=== PATIENT | female | born 1950 | race Caucasian/White ===

== ENCOUNTER 2024-11-08 13:51 | Outpatient (CLI) | payer MEDICARE, BC, SELFPAY | END 2024-11-08 13:52 | disposition home or self-care (01) | LOC: AMB 11-20 19:25 | PROVIDERS: PCP Family Medicine; Visit Provider Internal Medicine | DX: R07.9 Chest pain, unspecified (principal) | CPT/HCPCS: A0425; A0427 ==

== ENCOUNTER 2024-11-08 14:30 | Emergency (ER) | payer MEDICARE, BC, MEDICAID, SELFPAY ==
[2024-11-08] VITALS (66 sets, daily range): BP systolic 80–99; BP diastolic 54–71; PULSE 91–106; RESP 16; TEMP 36.7; O2SAT 96–100; BMI 46.5
--- OUTSIDE RECORDS SUMMARY | 2024-11-08 14:33 | XMS_ITS ---
Author Name Ellen, Clinic Address [address] [place] [address] Phone [phone] Organization [facility] e, NA DOCUMENT DISCLAIMER Multiple document versions may exist, please be sure you review the latest version. The information in the [facility] Continuity of Care Document represents a summary of certain health and medical information. It may not contain the complete medical history for the patient and should be independently verified. The represented time in the document is Eastern Time. 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 Active May 27, 2022 Encounter for adjustment and management of vascular access device Z45.2 Active January 17, 2022 Fever, unspecified R50.9 Active January 13, 2020 Pain, unspecified R52 Active January 13, 2020 Headache, unspecified R51.9 Active January 13, 2020 Hypertensive chronic kidney disease with stage 1 through stage 4 chronic kidney disease, or unspecified chronic kidney disease I12.9 Active 2019 Iron deficiency anemia, unspecified D50.9 Activ e November 22, 2019 End stage renal disease N18.6 Active 2019 Anemia in chronic kidney disease D63.1 Active November 22, 2019 Secondary hyperparathyroidism of renal origin N25.81 Active November 22, 2019 ALLERGIES AND ADVERSE REACTIONS Substance Reaction Severity Status Vicodin Flushing (Red Skin) Active brimonidine Unknown Active quinidine Skin Rash Active Darvocet-N Unknown Active Fluarix Quad Hives Moderate Active benzalkonium chloride Unknown Active cobalt Unknown Active IODINATED CONTRAST MEDIA Unknown Act luis latex Itching Active ASPIRIN Unknown Active oxycodone Unknown Active Levaquin Itching Active Talwin Nausea/Vomiting Active astemizole Unknown Active Toradol Nephrotoxicity Active Sulfa (Sulfonamide Antibiotics) Skin Rash Active MORPHINE Unknown Active Percodan Nausea/Vomiting Active LISINOPRIL Unknown Active succinylcholine Unknown Active propoxyphene Unknown Active cinacalcet Unknown Active pentazocine Unknown Active cranberry Unknown Active methacholine Unknown Active Naprosyn GI bleeding Active SOCIAL HISTORY Tobacco Use Status Tobacco Type Unknown if ever consumed tobacco - Caregiver Characteristics No Information Available Characteristics of Home environment No Information Available Gender and Sex Information Gender Identity Sexual Orientation Female No Information Avail able MEDICATIONS Prescribed Medications for Dialysis Treatments Medication Instructions Dosage Route Start Date End Date Stat Doxercalciferol (Hectorol) 3X Week 7 mcg Intravenous - push November 04, 2024 November 03, 2025 Active Heparin Sodium (Porcine) 1,000 Units/mL Catheter Lock Arterial Post Dialysis, Every Treatment 2000 units Arterial Red Port November 07, 2024 November 06, 2025 Active Heparin Sodium (Porcine) 1,000 Units/mL Catheter Lock Arterial Every Treatment 2000 units Arterial Red Port December 06, 2023 December 04, 2024 Active Heparin Sodium (Porcine) 1,000 Units/mL Catheter Lock Venous Every Treatment 2100 units Venous Blue Port December 06, 2023 December 04, 2024 Active Heparin Sodium (Porcine) 1,000 Units/mL Catheter Lock Venous Post Dialysis, Every Treatment 2100 units Venous Blue Port November 07, 2024 November 06, 2025 Active Heparin Sodium (Porcine) 1,000 Units/mL Systemic Bolus, Every Treatment, Total treatment minutes 180 4000 units Intravenous - push May 01, 2024 April 30, 2025 Active Heparin Sodium (Porcine) 1,000 Units/mL Systemic Bolus, Every Treatment, Total treatment minutes 180 4000 units Intravenous - push November 07, 2024 November 06, 2025 Active Mircera During Dialysis, Every 2 weeks 50 mcg Intravenous - push October 30, 2024 October 29, 2025 Active Doxercalciferol (Hectorol) 3X Week 5 mcg Intravenous - push October 02, 2024 October 01, 2025 Discontinued Iron Sucrose (Venofer) During Dialysis, 1X Week 50 mg Intravenous - push October 14, 2024 October 13, 2025 Discontinued Iron Sucrose (Venofer) During Dialysis, 3X Week 100 mg Intravenous - push October 02, 2024 October 11, 2024 Discontinued Home Medications Medication Instructions Dosage Route Start Date End Date Status acetaminophen 500 mg Take by mouth three times a day 2 capsule ORAL July 17, 2023 Active allopurinol 100 mg Take by mouth three times a week as directed 1 tablet ORAL August 18, 2017 Active amiodarone 200 mg Take by mouth once a day 1 tablet ORAL November 27, 2017 Active apixaban 2.5 mg by mouth twice a day 1 tablet ORAL August 02, 2023 Active Atrac-Tain (with AHA) 10-4% to affected area twice a day TOPICAL August 02, 2023 Active Belbuca 150 mcg BUCCAL September 20, 2024 Active carboxymethylcellulose sodium 1% into both eyes three times a day 2 drop OPHTHALMIC August 02, 2023 Active cephalexin 500 mg Take by mouth every morning 1 capsule ORAL May 09, 2023 Active cetirizine 5 mg Take by mouth once a day 1 tablet ORAL May 24, 2023 Active Cipro 500 mg Take by mouth every evening 1 tablet ORAL February 17, 2023 Active cyanocobalamin (vitamin B-12) 1,000 mcg Take by mouth every morning 1 capsule ORAL December 30, 2019 Active cyclobenzaprine 10 mg Take by mouth three times a day as needed 1 tablet ORAL May 24, 2023 Active doxycycline hyclate 100 mg Take by mouth twice a day 1 tablet ORAL October 04, 2023 Active Eucerin Original Apply to affected area twice a day as needed TOPICAL May 24, 2023 Active ferrous sulfate 325 mg (65 mg iron) Take by mouth once a day with meals 1 tablet ORAL May 24, 2023 Active Fosrenol 500 mg Take by mouth three times a day with meals 3 tablet ORAL September 29, 2023 Active Miralax 17 gram/dose Take dissolved in water once a day as directed 17 gram ORAL August 18, 2017 Active Nephro-Quincy 0.8 mg Take by mouth every evening with meals 1 tablet ORAL January 02, 2019 Active Nepro Carb Steady 0.08 gram-1.8 kcal/mL as needed ORAL May 24, 2023 Active nystatin 100,000 unit/gram Apply to affected area twice a day as needed TOPICAL November 22, 2019 Active omeprazole 20 mg Take by mouth once a day 1 capsule ORAL April 26, 2023 Active oxycodone 5 mg Take by mouth every four hours as needed for pain 1 tablet ORAL May 24, 2023 Active Senna-S 8.6-50 mg Take by mouth twice a day as needed 2 tablet ORAL December 30, 2019 Active Velphoro 500 mg Take by mouth three times a day with meals 1 tablet ORAL September 30, 2024 Active Zofran 8 mg Take by mouth every six hours as needed 1 tablet by mouth January 02, 2019 Active VITAL SIGNS Post-Treatment Vital Signs Vital Sign Value Date / Time Blood Pressure-sitting 129/74 mmHg October 232024 11:27 AM Heart Rate 101 beats per minute November 07, 2024 11:27 AM Respiratory Rate 16 breaths per minute October 232024 11:27 AM Temperature 97.8 deg. F November 07, 2024 11:27 AM Weight Vital Sign Value Date / Time Estimated Dry Weight 109.8 kg August 11:59 PM Pre-Dialysis 115.50 kg November 07, 2024 11:27 AM Post-Dialysis 113.30 kg November 07, 2024 11:27 AM Other Other Value Date / Time Height 157 cm February 26, 2024 12: 00 AM Body Mass Index 44.55 kg/m2 November 01, 2024 04:31 PM HEALTH CONCERNS LAB RESULTS Hematology Result Type Result Value Relevant Referen ce Range Interpretation Date Platelets 161 1000/mcL 130 - 400 1000/mcL - Augu 2023 UIBC (Calc) 116 mcg/dL 155 - 355 mcg/dL Low May 29, 2024 WBC (No Diff) 6.96 1000/mcL 4.80 - 10.80 1000/mcL - May 29, 2024 Ferritin 1054 ng/mL 10 - 291 ng/mL High May 29, 2024 TIBC 178 mcg/dL 185 - 515 mcg/dL Low May Transferrin Sat. (Calc) 35 % 20 - 55 % - May 29, 2024 WBC (No Diff) 7.40 1000/mcL 4.80 - 10.80 1000/mcL - June 26, 2024 Platelets 166 1000/mcL 130 - 400 1000/mcL - Jun emb2023 UIBC (Calc) 122 mcg/dL 155 - 355 mcg/dL Low Junemb 2023 Transferrin Sat. (Calc) 36 % 20 - 55 % - June 26, 2024 TIBC 192 mcg/dL 185 - 515 mcg/dL - 2023 Platelets 167 1000/mcL 130 - 400 1000/mcL - Octo 2023 UIBC (Calc) 152 mcg/dL 155 - 355 mcg/dL Low July 24, 2024 WBC (No Diff) 7.17 1000/mcL 4.80 - 10.80 1000/mcL - July 24, 2024 Transferrin Sat. (Calc) 31 % 20 - 55 % - July 24, 2024 TIBC 220 mcg/dL 185 - 515 mcg/dL - July 24, 2024 Hemoglobin x 3 30.3 % 36.0 - 48.0 % Low August 14, 2024 Hemoglobin x 3 31.2 % 36.0 - 48.0 % Low August 21, 2024 Ferritin 1039 ng/mL 10 - 291 ng/mL High August Platelets 174 1000/mcL 130 - 400 1000/mcL - Nove mber 2023 Hemoglobin x 3 31.2 % 36.0 - 48.0 % Low Novembe r 2023 RDW 14.7 % 11.5 - 14.5 % High August MCHC 32.3 g/dL 30.0 - 36.0 g/dL - August 28, 2024 MCH 33.0 pg 27.0 - 31.0 pg High August Iron 78 mcg/dL 30 - 160 mcg/dL - August 28, 2024 TIBC 222 mcg/dL 185 - 515 mcg/dL - August 28, 2024 UIBC (Calc) 144 mcg/dL 155 - 355 mcg/dL Low Novembe r 2023 Transferrin Sat. (Calc) 35 % 20 - 55 % - August 28 WBC (No Diff) 9.05 1000/mcL 4.80 - 10.80 1000/mcL - August 28, 2024 Hemoglobin x 3 29.7 % 36.0 - 48.0 % Low Novembe r 2023 Hemoglobin x 3 30.3 % 36.0 - 48.0 % Low Novembe r 2023 Hemoglobin x 3 31.8 % 36.0 - 48.0 % Low Novembe r 2023 Transferrin Sat. (Calc) 19 % 20 - 55 % Low September 25 TIBC 209 mcg/dL 185 - 515 mcg/dL - September 25, 2024 UIBC (Calc) 170 mcg/dL 155 - 355 mcg/dL - Decembe r 2023 Iron 39 mcg/dL 30 - 160 mcg/dL - September 25, 2024 MCHC 31.5 g/dL 30.0 - 36.0 g/dL - September 25, 2024 RDW 15.6 % 11.5 - 14.5 % High September MCH 32.6 pg 27.0 - 31.0 pg High September Platelets 128 1000/mcL 130 - 400 1000/mcL Low Dece mber 2023 Hemoglobin x 3 33.9 % 36.0 - 48.0 % Low Decembe r 2023 WBC (No Diff) 11.36 1000/mcL 4.80 - 10.80 1000/mcL High September 25, 2024 Hemoglobin x 3 36.0 % 36.0 - 48.0 % - Decembe r 2023 Hemoglobin x 3 33.9 % 36.0 - 48.0 % [facility] 11.3 g/dL 12.0 - 16.0 g/dL Low October 09, 2024 Hemoglobin x 3 34.8 % 36.0 - 48.0 % Low Decembe r 2023 HGB 11.6 g/dL 12.0 - 16.0 g/dL Low October 17, 2024 Hemoglobin x 3 31.2 % 36.0 - 48.0 % Low Decembe r 2023 HGB 10.4 g/dL 12.0 - 16.0 g/dL Low October 22, 2024 RBC 3.08 mill/mcL 4.20 - 5.40 mill/mcL Low October 30, 2024 WBC (No Diff) 10.47 1000/mcL 4.80 - 10.80 1000/mcL - October 30, 2024 MCHC 33.4 g/dL 30.0 - 36.0 g/dL - October 30, 2024 MCH 33.6 pg 27.0 - 31.0 pg High October HCT 30.9 % 37.0 - 47.0 % Low October 30, 2024 Platelets 117 1000/mcL 130 - 400 1000/mcL Low Senthil mary2024 Hemoglobin x 3 31.2 % 36.0 - 48.0 % Low October 30, 2024 HGB 10.4 g/dL 12.0 - 16.0 g/dL Low October 30, 2024 RDW 15.5 % 11.5 - 14.5 % High October 30, 2024 Transferrin Sat. (Calc) 57 % 20 - 55 % High October 30, 2024 TIBC 232 mcg/dL 185 - 515 mcg/dL - October 30, 2024 UIBC (Calc) 100 mcg/dL 155 - 355 mcg/dL Low October 30, 2024 Iron 132 mcg/dL 30 - 160 mcg/dL - October Iron 116 mcg/dL 30 - 160 mcg/dL - October 232024 UIBC (Calc) 127 mcg/dL 155 - 355 mcg/dL Low November 01, 2024 Neutrophils 84.9 % 40.0 - 75.0 % High October Monocytes 7.0 % 3.0 - 10.0 % - November 01, 2024 Lymphocytes 5.5 % 19.0 - 48.0 % Low October Basophils 1.2 % 0.0 - 1.5 % - November 01 025 Eosinophil 0.6 % 0.0 - 7.0 % - November 01 Platelets 128 1000/mcL 130 - 400 1000/mcL Low Senthil mary2024 CHARMAINE 1.0 % 0.0 - 4.0 % - November 01 025 Transferrin Sat. (Calc) 48 % 20 - 55 % - November 01, 2024 TIBC 243 mcg/dL 185 - 515 mcg/dL - November 01, 2024 HGB 9.6 g/dL 12.0 - 16.0 g/dL Low November 06, 2024 Hemoglobin x 3 28.8 % 36.0 - 48.0 % Low November 06, 2024 Metabolic/Renal Result Type Result Value Relevant Referen ce Range Interpretation Date URR, Calc 77 % 65 - 80 % - August 28 024 BUN, Post 14 mg/dL 6 - 19 mg/dL - August 28, 2024 Chloride 103 mEq/L 96 - 108 mEq/L - August Potassium 5.5 mEq/L 3.5 - 5.1 mEq/L High August 28, 2024 Bicarbonate 21 mEq/L 20 - 31 mEq/L - August Sodium 139 mEq/L 136 - 145 mEq/L - August 28, 2024 BUN/Creat Ratio 13.0 10.0 - 20.0 - August 28, 2024 Creatinine, Serum 4.70 mg/dL 0.60 - 1.30 mg/dL High August 28, 2024 BUN 61 mg/dL 6 - 19 mg/dL High August 28, 2024 Bicarbonate 25 mEq/L 20 - 31 mEq/L - September Chloride 103 mEq/L 96 - 108 mEq/L - September Potassium 4.7 mEq/L 3.5 - 5.1 mEq/L - September 25, 2024 Sodium 141 mEq/L 136 - 145 mEq/L - September 25, 2024 BUN/Creat Ratio 16.2 10.0 - 20.0 - September 25, 2024 URR, Calc 91 % 65 - 80 % High September 25 024 BUN, Post 7 mg/dL 6 - 19 mg/dL - September 25, 2024 Creatinine, Serum 4.94 mg/dL 0.60 - 1.30 mg/dL High September 25, 2024 BUN 80 mg/dL 6 - 19 mg/dL High September 25, 2024 BUN, Post 19 mg/dL 6 - 19 mg/dL - October 30, 2024 URR, Calc 80 % 65 - 80 % - October 30 Bicarbonate 22 mEq/L 20 - 31 mEq/L - October Chloride 104 mEq/L 96 - 108 mEq/L - October Potassium 7.0 mEq/L 3.5 - 5.1 mEq/L High October Sodium 141 mEq/L 136 - 145 mEq/L - October BUN/Creat Ratio 19.0 10.0 - 20.0 - October 30, 2024 Creatinine, Serum 4.89 mg/dL 0.60 - 1.30 mg/dL High October 30, 2024 BUN 93 mg/dL 6 - 19 mg/dL High October 30, 2024 Potassium 6.1 mEq/L 3.5 - 5.1 mEq/L High October 232024 Sodium 141 mEq/L 136 - 145 mEq/L - October 232024 Bicarbonate 24 mEq/L 20 - 31 mEq/L - October Chloride 103 mEq/L 96 - 108 mEq/L - October Creatinine, Serum 4.21 mg/dL 0.60 - 1.30 mg/dL High November 01, 2024 BUN 78 mg/dL 6 - 19 mg/dL High November 01, 2024 BUN/Creat Ratio 18.5 10.0 - 20.0 - November 01, 2024 URR, Calc 78 % 65 - 80 % - November 01 BUN, Post 17 mg/dL 6 - 19 mg/dL - November 01, 2024 Potassium 5.6 mEq/L 3.5 - 5.1 mEq/L High October 232024 HD Adequacy Result Type Result Value Relevant Referen ce Range Interpretation Date Krt/V 0.00 No Reference Ran ge Provided - May 29, 2024 Krt/V 0.00 No Reference Ran ge Provided - June 26, 2024 Krt/V 0.00 No Reference Ran ge Provided - July 24, 2024 wstdKt/V, residual 0.0 No Reference Range Provided - August 28, 2024 wstdKt/V without residual 2.5 No Reference Range Provided - August 28, 2024 spKt/V (Daugirdas II) 1.70 No Reference Range Provided - August 28, 2024 eKt/V ([place]) 1.48 No Reference Range Provided - August 28, 2024 wstdKt/V 2.5 No Reference Ran ge Provided - August 28, 2024 spKt/V Gotch 1.77 No Reference Ran ge Provided - August 28, 2024 Krt/V 0.00 No Reference Ran ge Provided - August 28, 2024 Krt/V 0.00 No Reference Ran ge Provided - September 25, 2024 spKt/V Gotch 3.08 No Reference Ran ge Provided - September 25, 2024 wstdKt/V without residual 3.0 No Reference Range Provided - September 25, 2024 eKt/V ([place]) 2.57 No Reference Range Provided - September 25, 2024 spKt/V (Daugirdas II) 2.96 No Reference Range Provided - September 25, 2024 wstdKt/V 3.0 No Reference Ran ge Provided - September 25, 2024 wstdKt/V, residual 0.0 No Reference Range Provided - September 25, 2024 wstdKt/V without residual 2.6 No Reference Range Provided - October 30, 2024 wstdKt/V, residual 0.0 No Reference Range Provided - October 30, 2024 spKt/V (Daugirdas II) 1.85 No Reference Range Provided - October 30, 2024 wstdKt/V 2.6 No Reference Ran ge Provided - October 30, 2024 eKt/V ([place]) 1.62 No Reference Range Provided - October 30, 2024 Krt/V 0.00 No Reference Ran ge Provided - October 30, 2024 spKt/V Gotch 1.92 No Reference Ran ge Provided - October 30, 2024 wstdKt/V, residual 0.0 No Reference Range Provided - November 01, 2024 Krt/V 0.00 No Reference Ran ge Provided - November 01, 2024 wstdKt/V 2.6 No Reference Ran ge Provided - November 01, 2024 wstdKt/V without residual 2.6 No Reference Range Provided - November 01, 2024 eKt/V ([place]) 1.57 No Reference Range Provided - November 01, 2024 spKt/V (Daugirdas II) 1.80 No Reference Range Provided - November 01, 2024 spKt/V Gotch 1.89 No Reference Ran ge Provided - November 01, 2024 Bone/Mineral Result Type Result Value Relevant Referen ce Range Interpretation Date Magnesium 2.3 mg/dL 1.6 - 2.6 mg/dL - December 01, 2023 Magnesium 2.0 mg/dL 1.6 - 2.6 mg/dL - February 20 Vitamin D 25 Hydroxy 29.3 ng/mL 30.0 - 100.0 ng/mL Low February 21, 2024 Magnesium 2.3 mg/dL 1.6 - 2.6 mg/dL - May PTH-Intact, Plasma 514 pg/mL 16 - 80 pg/mL High May us2023 PTH-Intact, Plasma 414 pg/mL 16 - 80 pg/mL High Sep tember 2023 PTH-Intact, Plasma 603 pg/mL 16 - 80 pg/mL High Jul zaira2023 PTH-Intact, Plasma 1095 pg/mL 16 - 80 pg/mL High Aug Vitamin D 25 Hydroxy 13.2 ng/mL 30.0 - 100.0 ng/mL Low August 28, 2024 Magnesium 2.1 mg/dL 1.6 - 2.6 mg/dL - August 28, 2024 Corrected Ca x P Product 62 0 - 54 High August 28 Calcium, Total 8.8 mg/dL 8.7 - 10.4 mg/dL - 2023 Ca x P Product 62 0 - 54 High August Phosphorus 7.0 mg/dL 2.6 - 4.5 mg/dL High August 28, 2024 Alkaline Phosphatase 192 U/L 35 - 104 U/L High No vember 2023 Ca x P Product 54 0 - 54 - September Phosphorus 6.2 mg/dL 2.6 - 4.5 mg/dL High September 25, 2024 Calcium, Total 8.7 mg/dL 8.7 - 10.4 mg/dL - 2023 Corrected Ca x P Product 55 0 - 54 High September 25 PTH-Intact, Plasma 1289 pg/mL 16 - 80 pg/mL High Sep PTH-Intact, Plasma 1352 pg/mL 16 - 80 pg/mL High Oct Corrected Ca x P Product 65 0 - 54 High October 30, 2024 Ca x P Product 66 0 - 54 High October Phosphorus 7.6 mg/dL 2.6 - 4.5 mg/dL High October Calcium, Total 8.7 mg/dL 8.7 - 10.4 mg/dL - 2024 Phosphorus 6.9 mg/dL 2.6 - 4.5 mg/dL High October 232024 Calcium, Total 8.8 mg/dL 8.7 - 10.4 mg/dL - 2024 Ca x P Product 61 0 - 54 High October Magnesium 2.2 mg/dL 1.6 - 2.6 mg/dL - October 232024 Liver/Nutrition Result Type Result Value Relevant Referen ce Range Interpretation Date eNPCR 1.07 No Reference Ran ge Provided - August 28, 2024 A/G Ratio 1.8 1.0 - 2.0 - August 28 024 Globulin (Calc) 2.2 g/dL 2.0 - 4.0 g/dL - 2023 Albumin (BCG) 4.0 g/dL 3.5 - 5.2 g/dL - 2023 Total Protein 6.2 g/dL 6.0 - 8.5 g/dL - 2023 A/G Ratio 2.0 1.0 - 2.0 - September 25 Globulin (Calc) 2.0 g/dL 2.0 - 4.0 g/dL - 2023 Albumin (BCG) 3.9 g/dL 3.5 - 5.2 g/dL - 2023 Total Protein 5.9 g/dL 6.0 - 8.5 g/dL Low 2023 eNPCR 1.72 No Reference Ran ge Provided - September 25, 2024 A/G Ratio 2.1 1.0 - 2.0 High October 30 Globulin (Calc) 2.0 g/dL 2.0 - 4.0 g/dL - 2024 eNPCR 1.62 No Reference Ran ge Provided - October 30, 2024 Albumin (BCG) 4.2 g/dL 3.5 - 5.2 g/dL - October 30, 2024 Total Protein 6.2 g/dL 6.0 - 8.5 g/dL - October 30, 2024 Total Protein 6.2 g/dL 6.0 - 8.5 g/dL - November 01, 2024 eNPCR 1.49 No Reference Ran ge Provided - November 01, 2024 Trace Elements Result Type Result Value Relevant Reference Range Interpre tation Date Aluminum 6 mcg/L 0 - 10 mcg/L - August 28, 2024 Infectious Diseases Result Type Result Value Relevant Referen ce Range Interpretation Date Hep B Surface Ab (anti-HBs) < 10 mIU/mL No Reference Range Provided - August 28, 2024 Hep B Surface Ag (HBsAg) Negative No Reference Range Provided - October 30, 2024 DIALYSIS PRESCRIPTION Conventional Hemodialysis Data Element Value Order Date/Time August 30, 2024 Frequency 3X Week Treatment Days MonWedFri Dialyzer [id number] Optiflux Treatment Time (Total Minutes) 240 min Blood Flow Rate (mL/min) 450 mL/min Dialysate Flow Rate Manual 800 Estimated Dry Weight 109.8 kg Dialysate Concentrate 2.0 K, 2.5 Ca, 1.0 Mg, 100 Dextrose (G2251) Sodium (mEq/L) 138 mEq/L Bicarb Machine Setting (mEq/L) 33 mEq/L Dialysis Access Hemodialysis-CV Cath eter-Tunneled, Chest, Right Jugular Access Placed on January 14, 2022 IMMUNIZATIONS Vaccine Date Dose Route Status [id number]-P-[id number], series 2 of February 26, 2020 40.0 mcg Int ramuscular Completed XSNYLJP-[id number]-PGDIZ, series 1 of January 22, 2020 40.0 mcg I ntramuscular Completed IXWWROL-W-HDLEN, series 4 of January 23, 2019 40.0 mcg I ntramuscular Completed WQGLDKG-D-[id number], series 3 of October 24, 2018 40.0 mcg Intramuscular Completed QXHQBDT-G-LORAV, series 2 of September 26, 2018 40.0 mcg Intramuscular Completed VCVQJVH-F-ZSPLC, series 1 of August 29, 2018 40.0 mcg Intramuscular Completed PREVNAR May 23, 2018 0.5 mL Intramuscular Comple aydee [id number] December 27, 2017 40.0 mcg Intramuscular Co mpleted PNEUMOVAX November 06, 2017 0.5 mL Intramuscular Com pleted [id number]-Y-KNRIO October 09, 2017 40.0 mcg Intramuscular Completed KDMPUED-Q-CVBVM September 06, 2017 40.0 mcg Intramuscular Completed GBQJITP-X-JBWIS August 09, 2017 40.0 mcg Intramuscular Completed TRANSPLANT WAITLIST STATUS No Information on Transplant Waitlist Status ADVANCE DIRECTIVES Directive Description Ordered By Effective Date Resuscitation status Full Code Wesley Hrerera Jan 05, 2024 DIALYSIS TREATMENTS Conventional Hemodialysis Date Pre-Treatment Vitals Post-Treatment Sherice ls Duration (hr) BFR (mL/min) Dialysate Dialyzer Dialysis Access Meds Admin Oct 2024 Weight 118.70 kg Weight 115.80 kg 04:00:00 460 2.0 K, 2.5 Ca, 1.0 Mg, 100 Dextrose (G2251) 180nre Optifl ux Blood Pressure-sitting 150/82 mmHg Blood Pressure-sit ting 115/69 mmHg Heart Rate 91 beats per minute Heart Rate 106 beat s per minute Respiratory Rate 20 breaths per minute Respiratory Rate 16 breaths per minute Temperature 97.7 deg. F Temperature 97.4 deg. F November 06, 2024 Weight 118.10 kg Weight 115.90 kg 03:55:00 460 2.0 K, 2.5 Ca, 1.0 Mg, 100 Dextrose (G2251) 180nre Optiflux Hemodialysis-CV Catheter-Tunneled, Chest, Right Jugular Access Placed on January 14, 2022 Doxercalciferol (Hectorol); 7mcg,Intravenous - push Heparin Sodium (Porcine) 1,000 Units/mL Catheter Lock Arterial; 2000units,Arterial Red Port Heparin Sodium (Porcine) 1,000 Units/mL Catheter Lock Venous; 2100units,Venous Blue Port Heparin Sodium (Porcine) 1,000 Units/mL Systemic; 4000units,Intravenous - push Blood Pressure-sitting 131/74 mmHg Blood Pressure-sit ting 109/61 mmHg Heart Rate 98 beats per minute Heart Rate 104 beat s per minute Respiratory Rate 20 breaths per minute Respiratory Rate 18 breaths per minute Temperature 97.9 deg. F Temperature 97.8 deg. F November 07, 2024 Weight 115.50 kg Weight 113.30 kg 03:32:00 300 3.0 K, 2.5 Ca, 1.0 Mg, 100 Dextrose (G3251) 160nre Optiflux Hemodialysis-CV Catheter-Tunneled, Chest, Right Jugular Access Placed on January 14, 2022 Heparin Sodium (Porcine) 1,000 Units/mL Catheter Lock Arterial; 2000units,Arterial Red [place] Heparin Sodium (Porcine) 1,000 Units/mL Catheter Lock Venous; 2100units,Venous Blue Port Heparin Sodium (Porcine) 1,000 Units/mL Systemic; 4000units,Intravenous - push Blood Pressure-sitting 120/66 mmHg Blood Pressure-sit ting 129/74 mmHg Heart Rate 102 beats per minute Heart Rate 101 conchita ts per minute Respiratory Rate 16 breaths per minute Respiratory Rate 16 breaths per minute Temperature 97.6 deg. F Temperature 97.8 deg. F
[2024-11-08 15:25] LABS: Lactate* 1.8 mmol/L (0.5-1.9)
[2024-11-08 15:32] LABS: Basophils Absolute Auto 0.03 K/uL (0.00-0.30); Basophils Percent Auto 0.5 % (0.0-3.0); Eosinophils Absolute Auto 0.13 K/uL (0.00-0.50); Eosinophils Percent Auto 2.2 % (0.0-7.0); Hematocrit 33.4 % (33.0-51.0); Hemoglobin* 10.4 gm/dL (12.0-16.0); Immature Granulocytes Abs Auto 0.11 K/uL (0.00-0.30); Immature Granulocytes Pct Auto 1.8 %; Lymphocytes Percent Auto 11.7 % (20-44); Mean Corpuscular HGB Conc 31 gm/dL (32-36); Mean Corpuscular Hemoglobin 33 pg (26-34); Mean Corpuscular Volume 105 fL (80-100); Monocytes Percent Auto 7.6 % (0.0-11.0); Neutrophils Percent Auto 76.2 % (42.0-72.0); Platelet Count* 179 K/uL (140-440); RDW Coefficient of Variation % 14.7 % (11.5-15.5); Red Blood Count 3.18 m/uL (4.00-5.20); White Blood Count* 5.96 K/uL (4.50-11.00)
[2024-11-08 15:34] LABS: Troponin, Point-of-Care* 0.03 ng/ml (0.01-0.04)
--- NOTE | 2024-11-08 15:34 | ED_ITS ---
HPI - General Adult General Chief complaint: Chest Pain Stated complaint: weakness Time Seen by Provider: 11/08/24 14:39 Source: patient History of Present Illness HPI narrative: 74-year-old female with a history of dialysis for last 8 years presents to the emergency department with chest pain while at dialysis. Started about an hour prior to arrival. She had been on dialysis for about 3 hours at that point. She had 2 L of fluid taken off which is pretty typical for her. She does typically dialyzed for about 4 hours total. When she let her nurse know that she was having chest pain, they did stop the dialysis immediately. She denies any feelings of recent illness. There is no fever, no dysuria, she is not having diarrhea. She admits that she has been significantly more fatigued than usual over the last couple of weeks. No known illness exposures. States that her blood counts have been a little bit abnormal specifically that she has had phosphorus and potassium levels that have been higher than usual. She attributes this to the fact that she was supposed to be on prednisone for 5 days back in August but it sounds like there was a glitch in the orders and she stayed on the prednisone until last week. This was stopped 8 days ago. The chest pain has improved now it is very mild and dull and achy. She reports that the pain was initially substernal, not accompanied by shortness of breath. [place] ?heavy?. She has no prior history of coronary artery disease. No prior stents, no bypass surgery. She has not had any recent stress test. Dialysis for 8 years, etiology of kidney failure she reports is related to sepsis in her kidney s never recovered. She lives at [facility] and dialyzes 3 times per week at [facility] in [place]. Dialyzes through a central line in her right chest, does have a fistula in her left upper arm but reports that has been nonfunctional for the past 2 years. She reports that the he does get the central line changed periodically and has not noted any redness or diffi culty with that. Reports that her ghost writer wanted her to go to [facility] but we did not have ambulance availability for that today. Past medical history is notable for multiple allergies, end-stage chronic kidney disease, AFib, GERD. ROS is notable for the fatigue and chest pain as described above. Chest pain has improved. Reports difficulty with ambulation, movement. No new skin sores, breathing changes or other illness times 12 systems. Related Data Home Medications ?Medication ?Instructions ?Recorded ?Confirmed acetaminophen .Route 11/08/24 allopurinol 100 mg tablet mg 11/08/24 amiodarone 200 mg tablet mg DAILY 11/08/24 apixaban 2.5 mg tablet (Eliquis) mg 11/08/24 cyclobenzaprine 10 mg tablet mg 3XD 11/08/24 doxycycline hyclate 100 mg tablet mg 11/08/24 ferrous fumarate 325 mg (106 mg 325 mg PO DAILY 11/08/24 11/08/24 iron) tablet (Ferretts) nystatin 100,000 unit/gram topical topical 11/08/24 ointment omeprazole 20 mg capsule,delayed 20 mg PO DAILY 11/08/24 11/08/24 release oxycodone 5 mg tablet mg 11/08/24 sucroferric oxyhydroxide 500 mg 500 mg PO TID 11/08/24 11/08/24 chewable tablet (Velphoro) Allergies Allergy/AdvReac Type Severity Reaction Status Date / Time aspirin Allergy Unknown Unverified 11/08/24 15:06 astemizole Allergy Unknown Unverified 11/08/24 15:06 benzalkonium Allergy Unknown Unverified 11/08/24 15:06 brimonidine Allergy Unknown Unverified 11/08/24 15:06 cinacalcet Allergy Unknown Unverified 11/08/24 15:06 cobalt Allergy Unknown Unverified 11/08/24 15:06 cranberry Allergy Unknown Unverified 11/08/24 15:06 influenza virus vaccine ts Allergy Unknown Unverified 11/08/24 15:06 [id number] (36 mos,up) (From Fluarix) Iodinated Contrast Media Allergy Unknown Unverified 11/08/24 15:06 ketorolac (From Toradol) Allergy Unknown Unverified 11/08/24 15:06 latex Allergy Unknown Unverified 11/08/24 15:06 levofloxacin (From Levaquin) Allergy Unknown Unverified 11/08/24 15:06 lisinopril Allergy Unknown Unverified 11/08/24 15:06 methacholine Allergy Unknown Unverified 11/08/24 15:06 morphine Allergy Unknown Unverified 11/08/24 15:06 naproxen (From Naprosyn) Allergy Unknown Unverified 11/08/24 15:06 oxycodone Allergy Unknown Unverified 11/08/24 15:06 pentazocine Allergy Unknown Unverified 11/08/24 15:06 propoxyphene Allergy Unknown Unverified 11/08/24 15:06 quinidine Allergy Unknown Unverified 11/08/24 15:06 succinylcholine Allergy Unknown Unverified 11/08/24 15:06 Sulfa (Sulfonamide AdvReac Unknown Unverified 11/08/24 15:06 Antibiotics) acetaminophen (From Vicodin) AdvReac Verified 11/08/24 15:06 hydrocodone (From Vicodin) AdvReac Verified 11/08/24 15:06 Exam Const: Vital Signs, click to edit/add: Vital Signs - 24 hr 11/08/24 14:40 11/08/24 14:42 11/08/24 14:43 Temperature 98.0 F Pulse Rate 104 H 104 H Pulse Rate [Right Pulse Oximeter] 103 H Respiratory Rate 16 Blood Pressure 94/71 Blood Pressure [Le ft Forearm] 94/71 Pulse Oximetry 97 100 98 Oxygen Delivery Me thod Nasal Cannula Oxygen Flow Rate 2 11/08/24 15:00 11/08/24 15:01 11/08/24 15:17 Temperature Pulse Rate 106 H 104 H 102 H Pulse Rate [Right Pulse Oximeter] Respiratory Rate Blood Pressure 83/63 L 88/65 L Blood Pressure [Le ft Forearm] Pulse Oximetry 98 99 98 Oxygen Delivery Me thod Oxygen Flow Rate 11/08/24 15:18 11/08/24 15:20 11/08/24 15:23 Temperature Pulse Rate 104 H 98 Pulse Rate [Right Pulse Oximeter] Respiratory Rate Blood Pressure Blood Pressure [Le ft Forearm] Pulse Oximetry 98 99 96 Oxygen Delivery Me thod Nasal Cannula Oxygen Flow Rate 2 11/08/24 15:25 11/08/24 15:30 11/08/24 15:31 Temperature Pulse Rate 95 96 95 Pulse Rate [Right Pulse Oximeter] Respiratory Rate Blood Pressure 88/62 L Blood Pressure [Le ft Forearm] Pulse Oximetry 100 100 100 Oxygen Delivery Me thod Oxygen Flow Rate 11/08/24 15:35 11/08/24 15:40 11/08/24 15:41 Temperature Pulse Rate 96 96 97 Pulse Rate [Right Pulse Oximeter] Respiratory Rate Blood Pressure 86/63 L Blood Pressure [Le ft Forearm] Pulse Oximetry 100 100 99 Oxygen Delivery Me thod Oxygen Flow Rate 11/08/24 15:45 11/08/24 15:46 11/08/24 15:50 Temperature Pulse Rate 96 98 97 Pulse Rate [Right Pulse Oximeter] Respiratory Rate Blood Pressure 86/61 L Blood Pressure [Le ft Forearm] Pulse Oximetry 100 99 99 Oxygen Delivery Me thod Oxygen Flow Rate 11/08/24 15:51 11/08/24 15:52 11/08/24 15:55 Temperature Pulse Rate 98 93 93 Pulse Rate [Right Pulse Oximeter] Respiratory Rate Blood Pressure 86/62 L Blood Pressure [Le ft Forearm] Pulse Oximetry 99 99 99 Oxygen Delivery Me thod Oxygen Flow Rate 11/08/24 15:56 11/08/24 16:00 11/08/24 16:01 Temperature Pulse Rate 95 97 95 Pulse Rate [Right Pulse Oximeter] Respiratory Rate Blood Pressure 80/66 L 89/58 L Blood Pressure [Le ft Forearm] Pulse Oximetry 99 99 99 Oxygen Delivery Me thod Oxygen Flow Rate 11/08/24 16:05 11/08/24 16:06 11/08/24 16:07 Temperature Pulse Rate 98 98 95 Pulse Rate [Right Pulse Oximeter] Respiratory Rate Blood Pressure 87/63 L Blood Pressure [Le ft Forearm] Pulse Oximetry 97 100 98 Oxygen Delivery Me thod Oxygen Flow Rate 11/08/24 16:10 11/08/24 16:11 11/08/24 16:15 Temperature Pulse Rate 97 94 93 Pulse Rate [Right Pulse Oximeter] Respiratory Rate Blood Pressure 92/54 L Blood Pressure [Le ft Forearm] Pulse Oximetry 100 99 98 Oxygen Delivery Me thod Oxygen Flow Rate 11/08/24 16:16 11/08/24 16:20 11/08/24 16:21 Temperature Pulse Rate 100 101 H 95 Pulse Rate [Right Pulse Oximeter] Respiratory Rate Blood Pressure 88/66 L 87/66 L Blood Pressure [Le ft Forearm] Pulse Oximetry 99 99 100 Oxygen Delivery Me thod Oxygen Flow Rate 11/08/24 16:25 11/08/24 16:26 11/08/24 16:30 Temperature Pulse Rate 99 93 99 Pulse Rate [Right Pulse Oximeter] Respiratory Rate Blood Pressure 88/65 L Blood Pressure [Le ft Forearm] Pulse Oximetry 99 100 99 Oxygen Delivery Me thod Oxygen Flow Rate 11/08/24 16:31 11/08/24 16:35 11/08/24 16:36 Temperature Pulse Rate 101 H 99 100 Pulse Rate [Right Pulse Oximeter] Respiratory Rate Blood Pressure 94/71 94/66 Blood Pressure [Le ft Forearm] Pulse Oximetry 99 100 100 Oxygen Delivery Me thod Oxygen Flow Rate 11/08/24 16:40 11/08/24 16:41 11/08/24 16:45 Temperature Pulse Rate 97 96 100 Pulse Rate [Right Pulse Oximeter] Respiratory Rate Blood Pressure 91/63 Blood Pressure [Le ft Forearm] Pulse Oximetry 97 99 100 Oxygen Delivery Me thod Oxygen Flow Rate Common normals: no apparent distress and alert Other: Morbidly obese but does seem to be a good historian. Can speak in full sentence without difficulty. Pale, does not appear diaphoretic. HENMT: Common normals: head/scalp atraumatic, moist oral mucous membranes and oropharynx normal Head and scalp: atraumatic Mouth: oral and palatal mucosa normal Throat: posterior oropharynx normal Eye: Common normals: conjunctivae normal General eye: normal appearance of both eyes Conjunctiva: conjunctiva(e) normal Neck & C-Spine: Common normals: full ROM and no lymphadenopathy Resp: Common normals: normal respiratory effort and no use of accessory muscles Other: Slightly decreased at the bases but I think this is mostly positional. Ken lift at baseline. Cardio: Common normals: regular rate, regular rhythm, S1 normal heart sound and S2 normal heart sound Rate: regular rate Rhythm: regular rhythm Heart sounds: S1 normal and S2 normal Other: Heart sounds are distant but no obvious murmurs or gallop. GI: Common normals: Normal to inspection, nondistended, normoactive bowel sounds present, soft to palpation and no masses Palpation: soft Other: Difficult to feel organs due to obesity. Extremity: Other: Skin grafting and scars consistent with her reported history of compound fractures and required grafting. Trace edema, appears dependent but symmetric. Neuro: Sensorium/orientation: alert Other: Global generalized weakness but reported to be a Ken lift at baseline. Psych: Common normals: speech normal Speech: normal speech Other: Flat affect but answers questions appropriately and does her best to participate in exam. Skin: Narrative: Bruising along the legs with some dependent lymphedema. No open sores or ulcers. Skin grafting consistent with her reported history. Course Course ED Course: 74-year-old female with acute episode of chest pain while at dialysis. Blood pressures are borderline low, not unexpected. I am hesitant to treat this with IV fluid, as she is likely to have difficulty managing that fluid due to her chronic kidney disease. It does not sound as though more fluid was taken off than usual. Will obtain EKG, serial troponins, typical labs. At this point, she is asymptomatic. Consider Cardiology consult as troponins are likely to be abnormal from her chronic kidney disease. Reevaluation(s) Time of Reevaluation #1: 17:20 Reevaluation #1: Reviewed findings with patient. Blood pressures are steadily in the 90s over 60s to 70s, not abnormal for a dialysis patient. Heart rate 90s to around 100, no other abnormalities. Blood work is actually very reassuring. Electrolytes are in a nice range. She has not had return of her chest pain since arrival to the ED. EKGs are unchanged. Troponins are negative x2. Remainder of labs are all reassuring. I am electing not to treat the borderline low blood pressures since we are not seeing any signs of organ damage and she does not have dialysis now for 2 more days. She was dialyzed 3 days in a row and I think she is at risk of becoming fluid overloaded pretty easily if I give her IV fluids unnecessarily. Rationale was discussed with patient. It is possible the patient had some temporarily reduced blood flow to the heart because of the a ggressive dialysis but there are no signs of persistent coronary ischemia. Patient will be discharged back to her correction facility, continue her home medications and her dialysis schedule has typical. If she continues to have these episodes with dialysis, would recommend a coronary angiogram. Vital Signs Vital signs: Initial Vital Signs Temperature 98.0 F 11/08/24 14:40 Temperature Source Temporal Artery Scan 11/08/24 14:40 Pulse Rate 103 H 11/08/24 14:40 Respiratory Rate 16 11/08/24 14:40 Blood Pressure 94/71 11/08/24 14:40 Blood Pressure Mean 78 11/08/24 14:40 Pulse Oximetry 97 11/08/24 14:40 Oxygen Delivery Method Nasal Cannula 11/08/24 14:40 Oxygen Flow Rate 2 11/08/24 14:40 Vital Signs Temperature 98.0 F 11/08/24 14:40 Pulse Rate 103 H 11/08/24 14:40 Respiratory Rate 16 11/08/24 14:40 Blood Pressure 94/71 11/08/24 14:40 Pulse Oximetry 97 11/08/24 14:40 Oxygen Delivery Method Nasal Cannula 11/08/24 14:40 Oxygen Flow Rate 2 11/08/24 14:40 Temperature 98.0 F 11/08/24 14:40 Pulse Rate 100 11/08/24 16:45 Respiratory Rate 16 11/08/24 14:40 Blood Pressure 91/63 11/08/24 16:41 Pulse Oximetry 100 11/08/24 16:45 Oxygen Delivery Method Nasal Cannula 11/08/24 15:23 Oxygen Flow Rate 2 11/08/24 15:23 Medical Decision Making Lab Data Lab results reviewed: Yes I reviewed the patient's lab results Lab results narrative: Labs reassuring. Troponins negative x2. Electrolytes all within excellent range. Labs: Lab Results 11/08/24 11/08/24 11/08/24 Range/Units 15:07 15:20 17:00 WBC 5.96 (4.50-11.00) K/uL RBC 3.18 L (4.00-5.20) m/uL Hgb 10.4 L (12.0-16.0) gm/dL Hct 33.4 (33.0-51.0) % MCV 105 H (80-100) fL MCH 33 (26-34) pg MCHC 31 L (32-36) gm/dL RDW Coeff of Nba 14.7 (11.5-15.5) % Plt Count 179 (140-440) K/uL Neut % (Auto) 76.2 H (42.0-72.0) % Lymph % (Auto) 11.7 L (20-44) % [place] % (Auto) 7.6 (0.0-11.0) % Eos % (Auto) 2.2 (0.0-7.0) % Baso % (Auto) 0.5 (0.0-3.0) % Neut # (Auto) 4.50 (1.7-7.0) K/uL Lymph # (Auto) 0.70 L (0.90-2.90) K/uL [place] # (Auto) 0.50 (0.00-0.90) K/UL Eos # (Auto) 0.13 (0.00-0.50) K/uL Baso # (Auto) 0.03 (0.00-0.30) K/uL Abs Immat Gran (auto) 0.11 (0.00-0.30) K/uL Imm/Tot Granulo (auto) 1.8 % Sodium 135 (135-149) mmol/L Potassium 3.3 L (3.6-5.1) mmol/L Chloride 100 (96-114) mmol/L Carbon Dioxide 26 (20-32) mmol/L Anion Gap 9 (7-15) mEq/L BUN 12 (7-30) mg/dL Creatinine 1.5 (0.5-1.5) mg/dL Estimated Creat Clear 26.42 Estimated GFR 37 ml/min Glucose 125 H (60-115) mg/dL Lactate 1.8 (0.5-1.9) mmol/L Calcium 9.0 (8.4-10.6) mg/dL Phosphorus 2.5 (2.5-4.5) mg/dL Total Bilirubin 0.5 (0.1-1.5) mg/dL AST 16 (12-35) U/L ALT 20 (4-35) U/L Alkaline Phosphatase 154 H (40-150) U/L Troponin I 0.01 (0.01-0.04) ng/mL C-Reactive Protein 3.8 H (0.5-1.0) mg/dL NT-Pro-B Natriuret Pep 41039 pg/mL Total Protein 6.5 (6.0-8.3) g/dL Albumin 4.0 (3.3-5.0) g/dL SARS-CoV-2 (PCR) Negative SARS-CoV-2 (Negative) Influenza Type A (PCR) Negative PCR FLU A (Negative) Influenza Type B (PCR) Negative PCR FLU B (Negative) RSV (PCR) Negative PCR RSV (Negative) POC Troponin I 0.03 0.03 (0.01-0.04) ng/ml ECG Data Attestation: I personally reviewed and interpreted this ECG as follows: Prior ECG tracings: available for review Interpretation: Comparison 11/13/2019. Lower voltage unfortunately this time than 5 years ago but appear fairly consistent in terms of intervals and axis switch her both essentially unchanged. Some QT prolongation is unchanged from 2020. No obvious acute ischemia or ST changes. Discharge Plan Discharge Clinical Impression: Chest pain Patient Disposition: Home w/ Parent or Adult Condition: Improved Instructions: Chest Pain (DC) Additional Instructions: As we discussed, I think the or chest pain was a result of aggressive dialysis and temporary reduced blood flow to the heart from low blood pressure. Thankfully, there are no signs of any heart damage. I am glad that you have a couple of days off of dialysis. They have done an excellent job of normalizing your electrolytes and fluid balance with these 3 aggressive dialysis days in a row. We are not seeing any signs of heart attack, abnormal heart rhythm or other abnormality. I think it is safe for you to continue your medications as prescribed and plan to resume dialysis on Monday. If you keep having these episodes, I would recommend a referral for a coronary angiogram. Activity Level: Activity as Tolerated Discharge Diet: Regular Prescriptions: No Action allopurinol 100 mg tablet Patient Comments: [NO ORIGINAL SIG] cyclobenzaprine 10 mg tablet 3XD nystatin 100,000 unit/gram ointment topical amiodarone 200 mg tablet DAILY doxycycline hyclate 100 mg tablet oxycodone 5 mg tablet Patient Comments: [NO ORIGINAL SIG] Eliquis 2.5 mg tablet omeprazole 20 mg capsule,delayed release(DR/EC) 20 mg PO DAILY Velphoro 500 mg tablet,chewable 500 mg PO TID Ferretts 325 mg (106 mg iron) tablet 325 mg PO DAILY acetaminophen .Route Follow Up/Referrals: Samir Rascon MD [Primary Care Provider] - Stand Alone Forms: [place] Info Instructions
[2024-11-08 15:43] LABS: Slide Review Reflex No
[2024-11-08 15:44] LABS: Chloride* 100 mmol/L (96-114); Sodium* 135 mmol/L (135-149)
[2024-11-08 15:45] LABS: Potassium* 3.3 mmol/L (3.6-5.1)
[2024-11-08 15:46] LABS: Creatinine* 1.5 mg/dL (0.5-1.5); Est. Creatinine Clearance* 26.42; Estimated Glomerular Filt Rate 37 ml/min
[2024-11-08 15:47] LABS: Alanine Aminotransferase* 20 U/L (4-35); Alkaline Phosphatase* 154 U/L (40-150); Anion Gap 9 mEq/L (7-15); Aspartate Amino Transferase* 16 U/L (12-35); Bilirubin Total* 0.5 mg/dL (0.1-1.5); Blood Urea Nitrogen* 12 mg/dL (7-30); Carbon Dioxide* 26 mmol/L (20-32); Glucose* 125 mg/dL (60-115); Phosphorus* 2.5 mg/dL (2.5-4.5); Total Protein* 6.5 g/dL (6.0-8.3)
[2024-11-08 15:50] LABS: C Reactive Protein* 3.8 mg/dL (0.5-1.0)
[2024-11-08 15:59] LABS: Troponin I* 0.01 ng/mL (0.01-0.04)
--- OUTSIDE RECORDS SUMMARY | 2024-11-08 15:59 | XMS_ITS | Clinical Summary ---
Author Organization [facility] Address [address] [place] [id number] Care Team Providers Care Industrial Engineering Technologist Name Role Phone Samir Rascon MD Primary Care Provider Ronit courtney Allergies Active Allergy Reactions Criticality Noted Date Comments Acetaminophen Nausea 03/19/2014 Aspirin Vomiting 03/19/2014 Astemizole 06/15/2021 Other reaction(s): Flushing Benzalkonium Agra Nausea 06/15/2021 Brimonidine 06/15/2021 Other reaction(s): Nephritis Cinacalcet Hcl Dermatitis,Hives 02/16/2021 Idamay Rash 06/15/2021 Cranberry Swelling, lips/tongue High 07/05/2017 Flu Vac [id number](36mo,Up)(Pf) Hives Medium 05/28/2021 Hexylnicotinate Nausea 06/15/2021 Hydrocodone-Acetaminophen Other High 01/22/2018 Other reaction(s): Flushing Pt became itchy around the mouth and then violently threw up after taking 1 [place] post surgery Ketorolac 03/08/2007 Other reaction(s): Renal Failure Other reaction(s): Nephrotoxicity, Renal Failure Latex Itching 03/16/2014 More so if longer exposure per patient Other reaction(s): Itching of skin (finding) Levofloxacin Itching 03/07/2012 Other reaction(s): Itching Lisinopril 03/07/2007 Other reaction(s): Renal Failure Methacholine Chloride 06/15/2021 Other reaction(s): GI Bleeding Morphine Nausea 12/03/2019 Naproxen Unknown 06/29/2007 Other reaction(s): GI Bleeding GI bleeding Oxycodone Vomiting 03/07/2007 Oxycodone [id number] Nausea 06/15/2021 Oxycodone-Aspirin Vomiting 01/11/2022 Pentazocine Nausea,Vomiting 03/19/2014 Propoxyphene Napsylate Nausea 03/19/2014 Propoxyphene-Acetaminophe n Nausea,Rash 01/11/2022 Quinidine Rash,Vomiting 03/19/2014 Other reaction(s): Fever hospitalized Other reaction(s): Rash, Fever, Vomiting, Skin Rash Succinylcholine Chloride Itching 06/15/2021 Sulfa (Sulfonamide Antibiotics) Rash 03/19/2014 Other reaction(s): Rash, Skin Rash Xray Dyes (Olvin) Other High 01/13/2022 Redded skin with sloughing Medications allopurinol (ZYLOPRIM) 100 mg oral tablet Take 100 mg by mouth every Monday, Monday and Monday. Post-dialysis 2 Active amiodarone (CORDARONE) 200 mg oral tablet Take 1 tablet by mouth once daily. 2 Active ELIQUIS 5 mg oral tablet Take 5 mg by mouth Twice a Day. 2 Active cetirizine (ZYRTEC) 10 mg oral tablet Take 10 mg by mouth at bedtime. 0 Active cyclobenzaprine (FLEXERIL) 10 mg oral tablet TAKE ONE TABLET BY MOUTH THREE TIMES A DAY NEEDED FOR MUSCLE SPASM 2 Active cyanocobalamin 1,000 mcg oral tablet Take 1,000 mcg by mouth once daily. Active fluticasone 100 mcg-vilanterol 25 mcg (BREO) 100-25 mcg/dose Inhl inhaler Inhale 1 puff once daily. 0 Active KADY-CHERI 0.8 mg oral Tab TAKE ONE TABLET BY MOUTH EVERY DAY WITH EVENING MEAL 2 Active HYDROmorphone (DILAUDID) 1 mg/mL oral solution Take 0.5 mg by mouth every 4 (four) hours as needed. 1 Active metoclopramide HCl (REGLAN) 10 mg oral tablet TAKE ONE TABLET BY MOUTH EVERY 8 HOURS NEEDED FOR NAUSEA AND VOMITING 2 Active Naphazoline-Phe niramine 0.025-0.3 % Opht drops Instill 1 drop into EACH eye. Active ondansetron (ZOFRAN) 8 mg oral ODT DISSOLVE ONE TABLET BY MOUTH EVERY 6 HOURS NEEDED FOR NAUSEA AND VOMITING 2 Active polyethylene glycol (MIRALAX) 17 gram oral packet Take 17 g by mouth once daily. 1 Active lanthanum (FOSRENOL) 500 mg oral chewable tablet Chew 1,000 mg three times a day with meals. Active lanthanum (FOSRENOL) 500 mg oral chewable tablet Chew 500 mg twice a day. With snacks Active Active Problems Problem Noted Date Diagnosed Date Renal failure 01/13/2022 ESRD (end stage renal disease) Hypertension, renovascular Immunizations Name Administration Dates Next Due Hep B Adult 02/26/2020, 0,01/23/2019,10/24/2018,0 02/2018,08/29/2018,12/27/2017,10/09/2017,09/06/20 17,08/09/2017 Pneumococcal PCV13 05/23/2018 Pneumococcal PPSV23 11/06/2017 Td adult absorbed PF (2 Lf) 10/13/2006 Tdap 10/13/2006 Social History Tobacco Use Types Packs/Day Years Used Date Smoking Tobacco: Former Smokeless Tobacco: Never Alcohol Use Standard Drinks/Week Comments Not Currently 0 (1 standard drink = 0.6 oz pur e alcohol) Comments Unknown Sex and Gender Information Value Date Recorded Sex Assigned at Not on file Legal Sex Female 1:41 PM 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 Gender Identity Not on file Sexual Orientation Not on file Last Filed Vital Signs Vital Sign Reading Time Taken Comments Blood Pressure 107/56 01/14/2022 6:30 PM CDT Pulse 86 01/14/2022 6:30 PM CDT Temperature 36.9 C (98.5 F) 01/14/2022 6:30 PM CDT Respiratory Rate 20 01/14/2022 6:30 PM CDT Oxygen Saturation 99% 01/14/2022 6:30 PM CDT Inhaled Oxygen Concentration - - Weight 133.3 kg (293 lb 14.3 oz) 01/14/2022 6:30 PM CDT Height 157.5 cm (5' 2) 01/13/2022 1:19 PM CDT Body Mass Index 53.75 01/13/2022 1:19 PM CDT Plan of Treatment Health Maintenance Due Date Last Done Comments Colonoscopy 1950 Hepatitis C Screening 1950 Lipid Screening 1950 Osteoporosis Screening 1950 Depression Assessment (PHQ-2) 1952 Yearly Review of HCD 2001 Zoster Vaccine (1 of 2) 2001 RSV Vaccines (1 - Risk 60-74 years 1-dose series) 2011 Adult Tetanus Booster 10/13/2016 10/13/2006, 006 Mammogram Screening 09/29/2017 09/29/2015, 5 COVID-19 Vaccine (2023- season) 2024 Influenza Vaccine (#1) 2024 Pneumococcal 50+ Completed 05/23/2018, 11/06/2017 Medical Devices Implanted Type Area Pulling Machine Operator Device Identifier Shelf Expiration Date Model / Serial / Lot Cath Duraflow 24cm 15.5fr - [id number] Implanted:Qty: 1 on 01/14/2022 by Prosper King APRN, TEXTILE MACHINERY INSTRUCTOR at [facility] [employer] 03/22/2024 [id number] / / [id number] Cath Hemodialysis Schn Xl 20cm - [id number] Implanted:Qty: 1 on 01/13/2022 by Domo Mckeon MD at [facility] Temp Dialysis Catheters [employer] 02/26/2026 [id number] / / [id number] Insurance BC[place] BL[place] MEDIC[place] PART A & B Advance Directives For more information, please contact: [phone] * Full Code (Latest Code Status on File) Date Activated Date Inactivated Comments 01/13/2022 1:52 PM 01/15/2022 3:03 AM Question Answer Comments How was code status determined? Previous Documen tation Care Teams Industrial Engineering Technologist Relationship Specialty Start Date End Date Samir Rascon MD PCP - General 01/04/22
--- OUTSIDE RECORDS SUMMARY | 2024-11-08 16:00 | XMS_ITS | Clinical Summary ---
Author Organization [facility] Address [place], [place] [address] Care Team Providers Care Bucket Wash Operator Name Role Phone [facility] [place] Unavailable Arden Joyner MD Primary Care P rovider Allergies Active Allergy Reactions Criticality Noted Date Comments Aspirin Vomiting 03/19/2014 Astemizole Flushing 06/15/2021 Benzalkonium Gackle Nausea And Vomiting 06/15/2021 Brimonidine Nephritis 06/15/2021 Cinacalcet *Unknown 07/07/2022 Cinacalcet Hcl Hives,Contact Dermatitis Unknown 02/16/2021 Lashmeet Rash 06/15/2021 Iodinated Contrast Media Hives 04/11/2022 Cranberry Edema,Angioedema High 07/05/2017 Propoxyphene-Acetaminop hen Rash,Nausea And Vomiting Flu Vac [id number](36mo,Up)(Pf) Hives Medium 05/28/2021 Hexylnicotinate Nausea And Vomiting 06/15/2021 Hydrocodone-Acetaminoph en Other - Describe In Comment Field,Flushing High 01/22/2018 Pt became itchy around the mouth and then violently threw up after taking 1 [place] post surgery Ketorolac Renal Failure 03/08/2007 Other reaction(s): Nephrotoxicity, Renal Failure Latex Itching 03/16/2014 More so if longer exposure per patient Other reaction(s): Itching of skin (finding) Levofloxacin Itching 03/07/2012 Other reaction(s): Itching Tolerated ciprofloxacin 04/2022 Lisinopril Renal Failure 03/07/2007 Other reaction(s): Renal Failure Methacholine Chloride GI Bleeding 06/15/2021 Morphine Nausea And Vomiting 12/03/2019 Naproxen GI Bleeding,*Unknown - Follow up needed 06/29/2007 GI bleeding Pentazocine Nausea And Vomiting Pentazocine Lactate Nausea And Vomiting,Vomiting 03/19/2014 Oxycodone-Aspirin Vomiting Propoxyphene Napsylate Nausea And Vomiting 03/19/2014 Quinidine Rash,Fever,Vomitin g 03/19/2014 hospitalized Other reaction(s): Rash, Fever, Vomiting, Skin Rash Succinylcholine Chloride Itching 06/15/2021 Sulfa (Sulfonamide Antibiotics) Rash 03/19/2014 Other reaction(s): Rash, Skin Rash Pentazocine Vomiting Unlisted Allergen (Include Detail In Comments) *Unknown - Pt Doesn't Remember 05/28/2021 Medications phenyleph-min oil-petrolatum (PREPARATION H) 0.25-14-74.9 % rectal ointmentIndications: hemorrhoids Insert rectally 2 times daily if needed for Hemorrhoid Pain/Itch. Active cyanocobalamin 1,000 mcg tablet Take 1,000 mcg by mouth once daily. Active ondansetron (ZOFRAN ODT) 8 mg disintegrating tabletIndications:pr evention of post-operative nausea and vomiting DISSOLVE ONE TABLET BY MOUTH EVERY 6 HOURS NEEDED FOR NAUSEA AND VOMITING 30 Tablet 5 Active amiodarone (CORDARONE) 200 mg tabletIndications:At rial fibrillation, unspecified type (HC) Take 1 Tablet (200 mg) by mouth once daily. 90 Tablet 1 Active cyclobenzaprine (FLEXERIL) 10 mg tabletIndications:St rain of right shoulder, initial encounter Take 1 Tablet (10 mg) by mouth 3 times daily if needed for Muscle Spasm. 180 Tablet 3 Active doxercalciferol (HECTOROL IV) Inject 3 mcg intravenous during dialysis. Active albuterol HFA (PRO-AIR; VENTOLIN; PROVENTIL) 90 mcg/actuation inhalerIndications:C hronic obstructive pulmonary disease, unspecified COPD type (HC) Inhale 2 Puffs by mouth every 4 hours if needed for Shortness Of Breath. 0 022 Active oxygen-air delivery systems (HOME OXYGEN)Indications:C hronic obstructive pulmonary disease, unspecified COPD type (HC) 2L during daytime, 5 L during night with bipap 1 Each Active apixaban (ELIQUIS) 2.5 mg tabletIndications:At rial fibrillation, unspecified type (HC) Take 1 Tablet (2.5 mg) by mouth 2 times daily. 60 Tablet Active ferrous sulfate, 65 mg elemental, tabletIndications:Ma crocytic anemia Take 1 Tablet (325 mg) by mouth once daily with a meal. 0 Active fluticasone propion-salmeteroL (Advair Diskus) 100-50 mcg/dose diskus inhaler Inhale 1 Puff by mouth twice daily 12 hours apart. Active pantoprazole (PROTONIX) 40 mg delayed-release tabletIndications:ga stroesophageal reflux disease Take 1 Tablet (40 mg) by mouth two times daily. 60 Tablet Active white petrolatum-mineral oil-lanolin (EUCERIN) topical creamIndications:dry skin Apply topically to affected area(s) two times daily. 113 g Active durable medical equipment (DME)Indications:Aft ercare following surgery of the musculoskeletal system Please fabricate a buckland walker with a cutout in the heel to offload surgical site on the plantar heel. 1 Each 022 Active BiPapIndications:FALGUNI (obstructive sleep apnea) replacement bPAP machine for home use at pressure: I: 15 E: 10 cmw , Heated humidifier x 1 q 5 yr, Humidifier chamber x 1 q 6 mo, Full face mask x1 q 3mos, with cushion x 1 q mo, Heated tubing x 1 q 3 mo, Headgear x 1 q 6 mo, Filters: Disposable x 2 q mo non-disposable filters x1 q 6mo, Length of Need: 99 months, Frequency of use: Daily 1 Each 023 Active cetirizine (ZYRTEC) 5 mg tablet Take 5 mg by mouth once daily. Active b complex-vitamin c-folic acid 1 mg (Triphrocaps) 1 mg capsule Take 1 Capsule by mouth once daily in the evening. Active urea-alpha hydroxy acids (ATRAC-TAIN) 10-4 % creamIndications:hyp erkeratosis Apply topically to affected area(s) once daily. 0 023 Active acetaminophen (TYLENOL EXTRA STRGTH) 500 mg tabletIndications:S/ P hardware removal Take 2 Tablets (1,000 mg) by mouth three times daily. Max acetaminophen dose: 4000mg in 24 hrs. 0 023 Active ciprofloxacin HCl (CIPRO) 500 mg tabletIndications:Ch ronic osteomyelitis (HC),Infection caused by Enterobacter cloacae 500 mg by mouth once daily starting February 16, 2023 90 Tablet 3 023 Active durable medical equipment (DME)Indications:Aft ercare following surgery of the musculoskeletal system Airselect, standard, medium 1 Each 023 Active lanthanum (FOSRENOL) 500 mg chewable tabletIndications:re nal osteodystrophy with hyperphosphatemia Chew 1,500 mg by mouth three times daily with meals. Ouptatient pharmacy: do not fill- patient gets this through dialysis Active lanthanum (FOSRENOL) 500 mg chewable tablet Chew 500 mg by mouth each time if needed (hyperphosphatemia , take with norvanovasource drink). Ouptatient pharmacy: do not fill- patient gets this through dialysis Active guaiFENesin 400 mg tablet Take 400 mg by mouth every 4 hours if needed for Cough (or congestion). Active lactulose (10 g/15 mL) solution Take 20 g by mouth every 8 hours if needed (constipation). Active allopurinoL (ZYLOPRIM) 100 mg tablet Take 100 mg by mouth every Monday, Monday and Monday. MWF at bedtime Active amoxicillin-clavulan ate (AUGMENTIN) 500-125 mg tablet Take 1 Tablet by mouth once daily. Active fluticasone (50 mcg per actuation) nasal solution (FLONASE) Inhale 2 Sprays into affected nostril(s) once daily. Active polyethylene glycol (Miralax) 17 g per packet packet Mix 1 Packet in liquid then take by mouth two times daily. Active pimecrolimus (ELIDEL) 1 % cream Apply topically to affected area(s) two times daily. Active albuterol 0.083% (2.5 mg/3 mL) neb solution Inhale 2.5 mg via a nebulizer every 4 hours if needed. Active diphenhydrAMINE (BENADRYL) 25 mg tablet Take 25 mg by mouth every 4 hours if needed. Active predniSONE (DELTASONE) 10 mg tabletIndications:Ea r pain, left Take 1 Tablet (10 mg) by mouth once daily with a meal. 5 Tablet 09/06/20 24 3:52 PM TRUST VAULT CUSTODIAN 024 Active Active Problems Problem Noted Date Diagnosed Date Need for vaccination 10/03/2024 SBO (small bowel obstruction) 06/12/2024 S/P SORAYA-BSO 06/12/2024 Lip dryness 01/18/2024 COVID-19 11/11/2023 COVID-19 with comorbid diabetes mellitus 024 Need for vaccination 11/11/2023 S/P hardware removal 07/06/2023 Blood loss anemia 07/06/2023 Chronic osteomyelitis of right tibia with draini ng sinus 07/05/2023 Anemia in ESRD (end-stage renal disease) 023 Pyogenic inflammation of bone 07/05/2023 S/P Preparation insertion of intramedullary drug delivery device with cement and antibiotics 04/07/2023 Chronic infection 01/03/2023 Overview (01/03/2023): R lower leg Infection caused by Enterobacter cloacae 023 Allergy to multiple antibiotics 01/03/2023 Cellulitis and abscess of right leg 01/02/2023 Chronic respiratory failure with hypoxia 023 FALGUNI treated with BiPAP 01/02/2023 Closed fracture of distal end of right tibia wit h nonunion 01/02/2023 Chronic anticoagulation 01/02/2023 Allergy to multiple antibiotics 05/06/2022 Overview (05/06/2022): Listed allergies to levofloxacin & TMP-S Infection caused by Enterobacter cloacae 022 Non-healing surgical wound 05/05/2022 Hyponatremia 04/13/2022 Hyperkalemia 04/13/2022 Macrocytic anemia 04/13/2022 Chronic obstructive pulmonary disease 03/16/2022 Arthritis of right shoulder region 03/03/2021 Overview (03/03/2021): 2020: right Shoulder GH osteoarthritis and large RC Tears on MRI. February 2021: right Shoulder GH Shoulder injection by Dr. Lazo under ultrasound guidance. Cellulitis of left lower extremity 04/28/2020 Wound of left leg, subsequent encounter 01/29/20 20 ESRD on hemodialysis 01/29/2020 Closed fracture of neck of left fibula 0 Palliative care by specialist 12/12/2019 Secondary hyperparathyroidism of renal origin Closed nondisplaced fracture of proximal phalanx of lesser toe of right foot 11/21/2019 Arteriovenous fistula thrombosis 07/26/2019 Oropharyngeal dysphagia 06/10/2019 Pill rolling 06/10/2019 Tyloma 06/10/2019 Adrenal nodule 05/03/2019 Overview (11/21/2019): 1) A large 8.0 x 7.3 cm left adrenal mass, predominantly fat filled This is stable in size compared to imaging from July 2017 2) A 3.2 x 3.0cm right adrenal nodule (in Oct 2019). Increased from 3.1 cmx2.6 cm in March 2019. Increased in size from 1.9 cm on the prior study from July 2017. I doubt these adrenal masses/nodules are clinically significant Note: Plasma mets = normal in 2019. No Oct 2019 as well. ACTH stim normal in Nov 2018 and Jun 2019. 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 Anemia 05/02/2019 Morbid obesity with BMI of 60.0-69.9, adult 03/24 FALGUNI 04/2004 AHI/RDI:12 Patient also is on oxygen 11/16/2017 Chronic constipation 10/27/2017 Stercoral ulcer of rectum 10/27/2017 Overview (10/27/2017): Due to chronic constipation Causing GI bleeding and anemia July 2017 ESRD (end stage renal disease) on dialysis 08/14 Chronic acquired lymphedema 06/30/2017 Morbid obesity with BMI of 50.0-59.9, adult 05/25 Restrictive lung disease 08/23/2016 Overview (08/23/2016): Severe per art professor(08/09/16) FALGUNI 04/2004 AHI-12 06/11/2015 Vitamin D deficiency 03/11/2015 ACP (advance care planning) 03/12/2014 Overview (12/12/2019): Patient has identified Health Care Agent(s): Yes Add Health Care Agents: Yes Health Care Agent(s): Primary Health Care Agent: Bill Relationship: Spouse Secondary Health Care Agent: Jonathon Relationship: Son Phone: Third Health Care Agent: Fanny Relationship: Granddaughter Phone: Guardian: Relationship: Phone: Patient has Advance Care Plan Documents (Health Care Directive, POLST): Yes, HCD on file Patient has identified Specific Treatment Preferences: Yes Specific Treatment Preferences: a.) Code Status: CPR/Attempt Resuscitation Moderate persistent asthma without complication 01/28/2014 Lung density on x-ray 01/28/2014 Gout 03/15/2013 Atrial flutter 08/01/2009 Overview (08/01/2009): YUNIEL and cardioversion 07/31/2009 Family hx of melanoma 06/07/2008 Hypertension (HTN) Asthma, Obstructive sleep apnea syndrome Paroxysmal Atrial Fibrillation and Flutter Overview (07/31/2009): -1st episode 1996 -recurrence 2006 - sotalol regimen -recurrence 07/27/2009 s/p total hysterectomy - spontaneous conversion to NSR same day, but return to atrial flutter with 2:1 conduction Type 2 diabetes mellitus wit h kidney complication, without long-term current use of insulin Seasonal allergic rhinitis due to pollen Pulmonary hypertension Overview (07/31/2009): -moderate on 02/27/07 echo Inflammatory Polyarthropathy, Overview (08/23/2016): (+) rheumatoid factor but probably not RA Many joints - hands, neck and back Bilateral Knee Osteoarthritis Overview (08/23/2016): Left is worse than Right Grade 1 Endometrial Cancer. SORAYA with BSO and bilat complete pelvic and periaortic LN resection 07/22/2009 Overview (08/15/2009): Nonmetastatic uterine cancer Shortness of breath Overview (07/31/2009): -associated with afib/flutter RVR 150's Small Bowel Obstruction 07/28/2009 Overview (07/31/2009): -post op SORAYA/BSO/PPALND ESRD (end stage renal disease) Hypotension Dependent edema Anemia of chronic renal failure Open fracture of distal end of fibula and tibia, right, type III, initial encounter At risk for infection Resolved Problems Problem Noted Date Diagnosed Date Resolved Date Type 2 diabetes mellitus wit hout complication, without long-term current use of insulin 03/16/2022 03/16/2022 Severe sepsis 08/03/2020 07/07/2022 Cellulitis 08/03/2020 07/07/2022 Hyperkalemia 04/28/2020 07/07/2022 Left leg cellulitis 01/29/2020 07/07/20 22 Chronic respiratory failure with hypoxia 01/29/2020 03/16/2022 Traumatic hematoma of lower leg with infection, left, subsequent encounter 12/13/2019 Pain of left lower extremity 12/12/2019 01/29/2020 Cellulitis 07/31/2019 01/29/2020 BRBPR (bright red blood per rectum) 07/26/2019 01/29/2020 NIXON (acute kidney injury) 06/10/2019 History of gout 05/02/2019 07/07/2022 Lightheadedness 05/02/2019 01/29/2020 Gram-positive cocci bacteremia 04/17/2019 01/29/2020 Acute hyperkalemia 12/14/2018 0 Acute blood loss anemia 08/14/2017 04/0 05/2020 Abdominal pain 08/14/2017 01/29/2020 Acute respiratory failure with hypoxia 06/30/2017 01/29/2020 Acute respiratory failure wi th hypoxia and hypercapnia 06/30/2017 01/29/2020 Septic shock 06/22/2017 01/29/2020 Bilateral lower extremity edema 08/23/2016 08/23/2016 Lymphedema 08/23/2016 10/26/2017 Cellulitis 03/04/2015 01/29/2020 MSSA (methicillin susceptibl e Staphylococcus aureus) pneumonia 03/20/2014 07/07/2022 Cough 03/13/2014 01/29/2020 Dyspnea 03/13/2014 01/29/2020 C. difficile diarrhea 08/01/20092013 Hypokalemia 07/29/2009 03/13/2014 Anemia, unspecified 03/08/2007 07/21/20 09 Cellulitis and abscess of leg, except foot 03/08/2007 07/21/2009 Overview (03/08/2007): BILAT Class 3 obesity due to exces s calories with serious comorbidity in adult 01/29/2020 Cellulitis and abscess of unspecified site 07/21/2009 Overview (02/22/2007): recurrent Generalized edema 01/29/2020 History of Gout 03/15/2013 Chronic Renal Insufficiency 01/29/2020 Diarrhea 07/29/2009 8 Overview (07/31/2009): -associated with SBO Adrenal mass, left 0 ESRD (end stage renal disease) 07/07/2022 Encounters Date Type Department Care Team Description 10/03/2024 11:00 AM TRUST VAULT CUSTODIAN Office Visit [facility] [address] [facility] [address] [place], [place] [id number] Alexander Kerr MD Follow Up 10/03/2024 Travel 09/06/2024 3:00 PM TRUST VAULT CUSTODIAN Office Visit [facility] [address] [place] [address] Wili Butler PA Ear Pain/problem (Bilateral ear pain and hearing muffled for last few days. ) 09/06/2024 Travel 08/15/2024 Orders Only [facility] Scanner 1 scan: (1-Ord) TAREEN DERMATOLOGY, MOHS SURGERY, 08/15/2024 from Last 3 Months Immunizations Name Administration Dates Next Due Hepatitis B (Adult) 02/26/2020, 0,01/23/2019,2018,09/26/2018,08/29/2018,12/27/2017,1 12/10/2016,09/06/2017,08/09/2017 Influenza, IIV3 (Age >=3 years) 10/13/2006,08/25 Pneumococcal Conj 20-valent (Prevnar 20) 06/18/2024 Pneumococcal Poly,23-Valent (Pneumovax) 11/06/2017 Pneumococcal conj 13-Valent (Prevnar 13) 05/23/2018 Td (Age >=7 Years) 10/13/2006 Td, Preservative Free (age > = 7 Years) 10/13/2006 Tdap 04/12/2022,10/13/2006 Family History Medical History Relation Name Comments Heart Disease Brother 4 Cancer Brother 5 melanoma Cancer Father melanoma Hypertension Father Other Father O2 dependent CO PD Cancer-breast Maternal Aunt Other Mother O2 dependant CO PD Cancer-breast Paternal Aunt Relation Name Status Comments Brother 1 Alive Brother 2 Alive Brother 3 Brother 4 Brother 5 Daughter Alive Father Alive Maternal Aunt Maternal Grandfather Maternal Grandmother Mother Alive Paternal Aunt Paternal Grandfather Paternal Grandmother Son Alive Social History Tobacco Use Types Packs/Day Years Used Date Smoking Tobacco: Former Cigarettes 2 9 1 969 - 10/23/1977 Smokeless Tobacco: Never Tobacco Cessation:Counseling Given: Not Answered Alcohol Use Standard Drinks/Week Comments No 0 (1 standard drink = 0.6 oz pur e alcohol) [facility] Utilities Answer Date Recorded Do you have trouble paying f or utilities (for example, heat, electricity, water, phone)? Yes 06/13/2024 PHQ-2 Answer Date Recorded PHQ-2 TOTAL SCORE 0 03/16/2022 Social Connections Answer Date Recorded Do you often feel lonely or isolated from those around you? 0 06/13/2024 Financial Resource Strain Answer Date R ecorded Difficulty of Paying Living Expenses 3 06/13/2024 Difficulty of Paying Living Expenses Not on file 06/13/2024 Food Insecurity Answer Date Recorded Do you worry your food will run out before you are able to buy more? 1 06/13/2024 Transportation Needs Answer Date Record ed Does lack of transportation keep you from medica l appointments? 1 06/13/2024 Does lack of transportation keep you from work, meetings or getting things that you need? 1 06/13/2024 Housing Stability Answer Date Recorded What is your housing situation today? 1 06/13/2024 Interpersonal Safety Answer Date Record ed Are you being hit, kicked, p ushed or yelled at (see row info)? 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 Not on file Not on file Not on file Obstetrics History Para Term AB IAB SAB Ectopic Multiple Livin g Live Births 5 2 2 3 3 1 Date Outcome GA Total Labor Labor/2nd/3rd Weight Sex Type Anes PTL Elizabeth A1 A5 Name Clin Term Term SAB SAB SAB Last Filed Vital Signs Vital Sign Reading Time Taken Comments Blood Pressure 130/68 10/03/2024 11:10 AM TRUST VAULT CUSTODIAN Pulse 100 10/03/2024 11:10 AM TRUST VAULT CUSTODIAN Temperature 36.1 C (97 F) 09/06/2024 3:11 PM TRUST VAULT CUSTODIAN Respiratory Rate 18 10/03/2024 11:10 AM TRUST VAULT CUSTODIAN Oxygen Saturation 97% 10/03/2024 11:10 AM TRUST VAULT CUSTODIAN Inhaled Oxygen Concentration - - Weight 105.2 kg (232 lb) 10/03/2024 11:10 AM TRUST VAULT CUSTODIAN Height 157.5 cm (5' 2) 06/11/2024 10:58 PM CDT Body Mass Index 42.43 06/11/2024 10:58 PM CDT Plan of Treatment Upcoming Encounters Date Type Department Care Team (Late st Contact Info) Description 01/08/2025 3:30 PM CDT Office Visit [facility] [address] [place] [phone] Kenji Gregorio MD [address] [facility] [address] [place] [address] 01/30/2025 11:00 AM CDT Office Visit [facility] [address] [facility] [address] [place] [address] Alexander Kerr MD [address] [id number] Health Maintenance Due Date Last Done Comments Zoster (shingles) series for age 50+ (1 of 2) 2001 RSV vaccine for adults or (1 - Risk 60-74 years 1-dose series) 2011 Fecal testing non-DNA (FIT,FOBT,iFOBT) for age 45-75 05/08/2016 05/08/2015 DEXA/DXA scan for age 65+ 2016 Medicare Wellness for age 65+ 2016 Mammogram for age 45-75 09/29/2016 09/29/20 15, 09/18/2015, 11/22/2012 BMI (ht and wt on same day) for age 18+ 03/16/2023 03/16/2022, 04/10/2020, 12/27/2019, Additional history exists Depression screening for age 12+ 03/16/2023 03/16/2022, 03/14/2019, 03/12/2019, Additional history exists Lipids for age 45-75 03/12/2024 03/12/2019, 06/29/2016, 09/18/2015, Additional history exists COVID-19 vaccine series ( season) 2024 Influenza for age 65+ 06/23/2024 10/13/2006, 003 Tetanus booster 04/12/2032 04/12/2022, 09/23, 10/13/2006, Additional history exists Hepatitis C screening for ag e 18-79 Completed 08/05/2020 Tdap Completed 04/12/2022, 10/13/2006 Pneumococcal series for age 50+ Completed 06/18/2024, 05/23/2018, 11/06/2017 Goals Goal Patient Goal Type Associated Problems Recent Progress Patient-Stated? Author BLOOD PRESSURE - MAINTAINS BP less than 140/90 Blood Pressure No Samir Rascon MD Medical Devices Implanted Type Area Pipe Fitter Supervisor Device Identifier Shelf Expiration Date Model / Serial / Lot Screw Sm Joint 4x44mm Axsos Lock - [id number] Implanted:Qty: 1 on 04/12/2022 by Bairon Alejandre MD at [facility] Right: Ankle [employer] [id number] / / Screw Sm Joint 4x50mm Axsos Lock - [id number] Implanted:Qty: 1 on 04/12/2022 by Bairon Alejandre MD at [facility] Right: Ankle [employer] [id number] / / Plate Tib Rt 201mm 12hole Axsos3 Distal Med Implanted:Qty: 1 on 04/12/2022 by Bairon Alejandre MD at [facility] Right: Ankle [id number] / / Description:Plate Tib Rt 201 mm 12Hole Axsos3 Distal Med Screw Sm Joint 3.5x26mm Axsos Valentin Titnm - [id number] Implanted:Qty: 1 on 04/12/2022 by Bairon Alejandre MD at [facility] Right: Ankle [employer] [id number] / / Screw Sm Joint 3.5x28mm Axsos Valentin Titnm - [id number] Implanted:Qty: 1 on 04/12/2022 by Bairon Alejandre MD at [facility] Right: Ankle [employer] [id number] / / Screw Sm Joint 3.5x90mm Axsos Valentin Titnm Implanted:Qty: 1 on 04/12/2022 by Bairon Alejandre MD at [facility] Right: Ankle [id number] / / Description:SCREW SM JOINT 3 .5X90MM AXSOS VALENTIN TITNM Screw Sm Joint 4x26mm Axsos Lock - [id number] Implanted:Qty: 1 on 04/12/2022 by Bairon Alejandre MD at [facility] Right: Ankle [employer] [id number] / / Screw Sm Joint 4x30mm Axsos Lock - [id number] Implanted:Qty: 1 on 04/12/2022 by Bairon Alejandre MD at [facility] Right: Ankle [employer] [id number] / / Screw Sm Joint 4x36mm Axsos Lock - [id number] Implanted:Qty: 1 on 04/12/2022 by Bairon Alejandre MD at [facility] Right: Ankle [employer] [id number] / / Screw Sm Joint 5x35mm T2 Full Thrd Lock - [id number] Implanted:Qty: 1 on 05/04/2022 by Ab Nieto MD at [facility] Right: Tibia [employer] 02/19/2027 1896-5035S / / [id number] Screw Sm Joint 5x55mm T2 Full Thrd Lock - [id number] Implanted:Qty: 1 on 05/04/2022 by Ab Nieto MD at [facility] Right: Tibia [employer] 03/22/2026 1896-5055S / / [id number] Screw Sm Joint 5x37.5mm T2 Full Thrd Lock - [id number] Implanted:Qty: 1 on 05/04/2022 by Ab Nieto MD at [facility] Right: Tibia [employer] 05/22/2026 1896-5037S / / [id number] Screw Sm Joint 5x35mm T2 Full Thrd Lock - [id number] Implanted:Qty: 1 on 05/04/2022 by Ab Nieto MD at [facility] Right: Tibia [employer] 02/19/2027 1896-5035S / / [id number] Nail Ankle 11 X 300 Implanted:Qty: 1 on 05/04/2022 by Ab Nieto MD at [facility] Right: Tibia 12/20/2026 1819-1130S / / [id number] Description:NAIL ANKLE 11 X 300 Screw Compression T2 Ankle - [id number] Implanted:Qty: 1 on 05/04/2022 by Ab Nieto MD at [facility] Right: Tibia [employer] 12/20/2026 [id number] / / [id number] Tissue Matrix 3cc Flowable Bovine - [id number] Implanted:Qty: 1 on 07/12/2022 by Ab Nieto MD at [facility] [employer] 08/22/2023 [id number] / / [id number] Drsg Biological 500mg Micromatrix - [id number] Implanted:Qty: 1 on 07/12/2022 by Ab Nieto MD at [facility] Kextila [employer]za Farzana 10/22/2023 [id number] / [id number] / Cmnt Bone 40g Simplex P Non Atb Mv - [id number] Implanted:Qty: 1 on 01/04/2023 by Bairon Alejandre MD at [facility] Right: Tibia [employer] 03/22/2025 [id number] / / [id number] Karis 2 Bone Harvesting Kit 520mm Sterile Implanted:Qty: 1 on 07/05/2023 by Ab Nieto MD at [facility] Right: Tibia 09/21/2023 03.404.000 S / / [id number] Description:CHECKED DF 2.5mm Reaming Josias With Ball Tip/ 950mm Sterile Implanted:Qty: 1 on 07/05/2023 by Ab Nieto MD at [facility] Right: Tibia 12/20/2029 [id number] / / [id number] Description:CHECKED DF 14.5mm Reamer Head For Karis 2 Implanted:Qty: 1 on 07/05/2023 by Ab Nieto MD at [facility] Right: Tibia 10/22/2032 [id number] S / / [id number] Description:CHECKED DF 15.5mm Reamer Head For Karis 2 Implanted:Qty: 1 on 07/05/2023 by Ab Nieto MD at [facility] Right: Tibia 09/21/2032 03.404.027 S / / [id number] Description:CHECKED DF Cmnt Bone 40g Simplex P Non Atb Mv - [id number] Implanted:Qty: 1 on 07/10/2023 by Ab Nieto MD at [facility] Right: Leg [employer] 09/21/2025 [id number] / / [id number] Description:NO STICKER Panta Nail 10 Mm X 240 Mm Implanted:Qty: 1 on 07/10/2023 by Ab Nieto MD at [facility] Right: Leg MCDONALD-1010-1 [id number] / / Description: 07/11/23 Panta 5 Mm Fully Threaded Size 28 Implanted:Qty: 1 on 07/10/2023 by Ab Nieto MD at [facility] Right: Leg MCDONALD-1010-1 428NS / / Description: 07/11/23 Panta 5 Mm Fully Threaded Size 30 Implanted:Qty: 1 on 07/10/2023 by Ab Nieto MD at [facility] Right: Leg MCDONALD-010-14 30NS / / Description: 07/11/23 Panta 5 Mm Fully Threaded Size 54 Implanted:Qty: 1 on 07/10/2023 by Ab Nieto MD at [facility] Right: Leg MCDONALD-1010-1 454NS / / Description: 07/11/23 Bone Matrix 18cc Cerament Synth - [id number] Implanted:Qty: 1 on 07/10/2023 by Ab Nieto MD at [facility] Right: Leg [employer] 01/13/2026 [id number] / / [id number] Description:CHECKED Panta 5 Mm Partially Threaded Size 65 Implanted:Qty: 2 on 07/10/2023 by Ab Nieto MD at [facility] Right: Leg MCDONALD-1010-2 [id number] / / Description: 07/11/23 Explanted Type Area Pipe Fitter Supervisor Device Identifier Shelf Expiration Date Model / Serial / Lot K-Wire 9 Plain 0.062 Explanted:Qty: 4 on 04/12/2022 by Bairon Alejandre MD at [facility] Right: Ankle [id number] / / Description:K-WIRE 9 PLAIN 0.062 K-Wire [place] 10pk - [id number] Explanted:Qty: 3 on 04/12/2022 by Bairon Alejandre MD at [facility] Right: Ankle [employer] [id number] / / Explant Explanted:Qty: 1 on 05/04/2022 by Ab Nieto MD at [facility] Right: Ankle Description:PLATE, 7 SCREWS Explant Explanted:Qty: 1 on 01/04/2023 at [facility] Right: Tibia Description:4 SCREWS, 1 JOSIAS Procedures Procedure Name Priority Date/Time Associated Diagnosis Comments SCAN-OPERATIVE/PROC EDURE REPORT 08/15/2024 12:00 AM CDT EXPOSURE (BBF) ANTI HCV STAT 08/05/2020 4:45 PM CDT LIPID PANEL W REFLEX MEASURED LDL Routine 03/12/2019 3:50 PM CDT Type 2 diabetes mellitus with stage 3 chronic kidney disease, without long-term current use of insulin (HC) XR FFDM MAMMO UNI ADDL VIEWS RIGHT (IA) Routine 09/29/2015 2:34 PM TRUST VAULT CUSTODIAN Abnormal mammogram OCCULT BLOOD IFOBT STOOL Routine 05/08/2015 12:01 PM CDT Screening from Last 3 Months or Most Recently Relevant to Health Maintenance Results * SCAN-OPERATIVE/PROCEDURE REPORT (08/15/2024 12:00 AM CDT) us Scanner OTHER Final Result * Patient Source ANTI HCV (08/05/2020 4:45 PM CDT) HEPATITIS C ANTIBODY Non-React luis Non-React luis 08/06/2020 12:46 PM CDT [facility] [employer] [facility] Comment:Antibodies to HCV no t detected; does not exclude the possibility of exposure to HCV. Blood BLOOD SPECIMEN / Unknown Line/Port / Unknown 08/05/2020 4:45 PM CDT 08/05/2020 4:53 PM CDT us Ne Berg MD SEND OUTS Final Result Performing Organization Address City/[facility]/ZIP Co de Phone Number [facility] [address] [place] [address], [place] * (ABNORMAL) LIPID PANEL W REFLEX MEASURED LDL (03/12/2019 3:50 PM CDT) CHOLESTEROL,TOTAL 217(H) 100 - 199 mg/dL 03/12/2019 11:09 PM CDT [facility] TRIGLYCERIDES 221(H) <150 mg/dL 03/12/2019 11:09 PM CDT [facility] HDL CHOLESTEROL 51 >40 mg/dL 9 11:09 PM CDT [facility] NON-HDL CHOLESTEROL 166(H) <145 mg/dl 03/12/2019 11:09 PM CDT [facility] CHOL/HDL RATIO 4.25 <4.50 03/12/2019 11:09 PM CDT [facility] LDL CHOLESTEROL 122 <=130 mg/dL 03/12/2019 11:09 PM CDT [facility] PROVIDER ORDERED STATUS RANDOM 03/12/2019 11:09 PM CDT [facility] Blood BLOOD SPECIMEN / Unknown Butterfly / Unknown 03/12/2019 3:50 PM CDT 03/12/2019 3:50 PM CDT us Samir Rascon MD CHEMISTRY Final Re sult [facility] [address] [place] [address], [place] * XR FFDM MAMMO UNI ADDL VIEWS RIGHT (09/29/2015 2:34 PM TRUST VAULT CUSTODIAN) Anatomical Region Laterality Modality BREASTS, Breast Right Right Mammograph y Impressions 09/29/2015 3:10 PM TRUST VAULT CUSTODIAN BI-RADS Category 4: Suspicious RECOMMENDATIONS: Stereotactic biopsy. NOTE: I discussed today's imaging findings with the patient. The biopsy will be scheduled through the clinic child care nurse prior to the patient leaving the clinic today. Zachary Travis D.O. Diagnostic Radiologist [email or web address] HA/denzel / Narrative 09/29/2015 3:10 PM TRUST VAULT CUSTODIAN ADDITIONAL VIEWS OF THE RIGHT BREAST, 09/29/2015 CLINICAL HISTORY: Further evaluation for a new cluster of microcalcifications in the RIGHT breast on screening mammogram dated 09/18/2015. TECHNIQUE: Magnification CC, magnification MLO and magnification true lateral views. FINDINGS: The breast composition is fatty. The examination demonstrates a cluster of indeterminate microcalcifications at the mid 3-4 o'clock position of the RIGHT breast. The cluster measures approximately 7 mm in diameter. us Samir Rascon MD MAMMO Final Re sult * (ABNORMAL) OCCULT BLOOD IFOBT STOOL (05/08/2015 12:01 PM CDT) STOOL BLOOD ,IFOBT Positive( A) Negative, Invalid 05/08/2015 12:11 PM CDT [facility] Stool specimen (specimen) STOOL SPECIMEN / Unknown Non-Blood / Unknown 05/08/2015 12:01 PM CDT 05/08/2015 12:02 PM CDT [facility] LABOR[facility] Final R esult [facility] [address] [place] [address], from Last 3 Months or Most Recently Relevant to Health Maintenance Insurance [facility] MEDICARE PART A HB ONLY MEDICARE PART B HB ONLY BLUE [facility] BLUE [place] BLUE HB ONLY BLUE [place] [id number] MEDICARE PPS Advance Directives Documents on File Type Date Recorded Patient Lap Winder Expl anation Healthcare Directive 02/13/2019 1:55 PM * Full Code (Latest Code Status on File) Date Activated Date Inactivated Comments 06/12/2024 4:40 PM 06/15/2024 1:52 PM Question Answer Comments Code Status Discussion: Reviewed Preferences * Full Code Date Activated Date Inactivated Comments 02/26/2024 12:52 PM 02/27/2024 2:12 AM Question Answer Comments Code Status Discussion: Unable to Assess Preferences, Provider to review later * Full Code Date Activated Date Inactivated Comments 02/26/2024 12:51 PM 02/26/2024 12:52 PM Question Answer Comments Code Status Discussion: Unable to Assess Preferences, Provider to review later * Full Code Date Activated Date Inactivated Comments 11/10/2023 11:57 PM 11/13/2023 8:20 PM Question Answer Comments Code Status Discussion: Reviewed Preferences * Full Code Date Activated Date Inactivated Comments 07/05/2023 6:36 AM 07/13/2023 12:08 PM Question Answer Comments Code Status Discussion: Other Not disc ussed Care Teams Bucket Wash Operator Relationship Specialty Start Date End Date Arden Joyner MD [address] [place] [address] PCP - General Family Practice 06/12/24 [facility] 05/17/19
[2024-11-08 16:01] LABS: NT Pro B Type NatriureticPept* 16300 pg/mL
--- OUTSIDE RECORDS SUMMARY | 2024-11-08 16:01 | XMS_ITS | Clinical Summary ---
Author Organization [facility] Address [address] [place] [address] Care Team Providers Care Assembly Line Worker Name Role Phone Unavailable Primary Care Provider Unavailabl e Source Comments Patient records contain information from all sites at [facility]. For routine questions regarding patient records, call [phone] during business hours, M-F 8:00 AM - 5:00 PM Central Time. Record requests for emergency care only can be directed to [phone] at any time.[facility] Allergies Active Allergy Reactions Criticality Noted Date Comments Astemizole Rash 06/15/2021 Other reaction(s): Flushing Benzalkonium [place] Nausea And Vomiting,Nausea Only 06/15/2021 Brimonidine Acute Interstitial Nephritis,Other (see comments) High 06/15/2021 Other reaction(s): Nephritis Cinacalcet Hives only, no other systemic symptoms,Hives (Reselect Reaction) 02/16/2021 Billings Rash 06/15/2021 Cranberry Angioedema,Edema (Reselect Reaction),Edema, suggestive of allergic reaction, i.e., lip, tongue, or throat swelling,Rash High 08/13/2010 Flu Vac [id number](36mo,Up)(Pf) Hives (Reselect Reaction) Medium 07/25/2024 Hexylnicotinate Nausea And Vomiting,Nausea Only 06/15/2021 Hydrocodone-Acetaminoph en Rash High 01/22/2018 Pt became itchy around the mouth and then violently threw up after taking 1 Dorothy post surgery Other reaction(s): Flushing Pt became itchy around the mouth and then violently threw up after taking 1 Dorothy post surgery Iodinated Contrast Media Hives with other symptoms including blisters,Itching High 01/13/2022 07-18-[address] contrast reactions in the past with hives and blister on upper half of body and severe itching. Redded skin with sloughing Ketorolac Renal Failure High 03/08/2007 Other reaction(s): Nephrotoxicity, Renal Failure Other reaction(s): Renal Failure Other reaction(s): Nephrotoxicity, Renal Failure Latex Itching 03/16/2014 More so if longer exposure per patient Other reaction(s): Itching of skin (finding) Levofloxacin Rash,Itching 08/13/2010 Other reaction(s): Itching Tolerated ciprofloxacin 04/2022 Other reaction(s): Itching Lisinopril Renal Failure High 03/07/2007 Other reaction(s): Renal Failure Methacholine GI bleeding 06/15/2021 Other reaction(s): GI Bleeding Morphine GI intolerance,Nausea And Vomiting,Nausea Only 11/08/2012 Pentazocine Nausea And Vomiting,Nausea Only,GI intolerance 08/13/2010 Percodan Juana Nausea And Vomiting,GI intolerance 08/13/2010 Propoxyphene Nausea And Vomiting,Nausea Only,GI intolerance 03/19/2014 Propoxyphene N-Acetaminophen GI intolerance 07/25/2024 Quinidine Other (see comments),Rash,GI intolerance 08/13/2010 hospitalized Other reaction(s): Rash, Fever, Vomiting, Skin Rash Other reaction(s): Fever hospitalized Other reaction(s): Rash, Fever, Vomiting, Skin Rash Succinylcholine Itching 06/15/2021 Sulfa (Sulfonamide Antibiotics) Rash,Other (see comments) 11/08/2012 Other reaction(s): Rash, Skin Rash Medications acetaminophen (TylenoL) 500 mg tablet Take 1,000 mg by mouth 3 (three) times a day. Active allopurinoL (Zyloprim) 100 mg tablet Take 100 mg by mouth 3 (three) times a week. At bedtime on Mondays, Wednesdays and Fridays Active amiodarone (Pacerone) 200 mg tablet Take 200 mg by mouth at bedtime. Active amoxicillin-pot clavulanate (Augmentin) 500-125 mg per tablet Take 1 tablet by mouth every evening. Active apixaban (Eliquis) 2.5 mg tablet Take 2.5 mg by mouth 2 (two) times a day. Active cetirizine (ZyrTEC) 5 mg tablet Take 5 mg by mouth daily. Active ciprofloxacin (Cipro) 500 mg tablet Take 500 mg by mouth daily before morning meal. Active cyanocobalamin (Vitamin B-12) 1,000 mcg tablet Take 1,000 mcg by mouth daily. Active diphenhydrAMINE (BenadryL) 25 mg tablet Take 25 mg by mouth every 4 (four) hours as needed for itching. Active ferrous sulfate 325 mg (65 mg iron) DR tablet Take 65 mg of iron by mouth every evening. Active fluticasone propionate (Flonase) 50 mcg/actuation nasal spray Administer 2 sprays into each nostril daily. Active guaiFENesin 400 mg tablet Take 400 mg by mouth every 4 (four) hours as needed for cough. Active lanthanum (FosrenoL) 500 mg chewable tablet Chew 1,500 mg 3 (three) times a day with meals. Active methocarbamoL (Robaxin) 500 mg tablet Take 1,000 mg by mouth 3 (three) times a day as needed for muscle spasms. Active polyethylene glycol (Miralax) 17 gram powder packet Take 17 g by mouth 2 (two) times a day. Dissolve each 17 g dose in 240 mLs (8 ounces) of beverage. Active ondansetron (Zofran) 8 mg tablet Take 8 mg by mouth every 6 (six) hours as needed for nausea or vomiting. Active pantoprazole (Protonix) 40 mg EC tablet Take 40 mg by mouth 2 (two) times a day before morning and evening meals. Active multivitamin renal failure (Dialyvite) 100-1 mg tablet Take 1 tablet by mouth daily with evening meal. Active oxyCODONE (Roxicodone) 5 mg immediate release tabletIndication s:Acute Pain Exception Take 2 tablets (10 mg total) by mouth every 4 (four) hours as needed for pain Indication: Acute Pain Exception. 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 Overview (07/18/2024): (+) rheumatoid factor but probably not RA Many joints - hands, neck and back Asthma 07/18/2024 Atrial Fibrillation Unspecified 07/18/2024 Overview (07/18/2024): -1st episode 1996 -recurrence 2006 - sotalol regimen -recurrence 07/27/2009 s/p total hysterectomy - spontaneous conversion to NSR same day, but return to atrial flutter with 2:1 conduction Diabetes Mellitus Type 2 Wit h Other Diabetic Kidney Complication 07/18/2024 Hypertension Essential Primary 07/18/2024 Hypertension Pulmonary 07/18/2024 Overview (07/18/2024): -moderate on 02/27/07 echo Malignant Neoplasm Of Endometrium 07/18/2024 Overview (07/18/2024): Nonmetastatic uterine cancer Dialysis Dependent 07/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 Morbid Obesity 07/02/2024 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/12 Anemia 07/05/2023 Chronic Respiratory Failure With Hypoxia 023 Chronic Obstructive Pulmonary Disease 03/16/2022 Hypertensive Chronic Kidney Disease With Stage 1 Through Stage 4 Chronic Kidney Disease, Or Unspecified Chronic Kidney Disease 11/22/2019 Hyperparathyroidism Renal Secondary 11/22/2019 Apnea Sleep Obstructive 06/11/2015 Gout 03/15/2013 Flutter Atrial 08/01/2009 Overview (07/18/2024): YUNIEL and cardioversion 07/31/2009 Encounters Date Type Department Care Team Description 08/27/2024 3:13 PM STAFF AUDITOR - 08/27/2024 7:39 PM STAFF AUDITOR Hospital Encounter Division of singer back tender in [place], [place] [address] [place] [address] Ori Murray M.D., D.M.D. Malignant Neoplasm Of Lip (Primary Dx) from Last 3 Months Social History Tobacco Use Types Packs/Day Years Used Date Smoking Tobacco: Former Smokeless Tobacco: Never Tobacco Cessation:Counseling Given: Not Answered Alcohol Use Standard Drinks/Week Comments Not Currently 0 (1 standard drink = 0.6 oz pur e alcohol) [facility] Utilities Answer Date Recorded In the past 12 months has th e [employer], gas, oil, or water company threatened to shut off services in your home? No 08/24/2024 Humiliation, Afraid, Rape, and Kick questionnair e Answer Date Recorded Within the last year, have y ou been afraid of your partner or ex-partner? No 07/26/2024 Within the last year, have y ou been humiliated or emotionally abused in other ways by your partner or ex-partner? No Within the last year, have y ou been kicked, hit, slapped, or otherwise physically hurt by your partner or ex-partner? No 07/26/2024 Within the last year, have y ou been raped or forced to have any kind of sexual activity by your partner or ex-partner? No 07/26/2024 Exercise Vital Sign Answer Date Recorde d On average, how many days pe r week do you engage in moderate to strenuous exercise (like a brisk walk)? 0 days 08/24/2024 On average, how many minutes do you engage in exercise at this level? 0 min 08/24/2024 Hunger Vital Sign Answer Date Recorded Within the past 12 months, y ou worried that your food would run out before you got the money to buy more. Never true 08/24/20 24 Within the past 12 months, t he food you bought just didn't last and you didn't have money to get more. Never true 08/24/2024 PRAPARE - Transportation Answer Date Re corded In the past 12 months, has l ack of transportation kept you from medical appointments or from getting medications? No 11/2023 In the past 12 months, has l ack of transportation kept you from meetings, work, or from getting things needed for daily living? No 08/24/2024 Nutrition Answer Date Recorded On average, how many serving s of fruits and vegetables do you eat per day (serving size is equal to 1 cup or approximately the size of a tennis ball)? 3-5 08/24/2024 Dental Answer Date Recorded Dental: Regular Dentist No 08/24/20 Employment Answer Date Recorded Employment status Retired 08/24/2024 Housing Stability Answer Date Recorded What is your living situation today? I have a [facility] place to live 08/24/2024 Comments No Sex and Gender Information Value Date Recorded Sex Assigned at Female 08/24/2024 1:36 PM CDT Legal Sex Female 11:47 AM STAFF AUDITOR Gender Identity Female 08/24/2024 1:36 PM CDT Sexual Orientation Straight 08/24/2024 1: 36 PM CDT Last Filed Vital Signs Vital Sign Reading Time Taken Comments Blood Pressure 128/70 07/26/2024 2:57 PM CDT Pulse 99 07/26/2024 2:57 PM CDT Temperature 36.7 C (98.1 F) 07/26/2024 2:57 PM CDT Respiratory Rate 16 07/26/2024 2:57 PM CDT Oxygen Saturation 95% 07/26/2024 2:57 PM CDT Inhaled Oxygen Concentration - - Weight 108 kg (238 lb 1.6 oz) 07/26/2024 1:00 PM CDT Height 157.5 cm (5' 2) 07/25/2024 2:09 PM CDT Body Mass Index 43.55 07/25/2024 2:09 PM CDT Plan of Treatment Upcoming Encounters Date Type Department Care Team (Late st Contact Info) Description 11/26/2024 9:20 AM STAFF AUDITOR Appointment Division of singer back tender in [place], [place] [address] [place] [address] Ori Murray M.D., D.M.D. [address] [place] [address] Health Maintenance Due Date Last Done Comments Bone Density Scan (Osteoporosis Screen) 1951 CT Colonography 1951 Cologuard 1950 Colonoscopy 1950 Colorectal Cancer Screening 1950 Diabetic Office Visit with Foot Exam 1951 Dilated Eye Exam 1951 FIT 1951 Hepatitis C Screening 1950 Mammogram 1951 Office Visit for Blood Pressure Check / Re-check 1951 Urine Albumin 1951 Zoster Vaccines (1 of 2) 2001 RSV vaccine - (32-36 weeks) or 60+ years (1 - Risk 60-74 years 1-dose series) 2011 Lipid (Cholesterol) Screening 03/12/2020 03/12/2019 Hemoglobin A1C 01/25/2024 07/26/2023, 02/21, 10/24/2020, Additional history exists COVID-19 Vaccine ( season) 2024 Influenza Vaccine (#1) 2024 10/13/2006, 2002 Depression Screening (Annual PHQ-2) 10/23/2024 Fall Risk Screen (Annual) 10/23/2024 Creatinine Level (Kidney Function Test) 07/26/2025 07/26/2024, 07/18/2024, 06/14/2024, Additional history exists DTaP,Tdap,and Td Vaccines (4 - Td or Tdap) 04/12/2032 04/12/2022, 10/13/2006, 10/13/2006 Hepatitis B Vaccines Completed 02/26/2020, 01/22/2020, 01/23/2019, Additional history exists Pneumococcal vaccine (50+ years) Completed 06/18/2024, 05/23/2018, 11/06/2017 IPV Vaccines Aged Out No longer eligi ble based on patient's age to complete this topic Procedures Procedure Name Priority Date/Time Associated Diagnosis Comments BASIC METABOLIC PANEL, S/P Routine 07/26/2024 3:29 AM CDT from Last 3 Months or Most Recently Relevant to Health Maintenance Results * (ABNORMAL) Basic Metabolic Panel (07/26/2024 3:29 AM CDT) Potassium, S 5.1 3.6 - 5.2 mmol/L 07/26/2024 6:53 AM CDT DTL Sodium, S 141 135 - 145 mmol/L 07/26/2024 6:53 AM CDT DTL Chloride, S 100 98 - 107 mmol/L 07/26/2024 6:53 AM CDT DTL Bicarbonate, S 23 22 - 29 mmol/L 07/26/2024 6:53 AM CDT DTL Anion Gap 18(H) 7 - 15 07/26/2024 6:53 AM CDT DTL BUN (Blood Urea Nitrogen), S 39(H) 6 - 21 mg/dL 07/26/2024 6:53 AM CDT DTL Creatinine 3.59(H) 0.59 - 1.04 mg/dL 07/26/2024 6:53 AM CDT DTL Estimated GFR (eGFR) <15(L) >=60 mL/min/BSA 07/26/2024 6:53 AM CDT DTL Comment: Estimated GFR calculated using the 2020 CKD_EPI creatinine equation. Calcium, Total, S 8.8 8.8 - 10.2 mg/dL 07/26/2024 6:53 AM CDT DTL Glucose, S 85 70 - 140 mg/dL 07/26/2024 6:53 AM CDT DTL Blood (Blood, Venous) 07/26/2024 3:29 AM CDT 07/26/2024 6:31 AM CDT Dominick Regan M.D., D.D.S. LAB BLOOD ADD-ON Keri garrett Result [facility] [address] [place] [address], RUST DTL [facility] [address] [place] [address] from Last 3 Months or Most Recently Relevant to Health Maintenance Insurance MEDICARE BLUE [place] BLUE SHIELD [facility] CARE Advance Directives For more information, please contact: [phone] Documents on File Type Date Recorded Patient Energy Risk Management Analyst Expl anation Advance Directives 07/22/2024 10:26 AM Advance Directives 07/18/2024 3:52 PM Clay Galeano HCPOA/ADVOCATE/AGENT/ CREDIT UNION TELLER/SURROG ATE Healthcare Agents on File Name Relationship Healthcare Agent Relationship Communication Clay Alberts Spouse Health Care Agent Jonathon Alberts Son First Alternat e Health Care Agent Fanny Galeano Unknown Second Alte rnate Health Care Agent
--- OUTSIDE RECORDS SUMMARY | 2024-11-08 16:01 | XMS_ITS ---
Author Organization [facility] Address [address] [place] [address] Care Team Providers Care Contact Lens Inspector Name Role Phone Unavailable Unavailable Unavailable Surgery Details Not on file Complications Check Surgery Details section. Procedure Estimated Blood Loss Check Surgery Details section. Procedure Findings Check Surgery Details section. Procedure Specimens Taken Check Surgery Details section.
--- OUTSIDE RECORDS SUMMARY | 2024-11-08 16:01 | XMS_ITS | Referral Summary ---
Author Organization [facility] Address [address] [place] [address] Care Team Providers Care Parachute Supervisor Name Role Phone Unavailable Primary Care Provider Unavailabl e Source Comments Patient records contain information from all sites at [facility]. For routine questions regarding patient records, call [phone] during business hours, M-F 8:00 AM - 5:00 PM Central Time. Record requests for emergency care only can be directed to [phone] at any time.[facility] Encounters Date Type Department Care Team Description 08/27/2024 3:13 PM TWISTING PRESS OPERATOR - 08/27/2024 7:39 PM TWISTING PRESS OPERATOR Hospital Encounter Division of research epidemiologist in [place], [place] [address] [place] [address] Ori Murray M.D., D.M.D. Malignant Neoplasm Of Lip (Primary Dx) from Last 3 Months Allergies Active Allergy Reactions Criticality Noted Date Comments Astemizole Rash 06/15/2021 Other reaction(s): [place] Benzalkonium [place] Nausea And Vomiting,Nausea Only 06/15/2021 Brimonidine Acute Interstitial Nephritis,Other (see comments) High 06/15/2021 Other reaction(s): Nephritis Cinacalcet Hives only, no other systemic symptoms,Hives (Reselect Reaction) 02/16/2021 [place] Rash 06/15/2021 Cranberry Angioedema,Edema (Reselect Reaction),Edema, suggestive of allergic reaction, i.e., lip, tongue, or throat swelling,Rash High 08/13/2010 Flu Vac [id number](36mo,Up)(Pf) Hives (Reselect Reaction) Medium 07/25/2024 Hexylnicotinate Nausea And Vomiting,Nausea Only 06/15/2021 Hydrocodone-Acetaminoph en Rash High 01/22/2018 Pt became itchy around the mouth and then violently threw up after taking 1 [place] post surgery Other reaction(s): Flushing Pt became itchy around the mouth and then violently threw up after taking 1 [place] post surgery Iodinated Contrast Media Hives with [...] 08/01/2009 Overview (07/18/2024): YUNIEL and cardioversion 07/31/2009 Social History Tobacco Use Types Packs/Day Years Used Date Smoking Tobacco: Former Smokeless Tobacco: Never Tobacco Cessation:Counseling Given: Not Answered Alcohol Use Standard Drinks/Week Comments Not Currently 0 (1 standard drink = 0.6 oz pur e alcohol) [facility] Utilities Answer Date Recorded In the past 12 months has th e [employer], gas, oil, or water company threatened to [...] Date Recorded Dental: Regular Dentist No 08/24/20 24 Employment Answer Date Recorded Employment status Retired 08/24/2024 Housing Stability Answer Date Recorded What is your living situation today? I have a [facility] place to live 08/24/2024 Comments No Sex and Gender Information Value Date Recorded Sex Assigned at Female 08/24/2024 1:36 PM CDT Legal Sex Female 11:47 AM TWISTING PRESS OPERATOR Gender Identity Female 08/24/2024 1:36 PM CDT [...] st Contact Info) Description 11/26/2024 9:20 AM TWISTING PRESS OPERATOR Appointment Division of research epidemiologist in [place], [place] [address] [place] [address] Ori Murray M.D., D.M.D. [address] [place] [address] Procedures Procedure Name Priority Date/Time Associated Diagnosis [...] Regan M.D., D.D.S. LAB BLOOD ADD-ON Keri gerry Result [facility] [address] [place] [address], [facility] DTL [facility] [address] [place] [address] from Last 3 Months or Most Recently Relevant to Health Maintenance Insurance MEDICARE [facility] [place] [address] Advance Directives For more information, please contact: [phone] Documents on File Type Date Recorded Patient Process Improvement Manager Expl anation Advance Directives 07/22/2024 10:26 AM Advance Directives 07/18/2024 3:52 PM Clay Galeano HCPOA/ADVOCATE/AGENT/ STUNTMAN/SURROG ATE Healthcare Agents on File Name Relationship Healthcare Agent Relationship Communication Clay Alberts Spouse Health Care Agent Jonathon Alberts Son First Alternat e Health Care Agent Fanny Galeano Unknown Second Alte rnate Health Care Agent
--- OUTSIDE RECORDS SUMMARY | 2024-11-08 16:01 | XMS_ITS ---
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 Phone Unavailable Primary Care Provider Unavailabl e Procedures Procedure Name Priority Date/Time Associated Diagnosis Comments BASIC METABOLIC PANEL, S/P Routine 07/26/2024 3:29 AM CDT from Last 3 Months or Most Recently Relevant to Health Maintenance Allergies Active Allergy Reactions Criticality Noted Date Comments Astemizole Rash 06/15/2021 Other reaction(s): [place]ushing Benzalkonium [place] Nausea And Vomiting,Nausea Only 06/15/2021 Brimonidine Acute Interstitial Nephritis,Other (see comments) High 06/15/2021 Other reaction(s): Nephritis Cinacalcet Hives only, no other systemic symptoms,Hives (Reselect Reaction) 02/16/2021 [place] Rash 06/15/2021 Cranberry Angioedema,Edema (Reselect Reaction),Edema, suggestive of allergic reaction, i.e., lip, tongue, or throat swelling,Rash High 08/13/2010 Flu Vac [id number](36mo,Up)(Pf) Hives (Reselect Reaction) Medium 07/25/2024 Hexylnicotinate Nausea And Vomiting,Nausea Only 06/15/2021 Hydrocodone-Acetaminoph en Rash High 01/22/2018 Pt became itchy around the mouth and then violently threw up after taking 1 [place] post surgery Other reaction(s): Flushing Pt became itchy around the mouth and then violently threw up after taking 1 [place] post surgery Iodinated Contrast Media Hives with [...] pain Indication: Acute Pain Exception. 30 tablet 4 Active Active Problems Problem Noted Date Diagnosed [...] = 0.6 oz pur e alcohol) [facility] Utilities Answer Date Recorded In the past 12 months has e [employer], gas, oil, or water [employer] threatened to shut off services in your [...] money to buy more. Never true 08/24/20 Within the past 12 months, t he [...] your living situation today? 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 LAB BLOOD ADD-ON Keri l Result [facility] [address] [place] [address], [facility] [address] [place] [address] from Last 3 Months or Most Recently Relevant to Health Maintenance
--- OUTSIDE RECORDS SUMMARY | 2024-11-08 16:02 | XMS_ITS ---
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 Problems This patient has no known problems.
[2024-11-08 16:08] LABS: PCR FLU A Negative PCR FLU A (Negative); PCR FLU B Negative PCR FLU B (Negative); PCR RSV Negative PCR RSV (Negative); SARS PCR* Negative SARS-CoV-2 (Negative)
[2024-11-08 17:13] LABS: Troponin, Point-of-Care* 0.03 ng/ml (0.01-0.04)
== END 2024-11-08 18:59 | disposition home or self-care (01) ==
PROVIDERS: Emergency Provider Family Medicine; PCP Family Medicine
DX: R07.9 Chest pain, unspecified (principal); Z99.2 Dependence on renal dialysis
CPT/HCPCS: 36415; 80053; 83605; 83880; 84100; 84484; 85025; 86140; 87631; 93005; 99284

== ENCOUNTER 2024-11-08 18:48 | Outpatient (CLI) | payer MEDICARE, BC, SELFPAY | END 2024-11-08 18:49 | disposition home or self-care (01) | LOC: AMB 11-23 21:43 | PROVIDERS: PCP Family Medicine; Visit Provider Student in an Organized Health Care Education/Training Program | DX: R07.9 Chest pain, unspecified (principal) | CPT/HCPCS: A0425; A0428 ==

== ENCOUNTER 2024-11-29 14:45 | Outpatient (CLI) | payer MEDICARE, BC, SELFPAY | END 2024-11-29 14:46 | disposition home or self-care (01) | LOC: AMB 12-06 10:43 | PROVIDERS: PCP Family Medicine; Visit Provider Internal Medicine | DX: R51.9 Headache, unspecified (principal); R42 Dizziness and giddiness | CPT/HCPCS: A0425; A0427 ==

== ENCOUNTER 2025-04-25 14:12 | Outpatient (CLI) | payer MEDICARE, BC, SELFPAY | END 2025-04-25 14:13 | disposition home or self-care (01) | LOC: AMB 04-28 13:20 | PROVIDERS: PCP Family Medicine; Visit Provider Emergency Medicine Emergency Medical Services | DX: D72.829 Elevated white blood cell count, unspecified (principal); S81.801A Unspecified open wound, right lower leg, initial encounter | CPT/HCPCS: A0425; A0433 ==

== ENCOUNTER 2025-04-25 14:46 | Emergency (ER) | payer MEDICARE, BC, SELFPAY ==
--- OUTSIDE RECORDS SUMMARY | 2025-04-10 13:47 | XMS_ITS | Encounter Summary ---
Author Organization [facility] Address [address] [place] [address] Care Team Providers Care Communication Studies Professor Name Role Phone Elsewhere, Pcp Primary Care Provider Unavailabl e Reason for Referral * Outpatient (Routine) - Closed Specialty Diagnoses / Procedures Referred By James michaels Referred To Contact Diagnoses [facility] Procedures OMS Panorex Dionicio Stewart D.D.S. [address] [place] [address] Phone: tel: fax: [facility] Referral ID Status Reason Start Date Expiration Date Visits Re quested Visits Authorized [id number] Closed 04/10/2025 07/11/2026 1 1 Reason for Visit * Appointment Request (Routine) - Closed Specialty Diagnoses / Procedures Referred By James michaels Referred To Contact anodize machine operator Diagnoses [facility] Impacted Tooth Third Molar Alexander Meredith D.D.S. [address] [address] Phone: tel: fax: Referral ID Status Reason Start Date Expiration Date Visits Re quested Visits Authorized [id number] Closed 01/29/2025 05/01/2026 1 1 Encounter Details Date Type Department Care Team (Latest Contact Info) Description 04/10/2025 1:47 PM CDT Hospital Encounter Division of anodize machine operator in [place], [place] [address] [place] [address] Ori Murray M.D., D.M.D. [address] [place] [phone] Dionicio Stewart D.D.S. [address] [place] [phone] [facility] (Primary Dx) Discharge Disposition: Home or Self Care Social History Tobacco Use Types Packs/Day Years Used Date Smoking Tobacco: Former Smokeless Tobacco: Never Alcohol Use Standard Drinks/Week Comments Not Currently 0 (1 standard drink = 0.6 oz pur e alcohol) [facility] Utilities Answer Date Recorded In the past 12 months has [employer], gas, oil, or water [employer] threatened to shut off services in your [...] by your partner or ex-partner? No 07/26/2024 Hunger Vital Sign Answer Date Recorded Within [...] things needed for daily living? No 08/24/2024 Housing Stability Answer Date Recorded What is your living situation today? 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 - 04/10/2025 2:00 PM CDT Images from the original note were not included. Contact Numbers for anodize machine operator During weekday hours (usual business hours) [phone] Evening or Weekends [phone] (ask for the Oral Surgeon mission assessment specialist) Pain Management Recommendations after Removal of [place] Teeth Start taking pain medication before pain starts - preferably before the local anesthesia has worn off (within first 2-3 hours after your procedure). Get something in your stomach prior to starting the medications to help avoid nausea - a Frosty from [employer] is a good option because you must use a spoon (No straws after extractions) Over the counter medications (Tylenol and Aleve) are the most effective medications to control oralsurgical pain in most instances. Aleve is more potent than Advil or Ibuprofen (3 Aleve = 16 Advil or Ibuprofen tabs) Give the Tylenol and Aleve tablets ON SCHEDULE rather than as needed This will keep these medications at a consistent level in the body, thus helping to control breakthrough pain. Start this schedule as soon as you get home and continue for 3-5 days Tylenol can be taken with an empty stomach. Aleve must be taken with food or milk A small number of patients may be given a prescription for Oxycodone. If this was prescribed, be aware it is a narcotic and is to be used only as needed. Breakfast Aleve (naproxen) 220 mg with food/milk If prescribed, use Oxycodone only as needed to control pain throughout the day and night. Take withfood/milk. Mid-morning Tylenol 1000 mg Lunch Aleve (naproxen) 220 mg with food/milk Mid-afternoon Tylenol 1000 mg Dinner Aleve (naproxen) 220 mg with food/milk Bedtime Tylenol 1000 mg Most patients will need some pain medications for 3 to 5 days after the procedure. At that point the medications can be decreased and then stopped as tolerated Call our practice at any time if you have questions about pain control or problems - we want to make your recovery as comfortable as possible Care After Tooth Removal Surgery Surgical site To control bleeding and to help a blood clot form, your provider places gauze on the surgical site.You are asked to use firm pressure to bite down on the gauze. Be sure you understand when and how to remove or change the gauze. Talk to a member of your health care team if you have questions. If blood clots dislodge or break away, you may have bleeding that delays healing. Avoid these actions, which can dislodge blood clots: Do not rinse your mouth, spit or brush your teeth on the day of your surgery. Do not use straws for five days after surgery. Do not smoke for at least five days after surgery. Smoking can delay healing and lead to a dry socket. Eating and drinking Eat only soft foods for the first few days. Do not chew near the surgical site. Drink clear liquids to help prevent dehydration. Drink enough liquids, about 1 to 2 liters a day, to keep your urine light yellow. Eat solid foods only when you can comfortably chew them. For two weeks after surgery, do not eat hard or crunchy foods such as popcorn or nuts. They can getstuck in the surgical area. This can lead to infection. Other instructions If your health care provider prescribes an antibiotic medication, take it exactly as you have been told until you finish the medication. If you use an orthodontic mouth guard, wear it on the day of your surgery only if it fits. The mouth guard may not fit correctly because of swollen gums at the surgical site. If that happens, wait until the mouth guard fits properly, and then wear it as you have been told. Typically, you can wear the mouth guard within a few days. You are given an ice pack to apply to your face for the first 24 to 48 hours. Apply it as you have been told. It may help lessen pain and inflammation. Ask your health care provider when you may return to school or work. Find out when you may play sports or exercise again. Managing pain You may have pain in the surgical area as well as in other teeth. The amount of pain is different for each person. Pain is a natural part of the healing process. Your health care team is committed tohelping you safely manage your pain so you can do the things that help you heal. Managing pain does not mean you will feel no pain at all. No medication or activity completely takes away pain. Pain usually gets better as you heal. However, it is more likely to do so when you try to be active. For instance, you can walk, do deep breathing exercises, change positions, or do recommended exercises. Good pain management is a team effort. You and your health care providers work together to manage your pain. Talk with your team. Set up a plan that works for you. Your pain management plan may include: Strategies that may lower your pain without taking medications. These include gentle exercises, applying ice or heat, and relaxation. Joxo-yao-ccxtmun medications. Prescription medications. Together, you and your health care team can set up a plan to safely manage your pain. The goal of pain management is to make you more comfortable. Doing that helps you get the rest you need to do theactivities that can help you heal. Dry socket Dry socket is a possible temporary complication of tooth removal. Typically, a blood clot forms in the socket where a tooth was removed. The clot protects the area as it starts to heal. If a clot breaks away or breaks down too soon, the underlying bone is exposed to saliva, bacteria and food. If this happens, it is usually happens three to seven days after surgery. Dry socket most often affects the sockets of lower back teeth. People who smoke or have diabetes and women who take control pills have the greatest risk for dry socket. Symptoms of dry socket include: Severe, ongoing pain near the surgical site that is not helped by the recommended pain medication. Pain that spreads to the ear, chin or other areas of the jaw and face. Bad breath. Bad taste in the mouth. Treatment includes gently rinsing the affected socket to remove any pieces of food. Pain is managedwith pain medication or a medicated dressing that is sometimes placed into the socket. If you have symptoms of dry socket or signs of infection, call your health care team at the number you were given. The number may be different if you call after hours. If you call after business hours, you speak to the resident on duty. Bleeding from the surgical site Some bleeding from the surgical site is normal. Usually it is only enough to make your saliva red. Do not spit out bloody saliva during the first 24 hours after surgery. Swallow it or gently absorb it with a tissue. If you use a tissue, do not touch the surgical site. You could dislodge a blood clot and cause more bleeding. If the bleeding seems to be more than minor oozing, put a piece of folded, moist, clean gauze over the site. The gauze must be moist so it does not stick to the area. Bite down firmly for 20 to 30 minutes without moving the gauze. Then gently pull away the gauze. If bleeding continues, repeat as needed. Instead of gauze, you may put a wet tea bag over the site. Use black tea, not green tea. Bite down firmly for 20 to 30 minutes without moving the tea bag. Then gently pull away the tea bag. If bleeding continues, repeat as needed. Other side effects You may have: Pain in your mouth, jaw or at the site. Swelling and bruising. Nausea, sometimes as a result of anesthesia or sedation, pain medications or antibiotics. To help prevent or lessen nausea, take medications with food or milk. Drink an additional two to three 8-ounce glasses of water a day. Temporary numbness of the teeth, gums, tongue, and chin. If you have numbness that lasts for more than 48 hours, contact your health care provider. A slight fever, usually less than 100.4 degrees Fahrenheit (38 degrees Celsius), for 1 or 2 days after surgery. An earache for a few days. A sore throat for a few days. Dry or cracked corners of the mouth. Use an icwl-nmg-hmvbdby lip balm. Care on Days 1 to 4 After Surgery Use this information to help with your recovery. Start the day after your tooth removal surgery. Surgical site Keep your mouth clean. This helps the surgical site heal and prevents infection and other complications. To do this: For five days: Rinse your mouth gently with warm salt water at least 3 to 5 times a day, especiallyafter meals and snacks. To make salt water, mix 1/2 teaspoon of salt in an 8-ounce glass of warm orroom-temperature water. [place] your teeth, tongue and the roof of your mouth. Be very gentle when you brush near the surgical area. If you usually use a mouth wash or fluoride mouth rinse, wait seven days after surgery before you use it. When to Contact Your Health Care Team Contact a member of your health care team if you experience the following: Any signs of infection: Temperature of 100.4 degrees Fahrenheit (38 degrees Celsius) or greater. Chills. Increased swelling, tenderness or redness at the site. Increased pain or pain not relieved by pain medications. A bad-smelling odor or new or increased drainage coming from the site. Increased pain or pain not relieved by pain medications. Concerns about the amount of bleeding, how long it lasts, or if bleeding is not controlled. Symptoms of dry socket. A rash. Difficulty breathing. Severe or continued vomiting. Looking forward Use the directions in this resource to help you recover from your tooth removal surgery. You are an important member of your health care team. Talk with your health care providers if you have questions about caring for yourself after your surgery. This material is for your education and information only. This content does not replace medical advice, diagnosis or treatment. New medical research may change this information. If you have questionsabout a medical condition, always talk with your health care provider. ?? 2019 [facility] [employer] [facility] [employer] ([facility]). All rights reserved. [id number] documented in this encounter Medications at Time of Discharge acetaminophen (TylenoL) 500 mg tablet Take 1,000 mg by mouth 3 (three) times a day. allopurinoL (Zyloprim) 100 mg tablet Take 100 mg by mouth 3 (three) times a week. At bedtime on Mondays, Wednesdays and Fridays amiodarone (Pacerone) 200 mg tablet Take 200 mg by mouth at bedtime. AMMONIUM LACTATE TOP Apply 1 Application topically 2 (two) times a day. Apply to Torso, arms and legs. amoxicillin-pot clavulanate (Augmentin) 500-125 mg per tablet Take 1 tablet by mouth every evening. apixaban (Eliquis) 2.5 mg tablet Take 2.5 mg by mouth 2 (two) times a day. B complex-vitamin C-FA (Triphrocaps) 1 mg capsule Take 1 capsule by mouth every evening. 11/11/2024 bisacodyL 5 mg tablet Take 5 mg by mouth at bedtime as needed. 11/11/2024 cetirizine (ZyrTEC) 5 mg tablet Take 5 mg by mouth daily. ciprofloxacin (Cipro) 500 mg tablet Take 500 mg by mouth daily before morning meal. cyanocobalamin (Vitamin B-12) 1,000 mcg tablet Take 1,000 mcg by mouth daily. diphenhydrAMINE (BenadryL) 25 mg tablet Take 25 mg by mouth every 4 (four) hours as needed for itching. DME Bi-level PAP DME Oxygen Inhale 2-5 L continuously. 2 LPM continuous Increase to 5 LPM when on BiPap Do not wean ferrous sulfate 325 mg (65 mg iron) DR tablet Take 65 mg of iron by mouth every evening. fluticasone propion-salmeteroL 500-50 mcg/dose diskus inhaler Inhale 1 puff every 12 (twelve) hours. fluticasone propionate (Flonase) 50 mcg/actuation nasal spray Administer 2 sprays into each nostril daily. guaiFENesin 400 mg tablet Take 400 mg by mouth every 4 (four) hours as needed for cough. lanthanum (FosrenoL) 500 mg chewable tablet Chew 1,500 mg 3 (three) times a day with meals. methocarbamoL (Robaxin) 500 mg tablet Take 1,000 mg by mouth 3 (three) times a day as needed for muscle spasms. mineral oil-hydrophil petrolat ointment, AQUAPHOR, Apply topically as needed for irritation. Apply to groin. ondansetron (Zofran) 8 mg tablet Take 8 mg by mouth every 6 (six) hours as needed for nausea or vomiting. oxyCODONE (Roxicodone) 5 mg immediate release tablet Take 5 mg by mouth 2 (two) times a day. oxyCODONE (Roxicodone) 5 mg immediate release tabletIndications: Acute Pain Exception Take 1 tablet (5 mg total) by mouth every 4 (four) hours as needed for pain Indication: Acute Pain Exception. 12/05/2024 pantoprazole (Protonix) 40 mg EC tablet Take 40 mg by mouth 2 (two) times a day before morning and evening meals. polyethylene glycol (Miralax) 17 gram powder packet Take 17 g by mouth 2 (two) times a day. Dissolve each 17 g dose in 240 mLs (8 ounces) of beverage. sucroferric oxyhydroxide (Velphoro) 500 mg (2500 mg sucroferric oxyhydroxide) chewable tablet Chew 500 mg 3 (three) times a day with meals. 08/20/2024 documented as of this encounter Consult Notes * John Fonseca D.M.D. - 04/10/2025 2:00 PM CDT SUBJECTIVE CHIEF COMPLAINT/REASON FOR CONSULT Soo Alberts is a 74 y.o. 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 She was referred by Dr. Alexander Meredith. PMH significant for AFib on Eliquis (held this AM) HTN, FALGUNI (BiPAP), COPD, T2DM, CKD, Asthma, Hx ofSCC lip treated with resection. Distant history of fosamax use. MEDICAL HISTORY Medical History[1] SURGICAL HISTORY Surgical History[2] SOCIAL HISTORY Social History[3] CURRENT MEDICATIONS Current Medications[4] ALLERGIES/CONTRAINDICATIONS Allergies[5] OBJECTIVE PHYSICAL EXAMINATION Extraoral Head and Neck Exam: No masses, cervical lymphadenopathy nor other significant abnormality. Scarring of lower lip consistent with previous surgery Intraoral Soft Tissue Exam: No soft tissue pathology. Dental and Osseous Structures Exam: Confirms the need to remove the teeth listed above. DIAGNOSTICS Imaging: Appropriate studies were reviewed including Panorex. ASSESSMENT / PLAN #Carious teeth #17, 19, 30. Based on an appropriate review of this patient's referral, clinical history and examination, as well as review of appropriate imaging, treatment will be provided today, specifically removal of teeth #17, 19, 30. We discussed with the patient and/or their parent/caregiver/healthcare power of spanish interpreter/translator the risks,benefits, alternatives, anesthesia, possibility of additional procedures, healthcare team approach,potential for overlapping incisions/procedures, possible use of photography/video, potential for and consent to transfusion, placement of implants and exposure of patient/surgical team. All questionswere answered and consent given to proceed. Specific attention was given to the risk of MRONJ and bleeding due to hx fosamax use and Eliquis use. [1] No past medical history on file. [2] Past Surgical History: Procedure Laterality Date WEDGE RESECTION LIP Left 07/25/2024 Procedure: vermillionectomy, mucosal advancement flap. Biopsy lesion, lip.; Surgeon: Ori Murray M.D., D.MJamie; [facility] [3] Social History Tobacco Use Smoking status: Former Smokeless tobacco: Never Vaping Use Vaping status: never used Substance Use Topics Alcohol use: Not Currently [4] Current Outpatient Medications: acetaminophen (TylenoL) 500 mg tablet, Take 1,000 mg by mouth 3 (three) times a day., Disp: , Rfl: allopurinoL (Zyloprim) 100 mg tablet, Take 100 mg by mouth 3 (three) times a week. At bedtime on Mondays, Wednesdays and Fridays, Disp: , Rfl: amiodarone (Pacerone) 200 mg tablet, Take 200 mg by mouth at bedtime., Disp: , Rfl: AMMONIUM LACTATE TOP, Apply 1 Application topically 2 (two) times a day. Apply to Torso, arms and legs., Disp: , Rfl: amoxicillin-pot clavulanate (Augmentin) 500-125 mg per tablet, Take 1 tablet by mouth every evening., Disp: , Rfl: apixaban (Eliquis) 2.5 mg tablet, Take 2.5 mg by mouth 2 (two) times a day., Disp: , Rfl: B complex-vitamin C-FA (Triphrocaps) 1 mg capsule, Take 1 capsule by mouth every evening., Disp: , Rfl: bisacodyL 5 mg tablet, Take 5 mg by mouth at bedtime as needed., Disp: , Rfl: cetirizine (ZyrTEC) 5 mg tablet, Take 5 mg by mouth daily., Disp: , Rfl: ciprofloxacin (Cipro) 500 mg tablet, Take 500 mg by mouth daily before morning meal., Disp: , Rfl: cyanocobalamin (Vitamin B-12) 1,000 mcg tablet, Take 1,000 mcg by mouth daily., Disp: , Rfl: diphenhydrAMINE (BenadryL) 25 mg tablet, Take 25 mg by mouth every 4 (four) hours as needed for itching., Disp: , Rfl: DME Bi-level PAP, , Disp: , Rfl: DME Oxygen, Inhale 2-5 L continuously. 2 LPM continuous Increase to 5 LPM when on BiPap Do not wean, Disp: , Rfl: ferrous sulfate 325 mg (65 mg iron) DR tablet, Take 65 mg of iron by mouth every evening., Disp: , Rfl: fluticasone propion-salmeteroL 500-50 mcg/dose diskus inhaler, Inhale 1 puff every 12 (twelve) hours., Disp: , Rfl: fluticasone propionate (Flonase) 50 mcg/actuation nasal spray, Administer 2 sprays into each nostril daily., Disp: , Rfl: guaiFENesin 400 mg tablet, Take 400 mg by mouth every 4 (four) hours as needed for cough., Disp: , Rfl: lanthanum (FosrenoL) 500 mg chewable tablet, Chew 1,500 mg 3 (three) times a day with meals., Disp:, Rfl: methocarbamoL (Robaxin) 500 mg tablet, Take 1,000 mg by mouth 3 (three) times a day as needed for muscle spasms., Disp: , Rfl: mineral oil-hydrophil petrolat ointment, AQUAPHOR,, Apply topically as needed for irritation. Applyto groin., Disp: , Rfl: ondansetron (Zofran) 8 mg tablet, Take 8 mg by mouth every 6 (six) hours as needed for nausea or vomiting., Disp: , Rfl: oxyCODONE (Roxicodone) 5 mg immediate release tablet, Take 5 mg by mouth 2 (two) times a day., Disp: , Rfl: oxyCODONE (Roxicodone) 5 mg immediate release tablet, Take 1 tablet (5 mg total) by mouth every 4 (four) hours as needed for pain Indication: Acute Pain Exception., Disp: , Rfl: pantoprazole (Protonix) 40 mg EC tablet, Take 40 mg by mouth 2 (two) times a day before morning andevening meals., Disp: , Rfl: polyethylene glycol (Miralax) 17 gram powder packet, Take 17 g by mouth 2 (two) times a day. Dissolve each 17 g dose in 240 mLs (8 ounces) of beverage., Disp: , Rfl: sucroferric oxyhydroxide (Velphoro) 500 mg (2500 mg sucroferric oxyhydroxide) chewable tablet, [id number] mg 3 (three) times a day with meals., Disp: , Rfl: [5] Allergies Allergen Reactions Brimonidine Acute Interstitial Nephritis and Other (see comments) Other reaction(s): Nephritis Cranberry Angioedema, Edema (Reselect Reaction), Edema, suggestive of allergic reaction, i.e., lip,tongue, or throat swelling and Rash Hydrocodone-Acetaminophen Rash Pt became itchy around the mouth and then violently threw up after taking 1 [place] post surgery Other reaction(s): Flushing Pt became itchy around the mouth and then violently threw up after taking 1 [place] post surgery Iodinated Contrast Media Hives with other symptoms including blisters and Itching 07-18-[address] contrast reactions in the past with hives and blister on upper half of body and severe itching. Redded skin with sloughing Ketorolac Renal Failure Other reaction(s): Nephrotoxicity, Renal Failure Other reaction(s): Renal Failure Other reaction(s): Nephrotoxicity, Renal Failure Lisinopril Renal Failure Other reaction(s): Renal Failure Flu Vac [id number](36mo,Up)(Pf) Hives (Reselect Reaction) Aspirin Other (see comments) Per SNF Astemizole Rash Other reaction(s): Flushing Benzalkonium [place] Nausea And Vomiting and Nausea Only Cinacalcet Hives only, no other systemic symptoms and Hives (Reselect Reaction) [place] Rash Darvocet A500 [Propoxyphene N-Acetaminophen] GI intolerance Hexylnicotinate Nausea And Vomiting and Nausea Only Latex Itching More so if longer exposure per patient Other reaction(s): Itching of skin (finding) Levofloxacin Rash and Itching Other reaction(s): Itching Tolerated ciprofloxacin 04/2022 Other reaction(s): Itching Levothyroxine Other (see comments) Per SNF Methacholine GI bleeding Other reaction(s): GI Bleeding Morphine GI intolerance, Nausea And Vomiting and Nausea Only Naproxen Other (see comments) Per SNF Oxycodone Other (see comments) Per SNF Pentazocine Nausea And Vomiting, Nausea Only and GI intolerance Percodan [place] Nausea And Vomiting and GI intolerance Propoxyphene Nausea And Vomiting, Nausea Only and GI intolerance Quinidine Other (see comments), Rash and GI intolerance hospitalized Other reaction(s): Rash, Fever, Vomiting, Skin Rash Other reaction(s): Fever hospitalized Other reaction(s): Rash, Fever, Vomiting, Skin Rash Succinylcholine Itching Sulfa (Sulfonamide Antibiotics) Rash and Other (see comments) Other reaction(s): Rash, Skin Rash Talwin Compound Other (see comments) Per SNF Cosigned by Dionicio Stewart D.D.SZa at 04/10/2025 3:28 PM CDT documented in this encounter OR Notes * Op Note - John Fonseca D.M.D. - 04/10/2025 1:47 PM CDT PROCEDURE(S): Extraction of teeth 17, 19, and 30. SURGEON(S): Dionicio Stewart D.D.S. ENERGY CONTROL OFFICER: John Fonseca D.M.D. ANESTHESIA TYPE: Local anesthesia. PRE-OPERATIVE DIAGNOSIS Carious teeth 17, 19, and 30. POST-OPERATIVE DIAGNOSIS Carious teeth 17, 19, and 30. FINDINGS As expected. COMPLICATIONS None. OPERATIVE NOTE NARRATIVE The patient was prepared in the usual manner for surgery including appropriate monitors. A pre-procedural pause was performed to confirm patient identity and planned procedure(s). After administration of local anesthesia, a secondary intra-procedural pause was performed prior to each individual procedure. Attention was first turned to teeth numbers 19 and 30 were removed by elevator and forceps simple extraction technique. Attention was then turned to tooth #17. After retrieval of the crown anddistal root of #17, the mesial root was retrieved via surgical extraction technique with removal ofinterdental bone. Routine suturing was utilized as necessary. Patient tolerated the surgery and anesthesia without complication and left the operating room in stable condition. SPECIMENS: None. ESTIMATED BLOOD LOSS: Minimal. TPR: 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 [place], [place] [address] [place] [phone] Ori Murray M.D., D.MZaDZa [address] [place] [phone] documented as of this encounter Procedures Procedure Name Priority Date/Time Associated Diagnosis Comments OMS PANOREX Routine 04/10/2025 2:09 PM CDT [facility] documented in this encounter Results * OMS Panorex (04/10/2025 2:09 PM CDT) Dionicio Stewart D.D.SZa PROCEDURE/MINOR SURGICA L ORDERABLES Final Result documented in this encounter Visit Diagnoses Diagnosis [facility]- Primary documented in this encounter Care Teams Communication Studies Professor Relationship Specialty Start Date End Date Elsewhere, Pcp PCP - General Internal Medicine 12/06/24 documented as of this encounter
--- OUTSIDE RECORDS SUMMARY | 2025-04-10 13:48 | XMS_ITS | Encounter Summary ---
Author Organization [facility] Address [address] [place] [address] Care Team Providers Care Sales Manager Name Role Phone Elsewhere, Pcp Primary Care Provider Unavailabl e Reason for Visit * Outpatient (Routine) - Closed Specialty Diagnoses / Procedures Referred By James t Referred To Contact Diagnoses [facility] Procedures OMS Panorex Dionicio Stewart D.D.S. [address] [place] [phone] Phone: tel: fax: [facility] Referral ID Status Reason Start Date Expiration Date Visits Re quested Visits Authorized [id number] Closed 04/10/2025 07/11/2026 1 1 Encounter Details Date Type Department Care Team (Latest Contact Info) Description 04/10/2025 1:48 PM CDT - 04/10/2025 11:59 PM CDT Hospital Encounter Division of marriage therapist in [place], [place] [address] [place] [phone] Dionicio Stewart D.D.S. [address] [place] [phone] Discharge Disposition: Home or Self Care Social History Tobacco Use Types Packs/Day Years Used Date Smoking Tobacco: Former Smokeless Tobacco: Never Alcohol Use Standard Drinks/Week Comments Not Currently 0 (1 standard drink = 0.6 oz pur e alcohol) [facility] Utilities Answer Date Recorded In the past 12 months has th e electric, gas, oil, or water company threatened to [...] your living situation today? 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 08/20/2024 documented as of this encounter Plan of Treatment Upcoming Encounters Date Type Department Care Team (Late st Contact Info) Description 07/15/2025 3:40 PM CDT Appointment Division of marriage therapist in [place], [place] [address] [place] [phone] Ori Murray M.D., D.M.D. [address] [place] [phone] documented as of this encounter Procedures Procedure Name Priority Date/Time Associated Diagnosis Comments OMS PANOREX Routine 04/10/2025 2:09 PM CDT [facility] documented in this encounter Results * OMS Panorex (04/10/2025 2:09 PM CDT) us Dionicio Stewart D.D.S. PROCEDURE/MINOR SURGICA L ORDERABLES Final Result documented in this encounter Visit Diagnoses Not on filedocumented in this encounter Care Teams Sales Manager Relationship Specialty Start Date End Date Elsewhere, Pcp PCP - General Internal Medicine 12/06/24 documented as of this encounter
[2025-04-25 14:48] VITALS: BP 112/68; PULSE 101; RESP 18; TEMP 36.6; O2SAT 94; BMI 46.4
--- OUTSIDE RECORDS SUMMARY | 2025-04-25 14:48 | XMS_ITS | Clinical Summary ---
Author Organization [facility] Address Formerly [facility] [place] [address] Care Team Providers Care Veneer Sawyer Name Role Phone [facility] Unavailable Arden Joyner MD Primary Care P rovider Allergies Active Allergy Reactions Criticality Noted Date Comments Aspirin Vomiting 03/19/2014 Astemizole Flushing 06/15/2021 Benzalkonium [place] Nausea And Vomiting 06/15/2021 Brimonidine Nephritis 06/15/2021 Cinacalcet *Unknown 07/07/2022 Cinacalcet Hcl Hives,Contact Dermatitis Unknown 02/16/2021 [place] Rash 06/15/2021 Iodinated Contrast Media Hives 04/11/2022 Cranberry Edema,Angioedema High 07/05/2017 Propoxyphene-Acetaminop hen Rash,Nausea And Vomiting Flu Vac Cy0640-64(36mo,Up)(Pf) Hives Medium 05/28/2021 Hexylnicotinate Nausea And Vomiting 06/15/2021 Hydrocodone-Acetaminoph en Other - Describe In Comment Field,Flushing High 01/22/2018 Pt became itchy around the mouth and then violently threw up after taking 1 [place] post surgery Ketorolac Renal Failure 03/08/2007 Other [...] *Unknown - Pt Doesn't Remember 05/28/2021 Medications cyanocobalamin 1,000 mcg tablet Take 1,000 mcg by mouth once daily. Active amiodarone (CORDARONE) 200 mg tabletIndications: Atrial fibrillation, unspecified type (HC) Take 1 Tablet (200 mg) by mouth once daily. 90 Tablet 1 03/16/20 Active oxygen-air delivery systems (HOME OXYGEN)Indications :Chronic obstructive pulmonary disease, unspecified COPD type (HC) 2L during daytime, 5 L during night with bipap 1 Each 05/02/20 22 Active apixaban (ELIQUIS) 2.5 mg tabletIndications: Atrial fibrillation, unspecified type (HC) Take 1 Tablet (2.5 mg) by mouth 2 times daily. 60 Tablet 05/20/20 22 Active ferrous sulfate, 65 mg elemental, tabletIndications: Macrocytic anemia Take 1 Tablet (325 mg) by mouth once daily with a meal. 0 05/21/20 22 Active pantoprazole (PROTONIX) 40 mg delayed-release tabletIndications: gastroesophageal reflux disease Take 1 Tablet (40 mg) by mouth two times daily. 60 Tablet 07/31/20 22 Active cetirizine (ZYRTEC) 5 mg tablet Take 5 mg by mouth once daily. Active b complex-vitamin c-folic acid 1 mg (Triphrocaps) 1 mg capsule Take 1 Capsule by mouth once daily in the evening. Active acetaminophen (TYLENOL EXTRA STRGTH) 500 mg tabletIndications: S/P hardware removal Take 2 Tablets (1,000 mg) by mouth three times daily. Max acetaminophen dose: 4000mg in 24 hrs. 0 07/12/20 23 Active ciprofloxacin HCl (CIPRO) 500 mg tabletIndications: Chronic osteomyelitis (HC),Infection caused by Enterobacter cloacae 500 mg by mouth once daily starting February 16, 2023 90 Tablet 3 07/20/20 23 Active guaiFENesin 400 mg tablet Take 400 mg by mouth every 4 hours if needed for Cough (or congestion). Active allopurinoL (ZYLOPRIM) 100 mg tablet Take 100 mg by mouth every Monday, Monday and Monday. MWF at bedtime Active amoxicillin-clavul anate (AUGMENTIN) 500-125 mg tablet Take 1 Tablet by mouth once daily. Active polyethylene glycol (Miralax) 17 g per packet packet Mix 1 Packet in liquid then take by mouth two times daily. Active diphenhydrAMINE (BENADRYL) 25 mg tablet Take 25 mg by mouth every 4 hours if needed. Active sucroferric oxyhydroxide (Velphoro) 500 mg chew chewable tablet Chew 500 mg by mouth three times daily with meals. Active fluticasone propion-salmeteroL (ADVAIR) 500-50 mcg/Dose diskus inhaler Inhale 1 Puff by mouth every 12 hours. Active lanthanum (FOSRENOL) 500 mg chewable tablet Chew 1,500 mg by mouth three times daily with meals. Active bisacodyL (DULCOLAX) 5 mg tablet Take 5 mg by mouth once daily if needed. Active fluticasone (50 mcg per actuation) nasal solution (FLONASE)Indicatio ns:allergic rhinitis Inhale 2 Sprays in both nostrils once daily. Active tiZANidine (ZANAFLEX) 2 mg tabletIndications: muscle spasm Take 2 mg by mouth three times daily. Active lactulose 10 gram/15 mL solutionIndication s:constipation Take 20 g by mouth every 8 hours if needed for Constipation. Active ondansetron (ZOFRAN ODT) [address] 8 mg on the tongue 2 times daily if needed for Nausea/Vomiting. At least 6 hours between doses. Active white petrolatum (Aquaphor Baby Healing) 41 % ointment Apply a thin layer topically to the affected areas of dry skin per patient administration as needed Active oxyCODONE 5 mg immediate release tabletIndications: pain Take 1 Tablet (5 mg) by mouth every 4 hours if needed for Pain.Indications: pain Maximum of 2 tablets in 24 hours. 6 Tablet 01/10/20 Active Active Problems Problem Noted Date Diagnosed Date Need for vaccination 10/03/2024 SBO (small bowel obstruction) 06/12/2024 S/P SORAYA-BSO 06/12/2024 Lip dryness 01/18/2024 COVID-19 11/11/2023 S/P hardware removal 07/06/2023 Blood loss anemia 07/06/2023 Chronic osteomyelitis of right tibia with draini ng sinus 07/05/2023 Pyogenic inflammation of bone 07/05/2023 S/P Preparation [...] Enterobacter cloacae 022 Non-healing surgical wound 05/05/2022 Chronic obstructive pulmonary disease 03/16/2022 Arthritis of right shoulder region 03/03/2021 Overview (03/03/2021): 2020: right Shoulder GH osteoarthritis and large RC Tears on MRI. February 2021: right Shoulder GH Shoulder injection by Dr. Lazo under ultrasound guidance. Cellulitis of left lower extremity 04/28/2020 Wound of left leg, subsequent encounter 01/29/20 ESRD on hemodialysis 01/29/2020 Closed fracture of [...] 2018 and Jun 2019. 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 Chronic constipation 10/27/2017 Stercoral ulcer of rectum 10/27/2017 Overview (10/27/2017): Due to chronic constipation Causing GI bleeding and anemia July 2017 Chronic acquired lymphedema 06/30/2017 Morbid obesity with BMI of 50.0-59.9, adult 05/25 Restrictive lung disease 08/23/2016 Overview (08/23/2016): Severe per plant guard(08/09/16) Vitamin D deficiency 03/11/2015 ACP (advance care [...] Lung density on x-ray 01/28/2014 Gout 03/15/2013 Family hx of melanoma 06/07/2008 Asthma, Paroxysmal Atrial Fibrillation and Flutter Overview (07/31/2009): -1st episode 1996 -recurrence 2006 - sotalol regimen -recurrence 07/27/2009 s/p total hysterectomy - spontaneous conversion to NSR same day, but return to atrial flutter with 2:1 conduction Seasonal allergic rhinitis due to pollen Pulmonary [...] Obstruction 07/28/2009 Overview (07/31/2009): -post op SORAYA/BSO/PPALND Hypotension Anemia of chronic renal failure Open fracture of distal end of fibula and tibia, right, type III, initial encounter At risk for infection Resolved Problems Problem Noted Date Diagnosed Date Resolved Date COVID-19 with comorbid diabetes mellitus 11/11/2023 01/06/2025 Need for vaccination 11/11/2023 025 Anemia in ESRD (end-stage renal disease) 07/05/2023 01/06/2025 Hyponatremia 04/13/2022 01/06/2025 Hyperkalemia 04/13/2022 01/06/2025 Macrocytic anemia 04/13/2022 01/06/2025 Type 2 diabetes mellitus wit hout complication, without long-term current use of insulin 03/16/2022 03/16/2022 Severe sepsis 08/03/2020 07/07/2022 Cellulitis 08/03/2020 07/07/2022 Hyperkalemia 04/28/2020 07/07/2022 Left leg cellulitis 01/29/2020 07/07/20 Chronic respiratory failure with hypoxia 01/29/2020 03/16/2022 Traumatic hematoma of lower leg with infection, left, subsequent encounter 12/13/2019 Pain of left lower extremity 12/12/2019 01/29/2020 Cellulitis 07/31/2019 01/29/2020 BRBPR (bright red blood per rectum) 07/26/2019 01/29/2020 NIXON (acute kidney injury) 06/10/2019 Anemia 05/02/2019 01/06/2025 History of gout 05/02/2019 07/07/2022 Lightheadedness 05/02/2019 01/29/2020 Gram-positive cocci bacteremia 04/17/2019 01/29/2020 Morbid obesity with BMI of 60.0-69.9, adult 04/17/2019 01/06/2025 Acute hyperkalemia 12/14/2018 FALGUNI 04/2004 AHI/RDI:12 Sofi michaels also is on oxygen 11/16/2017 01/06/2025 Acute blood loss anemia 08/14/2017 04/0 05/2020 Abdominal pain 08/14/2017 01/29/2020 ESRD (end stage renal disease) on dialysis 08/14/2017 01/06/2025 Acute respiratory failure with hypoxia 06/30/2017 01/29/2020 Acute respiratory failure wi th hypoxia and hypercapnia 06/30/2017 01/29/2020 Septic shock 06/22/2017 01/29/2020 Bilateral lower extremity edema 08/23/2016 08/23/2016 Lymphedema 08/23/2016 10/26/2017 FALGUNI 04/2004 AHI-12 06/11/2015 01/06/2025 Cellulitis 03/04/2015 01/29/2020 MSSA (methicillin susceptibl e Staphylococcus aureus) pneumonia 03/20/2014 07/07/2022 Cough 03/13/2014 01/29/2020 Dyspnea 03/13/2014 01/29/2020 Atrial flutter 08/01/2009 01/06/2025 Overview (08/01/2009): YUNIEL and cardioversion 07/31/2009 C. difficile diarrhea 08/01/20092013 Hypokalemia 07/29/2009 03/13/2014 Anemia, unspecified 03/08/2007 07/21/20 09 Cellulitis and abscess of leg, except foot 03/08/2007 07/21/2009 Overview (03/08/2007): BILAT Hypertension (HTN) 5 Class 3 obesity due to exces s calories with serious comorbidity in adult 01/29/2020 Obstructive sleep apnea syndrome 01/06/2025 Cellulitis and abscess of unspecified site 07/21/2009 Overview (02/22/2007): recurrent Generalized edema 01/29/2020 Type 2 diabetes mellitus wit h kidney complication, without long-term current use of insulin 01/06/2025 History of Gout 03/15/2013 Chronic Renal Insufficiency 01/29/2020 Diarrhea 07/29/2009 8 Overview (07/31/2009): -associated with SBO ESRD (end stage renal disease) 01/06/2025 Adrenal mass, left 0 ESRD (end stage renal disease) 07/07/2022 Dependent edema 01/06/2025 Encounters Date Type Department Care Team Description 03/06/2025 10:30 AM CDT Office Visit [facility] [address] [facility] [address] [place] [address] Julia Ramírez MD Follow Up 03/06/2025 Travel 02/11/2025 10:19 AM CDT - 02/11/2025 11:59 PM CDT Hospital Encounter [facility] [address] [place] [address] Julia Ramírez MD Chronic osteomyelitis (HC) 02/11/2025 Telephone [facility] [address] [place] [address] Alexander Kerr MD Lab; Questions 02/11/2025 Travel 01/30/2025 11:30 AM CDT Office Visit [facility] [address] [place] [address] Julai Ramírez MD Follow Up 01/30/2025 Travel 01/29/2025 Lab Requisition [facility] [address] [place] [address] Unknown, Doctor from Last 3 Months Immunizations Immunization Administration Dates Next Due Hepatitis B (Adult) [...] drink = 0.6 oz pur e alcohol) PHQ-2 Answer Date Recorded PHQ-2 TOTAL SCORE 0 03/16/2022 Social Connections Answer Date Recorded Do you often feel lonely or isolated from those around you? 0 01/06/2025 Financial Resource Strain Answer Date R ecorded Difficulty of Paying Living Expenses 3 01/06/2025 Difficulty of Paying Living Expenses Not on file 01/06/2025 Food Insecurity Answer Date Recorded Do you worry your food will run out before you are able to buy more? 1 01/06/2025 Transportation Needs Answer Date Record ed Does lack of transportation keep you from medica l appointments? 1 01/06/2025 Does lack of transportation keep you from work, meetings or getting things that you need? 1 01/06/2025 Housing Stability Answer Date Recorded What is your housing situation today? 1 01/06/2025 Interpersonal Safety Answer Date Record ed Are you being hit, kicked, p ushed or yelled at (see row info)? No 01/06/2025 Interpersonal Safety Abuse 12 - 18 Not on file 01/06/2025 Interpersonal Safety Ambulatory Vulnerability No t on file 01/06/2025 Utilities Answer Date Recorded Do you have trouble paying f or utilities (for example, heat, electricity, water, phone)? 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 Gender Identity Not on file Sexual Orientation [...] Sign Reading Time Taken Comments Blood Pressure 93/64 01/30/2025 11:02 AM CDT Pulse 89 03/06/2025 10:28 AM CDT Temperature 36.5 C (97.7 F) 01/09/2025 7:18 AM CDT Respiratory Rate 16 03/06/2025 10:2 8 AM CDT Oxygen Saturation 98% 03/06/2025 10: 28 AM CDT Inhaled Oxygen Concentration - - Weight 111.7 kg (246 lb 4.1 oz) 01/08/2025 1:45 PM CDT Height 157.5 cm (5' 2) 01/05/2025 2:46 PM CDT Body Mass Index 45.04 01/05/2025 2:46 PM CDT Plan of Treatment Upcoming Encounters Date Type Department Care Team (Late st Contact Info) Description 08/07/2025 11:30 AM CDT Office Visit [facility] [address] [place], [place] [id number] Julia Ramírez MD [address] [place], [place] [id number] Health Maintenance Due Date Last Done Comments Zoster (shingles) series for age 50+ (1 of 2) 2001 RSV vaccine for adults or (1 - Risk 60-74 years 1-dose series) 2011 Fecal testing non-DNA (FIT,FOBT,iFOBT) for age 45-75 05/08/2016 05/08/2015 DEXA/DXA scan for age 65+ 2016 Medicare Wellness for age 65+ 2016 Mammogram for age 45-75 09/29/2016 09/29/20 15, 09/18/2015, 11/22/2012 Hepatitis B series for 19+ ( 11 of 11 - Risk Dialysis Recombivax 3-dose series) 02/25/2021 02/26/2020, 01/22/2020, 01/23/2019, Additional history exists BMI (ht and wt on same day) for age 18+ 03/16/2023 03/16/2022, 04/10/2020, 12/27/2019, Additional history exists Depression screening for age 12+ 03/16/2023 03/16/2022, 03/14/2019, 03/12/2019, Additional history exists Lipids for age 45-75 03/12/2024 03/12/2019, 06/29/2016, 09/18/2015, Additional history exists COVID-19 vaccine series (2023- season) 2024 Influenza Vaccine (#1) 2025 10/13/2006, 2002 Tetanus booster 04/12/2032 04/12/2022, 09/23, 10/13/2006, Additional history exists Hepatitis C screening for ag e 18-79 Completed 08/05/2020 Pneumococcal series for age 50+ Completed 06/18/2024, 05/23/2018, 11/06/2017 Goals Goal Patient Goal Type Associated Problems Recent Progress Patient-Stated? Author BLOOD PRESSURE - MAINTAINS BP less than 140/90 Blood Pressure No Samir Rascon MD Medical Devices Implanted Type Area Sanitizer Device Identifier Shelf Expiration Date Model / Serial / Lot Screw Sm Joint 4x44mm Axsos Lock - [id number] Implanted:Qty: 1 on 04/12/2022 by Bairon Alejandre MD at [facility] Right: Ankle [employer] [id number] / / Screw Sm Joint 4x50mm Axsos Lock - [id number] Implanted:Qty: 1 on 04/12/2022 by Bairon Alejandre MD at [facility] Right: Ankle [employer] [id number] / / Plate Tib Rt 201mm 12hole Axsos3 Distal Med Implanted:Qty: 1 on 04/12/2022 by Bairon Alejandre MD at [facility] Right: Ankle [id number] / / Description:Plate Tib Rt 201 mm 12Hole Axsos3 Distal Med Screw Sm Joint 3.5x26mm Axsos Valentin Titnm - [id number] Implanted:Qty: 1 on 04/12/2022 by Bairon Alejandre MD at [facility] Right: Ankle [employer] [id number] / / Screw Sm Joint 3.5x28mm Axsos Valentin Titnm - [id number] Implanted:Qty: 1 on 04/12/2022 by Bairon Alejandre MD at [facility] Right: Ankle [employer] [id number] / / Screw Sm Joint 3.5x90mm Axsos Valentin Titnm Implanted:Qty: 1 on 04/12/2022 by Bairon Alejandre MD at [facility] Right: Ankle [id number] / / Description:SCREW SM JOINT 3 .5X90MM AXSOS VALENTIN TITNM Screw Sm Joint 4x26mm Axsos Lock - [id number] Implanted:Qty: 1 on 04/12/2022 by Bairon Alejandre MD at [facility] Right: Ankle [employer] [id number] / / Screw Sm Joint 4x30mm Axsos Lock - [id number] Implanted:Qty: 1 on 04/12/2022 by Bairon Alejandre MD at [facility] Right: Ankle [employer] [id number] / / Screw Sm Joint 4x36mm Axsos Lock - [id number] Implanted:Qty: 1 on 04/12/2022 by Bairon Alejandre MD at [facility] Right: Ankle [employer] [id number] / / Screw Sm Joint 5x35mm T2 Full Thrd Lock - [id number] Implanted:Qty: 1 on 05/04/2022 by Ab Nieto MD at [facility] Right: Tibia [employer] 02/19/2027 1896-5035S / / [id number] Screw Sm Joint 5x55mm T2 Full Thrd Lock - [id number] Implanted:Qty: 1 on 05/04/2022 by Ab Nieto MD at [facility] Right: Tibia [employer] 03/22/2026 1896-5055S / / [id number] Screw Sm Joint 5x37.5mm T2 Full Thrd Lock - [id number] Implanted:Qty: 1 on 05/04/2022 by Ab Nieto MD at [facility] Right: Tibia [employer] 05/22/2026 1896-5037S / / [id number] Screw Sm Joint 5x35mm T2 Full Thrd Lock - [id number] Implanted:Qty: 1 on 05/04/2022 by Ab Nieto MD at [facility] Right: Tibia [employer] 02/19/2027 1896-5035S / / [id number] Nail Ankle 11 X 300 Implanted:Qty: 1 on 05/04/2022 by Ab Nieto MD at [facility] Right: Tibia 12/20/2026 [id number] / / [id number] Description:NAIL ANKLE 11 X 300 Screw Compression T2 Ankle - [id number] Implanted:Qty: 1 on 05/04/2022 by Ab Nieto MD at [facility] Right: Tibia [employer] 12/20/2026 1818-0001S / / [id number] Tissue Matrix 3cc Flowable Bovine - [id number] Implanted:Qty: 1 on 07/12/2022 by Ab Nieto MD at [facility] [employer] Minimus SpineciFlash [employer] Farzana 08/22/2023 [id number] / / [id number] Drsg Biological 500mg Micromatrix - [id number] Implanted:Qty: 1 on 07/12/2022 by Ab Nieto MD at [facility] [employer] Minimus SpineciFlash [employer]ana 10/22/2023 [id number] / [id number] / Cmnt Bone 40g Simplex P Non Atb Mv - [id number] Implanted:Qty: 1 on 01/04/2023 by Bairon Alejandre MD at [facility] Right: Tibia [employer] 03/22/2025 6191-1-010 / / [id number] Karis 2 Bone Harvesting Kit 520mm Sterile Implanted:Qty: 1 on 07/05/2023 by Ab Nieto MD at [facility] Right: Tibia 09/21/2023 03.404.000 S / / [id number] Description:CHECKED DF 2.5mm Reaming Josias With Ball Tip/ 950mm Sterile Implanted:Qty: 1 on 07/05/2023 by Ab Nieto MD at [facility] Right: Tibia 12/20/2029 351.706S / / [id number] Description:CHECKED DF 14.5mm Reamer Head For Karis 2 Implanted:Qty: 1 on 07/05/2023 by Ab Nieto MD at [facility] Right: Tibia 10/22/2032 03.404.025 S / / [id number] Description:CHECKED DF 15.5mm Reamer Head For Karis 2 Implanted:Qty: 1 on 07/05/2023 by Ab Nieto MD at [facility] Right: Tibia 09/21/2032 03.404.027 S / / [id number] Description:CHECKED DF Cmnt Bone 40g Simplex P Non Atb Mv - [id number] Implanted:Qty: 1 on 07/10/2023 by Ab Nieto MD at [facility] Right: Leg [employer] 09/21/2025 6191-1-010 / / [id number] Description:NO STICKER Panta Nail 10 Mm X 240 Mm Implanted:Qty: 1 on 07/10/2023 by Ab Nieto MD at [facility] Right: Leg MCDONALD-1010-1 0240 / / Description: 07/11/23 Panta 5 Mm Fully Threaded Size 28 Implanted:Qty: 1 on 07/10/2023 by Ab Nieto MD at [facility] Right: Leg MCDONALD-1010-1 428NS / / Description: 07/11/23 Panta 5 Mm Fully Threaded Size 30 Implanted:Qty: 1 on 07/10/2023 by Ab Nieto MD at [facility] Right: Leg MCDONALD-010-14 30NS / / Description: 07/11/23 Panta 5 Mm Fully Threaded Size 54 Implanted:Qty: 1 on 07/10/2023 by Ab Nieto MD at [facility] Right: Leg MCDONALD-1010-1 454NS / / Description: 07/11/23 Bone Matrix 18cc Cerament Synth - [id number] Implanted:Qty: 1 on 07/10/2023 by Ab Nieto MD at [facility] Right: Leg [employer] 01/13/2026 [id number] / / [id number] Description:CHECKED Panta 5 Mm Partially Threaded Size 65 Implanted:Qty: 2 on 07/10/2023 by Ab Nieto MD at [facility] Right: Leg MCDONALD-1010-2 665NS / / Description: 07/11/23 Explanted Type Area Sanitizer Device Identifier Shelf Expiration Date Model / Serial / Lot K-Wire 9 Plain 0.062 Explanted:Qty: 4 on 04/12/2022 by Bairon Alejandre MD at [facility] Right: Ankle [id number] / / Description:K-WIRE 9 PLAIN 0.062 K-Wire [place] 10pk - [id number] Explanted:Qty: 3 on 04/12/2022 by Bairon Alejandre MD at [facility] Right: Ankle [employer] [id number] / / Explant Explanted:Qty: 1 on 05/04/2022 by Ab Nieto MD at [facility] Right: Ankle Description:PLATE, 7 SCREWS Explant Explanted:Qty: 1 on 01/04/2023 at [facility] Right: Tibia Description:4 SCREWS, 1 JOSIAS Procedures Procedure Name Priority Date/Time Associated Diagnosis Comments CT 2D RECONSTRUCTION Routine 02/11/2025 11:16 AM CDT Chronic osteomyelitis (HC) CT TIBIA FIBULA RIGHT WO Routine 02/11/2025 11:15 AM CDT Chronic osteomyelitis (HC) AEROBIC BACTERIAL CULTURE, STAIN Routine 01/30/2025 12:08 PM CDT Chronic osteomyelitis (HC) HEMOGLOBIN Routine 01/29/2025 7:48 AM CDT EXPOSURE (BBF) ANTI HCV STAT 08/05/2020 4:45 PM CDT LIPID PANEL W REFLEX MEASURED LDL Routine 03/12/2019 3:50 PM CDT Type 2 diabetes mellitus with stage 3 chronic kidney disease, without long-term current use of insulin (HC) XR FFDM MAMMO UNI ADDL VIEWS RIGHT (IA) Routine 09/29/2015 2:34 PM CAN STACKER Abnormal mammogram OCCULT BLOOD IFOBT STOOL Routine 05/08/2015 12:01 PM CDT Screening from Last 3 Months or Most Recently Relevant to Health Maintenance Results * CT 2D RECONSTRUCTION (02/11/2025 11:16 AM CDT) Anatomical Region Laterality Modality Computed Tomogra phy 02/11/2025 11:4 8 AM CDT Impressions 02/11/2025 12:15 PM CDT 1. Soft tissue wound involving the anteromedial distal lower leg with infiltration of the underlying soft tissues but no associated fluid collection. 2. Small area of focal sclerosis involving the anteromedial distal tibial metaphysis with a tiny focus of intraosseous gas. This is adjacent to the wound and may reflect a small area of chronic osteomyelitis. 3. Status post instrumentation of the tibia, talus and calcaneus. Hardware intact. 4. Sequelae of remote fracture deformity of the navicular bone. Please note that all CT scans at this facility use dose modulation, iterative reconstruction, and/or weight-based dosing when appropriate to reduce radiation dose to as low as reasonably achievable. Dictated by Moises Parks MD @ 02/11/2025 12:14:20 PM (Electronically Signed) Narrative 02/11/2025 12:15 PM CDT For Patients: As a result of the Cures Act, medical imaging exams and procedure reports are released immediately into your electronic medical record. You may view this report before your referring provider. If you have questions, please contact your health care provider. INDICATION: Chronic osteomyelitis. Draining sinus tract. TECHNIQUE: Noncontrast CT of the right tibia and fibula/lower leg. Axial reconstructed and sagittal and coronal reformatted images were created. COMPARISON: CT from 06/01/2023. Radiographs from 07/09/2024. FINDINGS: Status post instrumentation of the calcaneus, talus and tibia with prior fixation of a distal tibial metaphyseal fracture. The distal fracture appears healed with osseous deformity. No hardware loosening. Bones appear diffusely osteopenic. There is an apparent soft tissue wound involving the anterior medial aspect of the distal lower leg with infiltration of underlying subcutaneous tissues but no associated fluid collection. There is an area of focal bone sclerosis involving the anterior medial aspect of the distal tibial metaphysis with a small focus of intraosseous gas noted on axial image number 395 series 4. This is present close to the patient`s wound. Consider a small area of chronic osteomyelitis given the presence of sclerosis. There is atrophy of the lower leg musculature. Degenerative changes of the right knee. Small amount of joint fluid. Sequelae of remote navicular bone fracture with decreased anterior/posterior dimension of the bone. Procedure Note Moises Parks MD - 02/11/2025 For Patients: As a result of the Cures Act, medical imagingexams and procedure reports are released immediately into your electronicmedical record. You may view this report before your referring provider.If you have questions, please contact your health care provider. INDICATION: Chronic osteomyelitis. Draining sinus tract. TECHNIQUE: Noncontrast CT of the right tibia and fibula/lower leg. Axialreconstructed and sagittal and coronal reformatted images were created. COMPARISON: CT from 06/01/2023. Radiographs from 07/09/2024. FINDINGS: Status post instrumentation of the calcaneus, talus and tibia with priorfixation of a distal tibial metaphyseal fracture. The distal fractureappears healed with osseous deformity. No hardware loosening. Bones appear diffusely osteopenic. There is an apparent soft tissue wound involving the anterior medialaspect of the distal lower leg with infiltration of underlyingsubcutaneous tissues but no associated fluid collection. There is an areaof focal bone sclerosis involving the anterior medial aspect of the distaltibial metaphysis with a small focus of intraosseous gas noted on axialimage number 395 series 4. This is present close to the patient`s wound.Consider a small area of chronic osteomyelitis given the presence ofsclerosis. There is atrophy of the lower leg musculature. Degenerative changes of theright knee. Small amount of joint fluid. Sequelae of remote navicular bone fracture with decreasedanterior/posterior dimension of the bone. IMPRESSION: 1. Soft tissue wound involving the anteromedial distal lower leg withinfiltration of the underlying soft tissues but no associated fluidcollection. 2. Small area of focal sclerosis involving the anteromedial distal tibialmetaphysis with a tiny focus of intraosseous gas. This is adjacent to thewound and may reflect a small area of chronic osteomyelitis. 3. Status post instrumentation of the tibia, talus and calcaneus. Hardwareintact. 4. Sequelae of remote fracture deformity of the navicular bone. Please note that all CT scans at this facility use dose modulation,iterative reconstruction, and/or weight-based dosing when appropriate toreduce radiation dose to as low as reasonably achievable. Dictated by Moises Parks MD @ 02/11/2025 12:14:20 PM (Electronically Signed) us Julia Ramírez MD CT Final Result * CT TIBIA FIBULA RIGHT WO (02/11/2025 11:15 AM CDT) Anatomical Region Laterality Modality LEG R Computed Tomogra phy 02/11/2025 12:3 3 PM CDT Impressions 02/11/2025 12:33 PM CDT 1. Soft tissue wound involving the anteromedial distal lower leg with infiltration of the underlying soft tissues but no associated fluid collection. 2. Small area of focal sclerosis involving the anteromedial distal tibial metaphysis with a tiny focus of intraosseous gas. This is adjacent to the wound and may reflect a small area of chronic osteomyelitis. 3. Status post instrumentation of the tibia, talus and calcaneus. Hardware intact. 4. Sequelae of remote fracture deformity of the navicular bone. (Electronically Signed) Narrative 02/11/2025 12:33 PM CDT For Patients: As a result of the Century Cures Act, medical imaging exams and procedure reports are released immediately into your electronic medical record. You may view this report before your referring provider. If you have questions, please contact your health care provider. INDICATION: Chronic osteomyelitis. Draining sinus tract. TECHNIQUE: Noncontrast CT of the right tibia and fibula/lower leg. Axial reconstructed and sagittal and coronal reformatted images were created. COMPARISON: CT from 06/01/2023. Radiographs from 07/09/2024. FINDINGS: Status post instrumentation of the calcaneus, talus and tibia with prior fixation of a distal tibial metaphyseal fracture. The distal fracture appears healed with osseous deformity. No hardware loosening. Bones appear diffusely osteopenic. There is an apparent soft tissue wound involving the anterior medial aspect of the distal lower leg with infiltration of underlying subcutaneous tissues but no associated fluid collection. There is an area of focal bone sclerosis involving the anterior medial aspect of the distal tibial metaphysis with a small focus of intraosseous gas noted on axial image number 395 series 4. This is present close to the patient`s wound. Consider a small area of chronic osteomyelitis given the presence of sclerosis. There is atrophy of the lower leg musculature. Degenerative changes of the right knee. Small amount of joint fluid. Sequelae of remote navicular bone fracture with decreased anterior/posterior dimension of the bone. Procedure Note Moises Parks MD - 02/11/2025 For Patients: As a result of the Cures Act, medical imagingexams and procedure reports are released immediately into your electronicmedical record. You may view this report before your referring provider.If you have questions, please contact your health care provider. INDICATION: Chronic osteomyelitis. Draining sinus tract. TECHNIQUE: Noncontrast CT of the right tibia and fibula/lower leg. Axialreconstructed and sagittal and coronal reformatted images were created. COMPARISON: CT from 06/01/2023. Radiographs from 07/09/2024. FINDINGS: Status post instrumentation of the calcaneus, talus and tibia with priorfixation of a distal tibial metaphyseal fracture. The distal fractureappears healed with osseous deformity. No hardware loosening. Bones appear diffusely osteopenic. There is an apparent soft tissue wound involving the anterior medialaspect of the distal lower leg with infiltration of underlyingsubcutaneous tissues but no associated fluid collection. There is an areaof focal bone sclerosis involving the anterior medial aspect of the distaltibial metaphysis with a small focus of intraosseous gas noted on axialimage number 395 series 4. This is present close to the patient`s wound.Consider a small area of chronic osteomyelitis given the presence ofsclerosis. There is atrophy of the lower leg musculature. Degenerative changes of theright knee. Small amount of joint fluid. Sequelae of remote navicular bone fracture with decreasedanterior/posterior dimension of the bone. IMPRESSION: 1. Soft tissue wound involving the anteromedial distal lower leg withinfiltration of the underlying soft tissues but no associated fluidcollection. 2. Small area of focal sclerosis involving the anteromedial distal tibialmetaphysis with a tiny focus of intraosseous gas. This is adjacent to thewound and may reflect a small area of chronic osteomyelitis. 3. Status post instrumentation of the tibia, talus and calcaneus. Hardwareintact. 4. Sequelae of remote fracture deformity of the navicular bone. (Electronically Signed) Julia Ramírez MD CT Final Result * (ABNORMAL) AEROBIC BACTERIAL CULTURE, STAIN (01/30/2025 12:08 PM CDT) CULTURE RESULT(A) 02/02/2025 9:36 AM CDT [facility] CULTURE 4+ Proteus mirabilis 02/02/2025 9:36 AM CDT [facility] GRAM STAIN No PMNs 02/02/2025 9:36 AM CDT [facility] GRAM STAIN 1+ RBCs 02/02/2025 9:36 AM CDT [facility] GRAM STAIN No Epithelial cells 02/02/2025 9:36 AM CDT [facility] GRAM STAIN 3+ Gram Negative Bacilli 02/02/2025 9:36 AM CDT [facility] Other (Other) Non-Blood / Unknown 01/30/2025 12:08 PM CDT 01/30/2025 12:08 PM CDT Narrative Organism Antibiotic Method Susceptibility Proteus mirabilis TRIMETHOPRIM/SULF <=1/19: S Proteus mirabilis AMPICILLIN 16: I Proteus mirabilis CEFAZOLIN 8: R Proteus mirabilis GENTAMICIN <=1: S Proteus mirabilis CEFTRIAXONE <=0.25: S Proteus mirabilis CEFTAZIDIME <=0.5: S Proteus mirabilis LEVOFLOXACIN >=8: R Proteus mirabilis CIPROFLOXACIN >=4: R Proteus mirabilis PIPERACILLIN/TAZO <=4: S Proteus mirabilis AMPICILLIN/SULBACTAM 4: S Proteus mirabilis CEFEPIME <=0.12: S Proteus mirabilis MEROPENEM 1: S Julia Ramírez MD MICROBIOLOGY Final Result [facility] [address] [place] [address], [place] * (ABNORMAL) HEMOGLOBIN (01/29/2025 7:48 AM CDT) Pathologist [facility] HEMOGLOBIN 11.2(L) 12.0 - 16.0 g/dL 01/29/2025 10:03 AM CDT [facility] MCV 107(H) 80 - 100 fL 01/29/2025 10:03 AM CDT [facility] Blood BLOOD SPECIMEN / Unknown Butterfly / Unknown 01/29/2025 7:48 AM CDT 01/29/2025 9:54 AM CDT Doctor Unknown HEMATOLOGY Final Result [facility] [address] [place] [address] * Patient Source ANTI HCV (08/05/2020 4:45 PM CDT) Pathologist [facility] HEPATITIS C ANTIBODY Non-React luis Non-React luis 08/06/2020 12:46 PM CDT [facility] Comment:Antibodies to HCV no t detected; does not exclude the possibility of exposure to HCV. Blood BLOOD SPECIMEN / Unknown Line/Port / Unknown 08/05/2020 4:45 PM CDT 08/05/2020 4:53 PM CDT Ne Berg MD SEND OUTS Final Result [facility] [address] [place] [address], [place] * (ABNORMAL) LIPID PANEL W REFLEX MEASURED LDL (03/12/2019 3:50 PM CDT) Pathologist [facility] CHOLESTEROL,TOTAL 217(H) 100 - 199 mg/dL 03/12/2019 11:09 PM CDT [facility] TRIGLYCERIDES 221(H) <150 mg/dL 03/12/2019 11:09 PM CDT [facility] HDL CHOLESTEROL 51 >40 mg/dL 9 11:09 PM CDT [facility] NON-HDL CHOLESTEROL 166(H) <145 mg/dl 03/12/2019 11:09 PM CDT [facility] CHOL/HDL RATIO 4.25 <4.50 03/12/2019 11:09 PM CDT [facility] LDL CHOLESTEROL 122 <=130 mg/dL 03/12/2019 11:09 PM CDT [facility] PROVIDER ORDERED STATUS RANDOM 03/12/2019 11:09 PM CDT [facility] Blood BLOOD SPECIMEN / Unknown Butterfly / Unknown 03/12/2019 3:50 PM CDT 03/12/2019 3:50 PM CDT us Samir Rascon MD CHEMISTRY Final Re sult [facility] [address] [place] [address], [place] * XR FFDM MAMMO UNI ADDL VIEWS RIGHT (09/29/2015 2:34 PM CAN STACKER) Anatomical Region Laterality Modality BREASTS, Breast Right Right Mammograph y Impressions 09/29/2015 3:10 PM CAN STACKER BI-RADS Category 4: Suspicious RECOMMENDATIONS: Stereotactic biopsy. NOTE: I discussed today's imaging findings with the patient. The biopsy will be scheduled through the clinic transitional care nurse prior to the patient leaving the clinic today. Zachary Travis D.O. Diagnostic Radiologist [email or web address] HA/denzel / Narrative 09/29/2015 3:10 PM CAN STACKER ADDITIONAL VIEWS OF THE RIGHT BREAST, 09/29/2015 [...] cluster measures approximately 7 mm in diameter. Samir Rascon MD MAMMO Final Re sult * (ABNORMAL) OCCULT BLOOD IFOBT STOOL (05/08/2015 12:01 PM CDT) STOOL BLOOD ,IFOBT Positive( A) Negative, Invalid 05/08/2015 12:11 PM CDT [facility] Stool specimen (specimen) STOOL SPECIMEN / Unknown Non-Blood / Unknown 05/08/2015 12:01 PM CDT 05/08/2015 12:02 PM CDT [facility] Final R esult [facility] [address] [place] [address], [place] [phone] from Last 3 Months or Most Recently Relevant to Health Maintenance Insurance [facility] MEDICARE PART A HB ONLY MEDICARE PART B HB ONLY BLUE ADVANTAGE [place] BLUE [place] ONLY [place] BLUE PB ONLY MEDICARE PPS Advance Directives Documents on File Type Date Recorded Patient Glove Printer Expl anation POLST 12/11/2024 POLST 12/11/2024 Healthcare Directive 02/13/2019 1:55 PM * Full Code (Latest Code Status on File) Date Activated Date Inactivated Comments 01/06/2025 12:33 AM 01/09/2025 6:06 PM Question Answer Comments Code Status Discussion: Reviewed Preferences * Full Code Date Activated Date Inactivated Comments 11/29/2024 7:30 PM 12/04/2024 5:02 PM Question Answer Comments Code Status Discussion: Reviewed Preferences * Full Code Date Activated Date Inactivated Comments 06/12/2024 4:40 [...] to Assess Preferences, Provider to review later Care Teams Veneer Sawyer Relationship Specialty Start Date End Date Arden Joyner MD [address] [place] [address] PCP - General Family Practice 06/12/24 [facility] 05/17/19
--- OUTSIDE RECORDS SUMMARY | 2025-04-25 14:49 | XMS_ITS | Referral Summary ---
Author Organization [facility] Address [address] [place] [address] Care Team Providers Care Lending Consultant Name Role Phone Samir Rascon MD Primary Care Provider Ronit courtney Allergies Active Allergy Reactions Criticality Noted Date Comments Acetaminophen Nausea 03/19/2014 Aspirin Vomiting 03/19/2014 Astemizole 06/15/2021 Other reaction(s): Flushing Benzalkonium [place] Nausea 06/15/2021 Brimonidine 06/15/2021 Other reaction(s): Nephritis Cinacalcet Hcl Dermatitis,Hives 02/16/2021 Hungry Horse Rash 06/15/2021 Cranberry Swelling, lips/tongue High 07/05/2017 Flu Vac [id number](36mo,Up)(Pf) Hives Medium 05/28/2021 Hexylnicotinate Nausea 06/15/2021 Hydrocodone-Acetaminophen Other High 01/22/2018 Other reaction(s): Flushing Pt became itchy around the mouth and then violently threw up after taking 1 [place] post surgery Ketorolac 03/08/2007 Other reaction(s): Renal [...] Bleeding GI bleeding Oxycodone Vomiting 03/07/2007 Oxycodone Uge-Ebkxoupvy-Mci Nausea 06/15/2021 Oxycodone-Aspirin Vomiting 01/11/2022 Pentazocine Nausea,Vomiting [...] (end stage renal disease) Hypertension, renovascular Immunizations Immunization Administration Dates Next Due Hep B Adult [...] on file 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 Gender Identity Not on file Sexual Orientation [...] 01/13/2022 1:19 PM CDT Plan of Treatment Not on file Medical Devices Implanted Type Area Mcat Tutor Device Identifier Shelf Expiration Date Model / Serial / Lot Cath Duraflow 24cm 15.5fr - [id number] Implanted:Qty: 1 on 01/14/2022 by Prosper King APRN, BOWLING BALL GRADER at [facility] [employer] 03/22/2024 [id number] / / [id number] Cath Hemodialysis Schn Xl 20cm - [id number] Implanted:Qty: 1 on 01/13/2022 by Domo Mckeon MD at [facility] Temp Dialysis Catheters [employer] 02/26/2026 [id number] / / [id number] Insurance [facility] BLUE MEDICARE PART A & B Advance Directives For more information, please contact: [phone] * Full Code (Latest Code Status on File) Date Activated Date Inactivated Comments 01/13/2022 1:52 PM 01/15/2022 3:03 AM Question Answer Comments How was code status determined? Previous [facility] Teams Lending Consultant Relationship Specialty Start Date End Date Samir Rascon MD PCP - General 01/04/22
--- OUTSIDE RECORDS SUMMARY | 2025-04-25 14:49 | XMS_ITS | Encounter Summary ---
Author Organization [facility] Address [address] [place] [address] Care Team Providers Care Dryerman/Woman Name Role Phone Elsewhere, Pcp Primary Care Provider Unavailabl e Encounter Details Date Type Department Care Team (Latest Contact Info) Description 03/31/2025 Clinical Communication Division of staple laster in [place], [place] [address] [place] [address] Ori Murray M.D., D.M.D. [address] [place] [address] Social History Tobacco Use Types Packs/Day Years Used Date Smoking Tobacco: Former Smokeless Tobacco: Never Alcohol Use Standard Drinks/Week Comments Not Currently 0 (1 standard drink = 0.6 oz pur e alcohol) [facility] Utilities Answer Date Recorded In the past 12 months has e electric, gas, oil, or water company [...] your living situation today? 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 [address] [place] [address] documented as of this encounter Visit Diagnoses Not on filedocumented in this encounter Care Teams Dryerman/Woman Relationship Specialty Start Date End Date Elsewhere, Pcp PCP - General Internal Medicine 12/06/24 documented as of this encounter
--- OUTSIDE RECORDS SUMMARY | 2025-04-25 14:49 | XMS_ITS ---
Author Organization [facility] Address [address] [place] [address] Care Team Providers Care Medical Secretary Teacher Name Role Phone Elsewhere, Pcp Primary Care Provider Unavailabl e Procedures Procedure Name Priority Date/Time Associated Diagnosis Comments OMS PANOREX Routine 04/10/2025 2:09 PM CDT [facility] BASIC METABOLIC PANEL, S/P Routine 07/26/2024 3:29 AM CDT from Last 3 Months or Most Recently Relevant to Health Maintenance Allergies Active Allergy Reactions Criticality Noted Date Comments Aspirin Other (see comments) 12/05/2024 Per SNF Astemizole Rash 06/15/2021 Other reaction(s): Flushing Benzalkonium [place] Nausea And Vomiting,Nausea Only 06/15/2021 Brimonidine Acute Interstitial Nephritis,Other (see comments) High 06/15/2021 Other reaction(s): Nephritis Cinacalcet Hives only, no other systemic symptoms,Hives (Reselect Reaction) 02/16/2021 [place]ro[place] Rash 06/15/2021 Cranberry Angioedema,Edema (Reselect Reaction),Edema, suggestive of allergic reaction, i.e., lip, tongue, or throat swelling,Rash High 08/13/2010 Propoxyphene N-Acetaminophen GI intolerance 07/25/2024 Flu Vac [id number](36mo,Up)(Pf) Hives (Reselect Reaction) Medium 07/25/2024 Hexylnicotinate Nausea And Vomiting,Nausea Only 06/15/2021 Hydrocodone-Acetaminoph en Rash High 01/22/2018 Pt became itchy around the mouth and then violently threw up after taking 1 Preston post surgery Other reaction(s): Flushing Pt became itchy around the mouth and then violently threw up after taking 1 Preston post surgery Iodinated Contrast Media Hives with [...] Other reaction(s): Itching Levothyroxine Other (see comments) 12/05/2024 Per SNF Lisinopril Renal Failure High 03/07/2007 Other reaction(s): Renal Failure Methacholine GI bleeding 06/15/2021 Other reaction(s): GI Bleeding Morphine GI intolerance,Nausea And Vomiting,Nausea Only 11/08/2012 Naproxen Other (see comments) 12/05/2024 Per SNF Oxycodone Other (see comments) 12/05/2024 Per SNF Pentazocine Nausea And Vomiting,Nausea Only,GI intolerance 08/13/2010 Percodan [place] Nausea And Vomiting,GI intolerance 08/13/2010 Propoxyphene Nausea And Vomiting,Nausea Only,GI intolerance 03/19/2014 Quinidine Other (see comments),Rash,GI intolerance 08/13/2010 hospitalized Other reaction(s): Rash, Fever, Vomiting, Skin Rash Other reaction(s): Fever hospitalized Other reaction(s): Rash, Fever, Vomiting, Skin Rash Succinylcholine Itching 06/15/2021 Sulfa (Sulfonamide Antibiotics) Rash,Other (see comments) 11/08/2012 Other reaction(s): Rash, Skin Rash Talwin Compound Other (see comments) 12/05/2024 Per SNF Medications acetaminophen (TylenoL) 500 mg tablet Take [...] day before morning and evening meals. Active B complex-vitamin C-FA (Triphrocaps) 1 mg capsule Take 1 capsule by mouth every evening. 5 Active fluticasone propion-salmeter oL 500-50 mcg/dose diskus inhaler Inhale 1 puff every 12 (twelve) hours. Active oxyCODONE (Roxicodone) 5 mg immediate release tablet Take 5 mg by mouth 2 (two) times a day. Active sucroferric oxyhydroxide (Velphoro) 500 mg (2500 mg sucroferric oxyhydroxide) chewable tablet Chew 500 mg 3 (three) times a day with meals. 4 Active bisacodyL 5 mg tablet Take 5 mg by mouth at bedtime as needed. 5 Active DME Bi-level PAP Act luis AMMONIUM LACTATE TOP Apply 1 Application topically 2 (two) times a day. Apply to Torso, arms and legs. Active DME Oxygen Inhale 2-5 L continuously. 2 LPM continuous Increase to 5 LPM when on BiPap Do not wean Active mineral oil-hydrophil petrolat ointment, AQUAPHOR, Apply topically as needed for irritation. Apply to groin. Active oxyCODONE (Roxicodone) 5 mg immediate release tabletIndication s:Acute Pain Exception Take 1 tablet (5 mg total) by mouth every 4 (four) hours as needed for pain Indication: Acute Pain Exception. 5 Active amoxicillin (AmoxiL) 500 mg capsuleIndicatio ns:[facility] Take 1 capsule (500 mg total) by mouth 3 (three) times a day for 10 days. 30 capsule 5 04/27/20 25 Active oxyCODONE (Roxicodone) 5 mg immediate release tabletIndication s:Acute Pain Take 0.5-1 tablets (2.5-5 mg total) by mouth every 4 (four) hours as needed for severe pain or score 7-10 of 10 Indication: Acute Pain. 8 tablet 5 Active Active Problems Problem Noted Date Diagnosed [...] 08/01/2009 Overview (07/18/2024): YUNIEL and cardioversion 07/31/2009 Immunizations Immunization Administration Dates Next Due HepB Adult 02/26/2020,,01/23/2019,2018,09/26/2018,08/29/2018,12/27/2017,1 12/10/2016,09/06/2017,08/09/2017 Influenza, Seasonal, Injectable 10/13/2006,08/25 PCV13 05/23/2018 PCV20 06/18/2024 PPSV23 11/06/2017 Td Preservative Free (TENIVA C, DECAVAC) 10/13/2006 Tdap 04/12/2022,10/13/2006 Social History Tobacco Use Types Packs/Day Years Used Date Smoking Tobacco: Former Smokeless Tobacco: Never Tobacco Cessation:Counseling Given: Not Answered Alcohol Use Standard Drinks/Week Comments Not Currently 0 (1 standard drink = 0.6 oz pur e alcohol) [facility] Utilities Answer Date Recorded In [...] your living situation today? I have a [facility] place to live 08/24/2024 Comments No Sex and Gender Information Value Date Recorded Sex Assigned at Female 08/24/2024 1:36 PM CDT Legal Sex Female 11:47 AM BODY MAKER Gender Identity Female 08/24/2024 1:36 PM CDT Sexual Orientation Straight 08/24/2024 1: 36 PM CDT Last Filed Vital Signs Vital Sign Reading Time Taken Comments Blood Pressure 115/80 04/10/2025 2:43 PM CDT Pulse 93 04/10/2025 3:03 PM CDT Temperature 36.1 C (96.9 F) 12/06/2024 7:40 AM BODY MAKER Respiratory Rate 16 12/06/2024 7:40 AM BODY MAKER Oxygen Saturation 99% 04/10/2025 3:03 PM CDT Inhaled Oxygen Concentration - - Weight 111 kg (245 lb) 12/06/2024 7:40 AM BODY MAKER Height 157.5 cm (5' 2) 07/25/2024 2:09 PM CDT Body Mass Index 44.81 07/25/2024 2:09 PM CDT Results * OMS Panorex (04/10/2025 2:09 PM CDT) Dionicio Stewart D.D.SZa PROCEDURE/MINOR SURGICA L ORDERABLES Final Result * (ABNORMAL) Basic Metabolic Panel (07/26/2024 3:29 [...] D.D.S. LAB BLOOD ADD-ON Keri l Result [facility] [address] [place] [address], [facility] DTL [facility] [address] [place] [address] from Last 3 Months or Most Recently Relevant to Health Maintenance
--- OUTSIDE RECORDS SUMMARY | 2025-04-25 14:49 | XMS_ITS | Encounter Summary ---
Author Organization [facility] Address [address] [place] [address] Care Team Providers Care Delimer Name Role Phone Elsewhere, Pcp Primary Care Provider Unavailabl e Encounter Details Date Type Department Care Team (Late st Contact Info) Description 04/17/2025 Orders Only Division of trimmer operator in [place], [place] [address] [place] [address] Melonie Clayton M.D., D.M.D. [address] [place] [phone] [facility] (Primary Dx) Social History Tobacco Use Types Packs/Day Years Used Date Smoking Tobacco: Former Smokeless Tobacco: Never Alcohol Use Standard Drinks/Week Comments Not Currently 0 (1 standard drink = 0.6 oz pur e alcohol) [facility] Utilities Answer Date Recorded In the past 12 months has e [employer], gas, oil, or water company threatened to [...] your living situation today? 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 [address] [place] [address] documented as of this encounter Visit Diagnoses Diagnosis [facility]- Primary documented in this encounter Care Teams Delimer Relationship Specialty Start Date End Date Elsewhere, Pcp PCP - General Internal Medicine 12/06/24 documented as of this encounter
--- OUTSIDE RECORDS SUMMARY | 2025-04-25 14:49 | XMS_ITS | Clinical Summary ---
Author Organization [facility] Address [address] [place] [address] Care Team Providers Care Publishing Editor Name Role Phone Samir Rascon MD Primary Care Provider Ronit courtney Allergies Active Allergy Reactions Criticality Noted Date Comments Acetaminophen Nausea 03/19/2014 Aspirin Vomiting 03/19/2014 Astemizole 06/15/2021 Other reaction(s): Flushing Benzalkonium [place] Nausea 06/15/2021 Brimonidine 06/15/2021 Other reaction(s): Nephritis Cinacalcet Hcl Dermatitis,Hives 02/16/2021 [place] Rash 06/15/2021 Cranberry Swelling, lips/tongue High 07/05/2017 Flu Vac [id number](36mo,Up)(Pf) Hives Medium 05/28/2021 Hexylnicotinate Nausea 06/15/2021 Hydrocodone-Acetaminophen Other High 01/22/2018 Other reaction(s): Flushing Pt became itchy around the mouth and then violently threw up after taking 1 [place] post surgery Ketorolac 03/08/2007 Other reaction(s): Renal [...] Bleeding GI bleeding Oxycodone Vomiting 03/07/2007 Oxycodone Tla-[id number] Nausea 06/15/2021 Oxycodone-Aspirin Vomiting 01/11/2022 Pentazocine Nausea,Vomiting [...] on file Legal Sex Female 1:41 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 Gender Identity Not on file Sexual Orientation [...] 1-dose series) 2011 Adult Tetanus Booster 10/13/2016 10/13/2006 , 10/13/2006 Mammogram Screening 09/29/2017 09/29/2015, 09/18/2015 COVID-19 Vaccine (2023-2 5 season) 2024 Influenza Vaccine (#1) 2025 Pneumococcal 50+ Years Completed 8, 11/06/2017 Meningococcal B Vaccine Aged Out No l onger eligible based on patient's age to complete this topic Medical Devices Implanted Type Area Podiatrist Assistant Device Identifier Shelf Expiration Date Model / Serial / Lot Cath Duraflow 24cm 15.5fr - [id number] Implanted:Qty: 1 on 01/14/2022 by Prosper King APRN, ROOM ATTENDANTS at [facility] [employer] 03/22/2024 [id number] / / [id number] Cath Hemodialysis Schn Xl 20cm - [id number] Implanted:Qty: 1 on 01/13/2022 by Domo Mckeon MD at [facility] Temp Dialysis Catheters [employer] 02/26/2026 [id number] / / [id number] Insurance BCBS [place] BLUE MEDICARE PART A & B Advance Directives For more information, please contact: [phone] * Full Code (Latest Code Status on File) Date Activated Date Inactivated Comments 01/13/2022 1:52 PM 01/15/2022 3:03 AM Question Answer Comments How was code status determined? [facility] Care Teams Publishing Editor Relationship Specialty Start Date End Date Samir Rascon MD PCP - General 01/04/22
--- OUTSIDE RECORDS SUMMARY | 2025-04-25 14:49 | XMS_ITS | Clinical Summary ---
Author Organization [facility] Address [address] [place] [address] Care Team Providers Care Clearance Representative Name Role Phone Elsewhere, Pcp Primary Care Provider Unavailabl e Source Comments Patient records contain information from all sites at [facility]. For routine questions regarding patient records, call [phone] during business hours, M-F 8:00 AM - 5:00 PM Central Time. Record requests for emergency care only can be directed to [phone] at any time.[facility] Allergies Active Allergy Reactions Criticality Noted Date Comments Aspirin Other (see comments) 12/05/2024 Per SNF Astemizole Rash 06/15/2021 Other reaction(s): Flushing Benzalkonium [place] Nausea And Vomiting,Nausea Only 06/15/2021 Brimonidine Acute Interstitial Nephritis,Other (see comments) High 06/15/2021 Other reaction(s): Nephritis Cinacalcet Hives only, no other systemic symptoms,Hives (Reselect Reaction) 02/16/2021 [place] Rash 06/15/2021 Cranberry Angioedema,Edema (Reselect Reaction),Edema, suggestive of allergic reaction, i.e., lip, tongue, or throat swelling,Rash High 08/13/2010 Propoxyphene N-Acetaminophen GI intolerance 07/25/2024 Flu Vac [id number](36mo,Up)(Pf) Hives (Reselect Reaction) Medium 07/25/2024 Hexylnicotinate Nausea And Vomiting,Nausea Only 06/15/2021 Hydrocodone-Acetaminoph en Rash High 01/22/2018 Pt became itchy around the mouth and then violently threw up after taking 1 [place] post surgery Other reaction(s): Flushing Pt became itchy around the mouth and then violently threw up after taking 1 [place] post surgery Iodinated Contrast Media Hives with [...] Talwin Compound Other (see comments) 12/05/2024 Per [facility] Medications acetaminophen (TylenoL) 500 mg tablet Take [...] Encounters Date Type Department Care Team Description 04/18/2025 Orders Only Division of hydrologic engineer in [place], [place] [address] [place] [address] Sebastien Bo M.D., D.D.S. 04/17/2025 Orders Only Division of hydrologic engineer in [place], [place] [address] [place] [address] Melonie Clayton M.D., D.M.D. [facility] (Primary Dx) 04/17/2025 Orders Only Division of hydrologic engineer in [place], [place] [address] [place] [address] Bijal Ponce L.D.A. 04/11/2025 Documentation Division of hydrologic engineer in [place], [place] [address] [place] [phone] Anastacio Weinstein M.D., DCalvin.S. 04/11/2025 Clinical Communication Division of hydrologic engineer in [place], [place] [address] [place] [phone] Dionicio Stewart D.D.S. 04/10/2025 1:48 PM CDT - 04/10/2025 11:59 PM CDT Hospital Encounter Division of hydrologic engineer in [place], [place] [address] [place] [phone] Dionicio Stewart D.D.S. Discharge Disposition: Home or Self Care 04/10/2025 1:47 PM CDT Hospital Encounter Division of hydrologic engineer in [place], [place] [address] [place] [phone] Ori Murray M.D., D.M.D. Dionicio Stewart D.D.S. [facility] (Primary Dx) Discharge Disposition: Home or Self Care 03/31/2025 Clinical Communication Division of hydrologic engineer in [place], [place] [address] [place] [address] Ori Murray M.D., D.M.D. 02/27/2025 Orders Only Division of hydrologic engineer in [place], [place] [address] [place] [phone] Ori Murray M.D., D.M.D. from Last 3 Months Immunizations Immunization Administration Dates Next Due HepB Adult 02/26/2020, 0,01/23/2019,2018,09/26/2018,08/29/2018,12/27/2017,1 12/10/2016,09/06/2017,08/09/2017 Influenza, Seasonal, Injectable 10/13/2006,08/25 PCV13 05/23/2018 PCV20 06/18/2024 PPSV23 11/06/2017 Td Preservative Free (TENIVA C, DECAVAC) 10/13/2006 Tdap 04/12/2022,10/13/2006 Social History Tobacco Use Types Packs/Day Years Used Date Smoking Tobacco: Former Smokeless Tobacco: Never Tobacco Cessation:Counseling Given: Not Answered Alcohol Use Standard Drinks/Week Comments Not Currently 0 (1 standard drink = 0.6 oz pur e alcohol) [facility] Utilities Answer Date Recorded In the past 12 months has th e [employer], gas, oil, or water [employer] threatened to shut off services in your [...] your living situation today? 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 Gender Identity Female 08/24/2024 1:36 PM CDT Sexual Orientation Straight 08/24/2024 1: 36 PM CDT Last Filed Vital Signs Vital Sign Reading Time Taken Comments Blood Pressure 115/80 04/10/2025 2:43 PM CDT Pulse 93 04/10/2025 3:03 PM CDT Temperature 36.1 C (96.9 F) 12/06/2024 7:40 AM MINGLE OPERATOR Respiratory Rate 16 12/06/2024 7:40 AM MINGLE OPERATOR Oxygen Saturation 99% 04/10/2025 3:03 PM CDT Inhaled Oxygen Concentration - - Weight 111 kg (245 lb) 12/06/2024 7:40 AM MINGLE OPERATOR Height 157.5 cm (5' 2) 07/25/2024 2:09 PM CDT Body Mass Index 44.81 07/25/2024 2:09 PM CDT Plan of Treatment Upcoming Encounters Date Type Department Care Team (Late st Contact Info) Description 07/15/2025 3:40 PM CDT Appointment Division of hydrologic engineer in [place], [place] [address] [place] [address] Ori Murray M.D., D.M.D. [address] [place] [address] Health Maintenance Due Date Last Done Comments Bone Density Scan (Osteoporosis Screen) 1951 CT Colonography 1951 Cologuard 1950 Colonoscopy 1950 Colorectal Cancer Screening 1951 Diabetic Office Visit with Foot Exam 1951 Dilated Eye Exam 1951 FIT 1951 Hepatitis C Screening 1950 Mammogram 1951 Urine Albumin 1951 Zoster Vaccines (1 of 2) 2001 RSV vaccine - (32-36 weeks) or 60+ years (1 - Risk 60-74 years 1-dose series) 2011 Lipid (Cholesterol) Screening 03/12/2020 03/12/2019 Hemoglobin A1C 01/25/2024 07/26/2023, 02/21, 10/24/2020, Additional history exists COVID-19 Vaccine ( season) 2024 Depression Screening (Annual PHQ-2) 10/23/2024 Fall Risk Screen (Annual) 10/23/2024 Influenza Vaccine (#1) 2025 10/13/2006, 2002 Office Visit for Blood Pressure Check / Re-check 12/06/2025 12/06/2024 Creatinine Level (Kidney Function Test) 01/05/2026 01/05/2025, 01/04/2025, 12/02/2024, Additional history exists DTaP,Tdap,and Td Vaccines (3 - Td or Tdap) 04/12/2032 04/12/2022, 10/13/2006, 10/13/2006 Hepatitis B Vaccines Completed 02/26/2020, 01/22/2020, 01/23/2019, Additional history exists Hepatitis B Screening Discontinued 06/13/2024 , 07/07/2022, 05/13/2022, Additional history exists Pneumococcal vaccine (50+ years) [...] Recently Relevant to Health Maintenance Results * OMS [employer] (04/10/2025 2:09 PM CDT) us Dionicio Stewart D.D.S. PROCEDURE/MINOR SURGICA L ORDERABLES Final Result * [...] D.D.S. LAB BLOOD ADD-ON Keri garrett Result [facility] [address] [place] [address], [facility] [address] [place] [address] from Last 3 Months or Most Recently Relevant to Health Maintenance Insurance MEDICARE [facility] [place] [address] [facility] [place] [address] Advance Directives For more information, please contact: [phone] Documents on File Type Date Recorded Patient Plc Technician Expl anation Advance Directives 07/22/2024 10:26 AM Advance Directives 07/18/2024 3:52 PM Clay Galeano HCPOA/ADVOCATE/AGENT/ RN INTERNSHIP/SURROG ATE Healthcare Agents on File Name Relationship Healthcare Agent Relationship Communication Clay Alberts Spouse Health Care Agent Jonathon Alberts Son First Alternat e Health Care Agent Fanny Galeano Unknown Second Alte rnate Health Care Agent Care Teams Clearance Representative Relationship Specialty Start Date End Date Elsewhere, Pcp PCP - General Internal Medicine 12/06/24
--- OUTSIDE RECORDS SUMMARY | 2025-04-25 14:49 | XMS_ITS | Encounter Summary ---
Author Organization [facility] Address [address] [place] [address] Care Team Providers Care Insole Beveler Name Role Phone Elsewhere, Pcp Primary Care Provider Unavailabl e Encounter Details Date Type Department Care Team (Late st Contact Info) Description 04/18/2025 Orders Only Division of occupational health manager in [place], [place] [address] [place] [phone] Sebastien Bo M.D., D.D.S. [address] [place] [phone] Social History Tobacco Use Types Packs/Day Years Used Date Smoking Tobacco: Former Smokeless Tobacco: Never Alcohol Use Standard Drinks/Week Comments Not Currently 0 (1 standard drink = 0.6 oz pur e alcohol) [facility] Utilities Answer Date Recorded In the [...] your living situation today? 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 [address] [place] [address] documented as of this encounter Visit Diagnoses Not on filedocumented in this encounter Care Teams Insole Beveler Relationship Specialty Start Date End Date Elsewhere, Pcp PCP - General Internal Medicine 12/06/24 documented as of this encounter
--- OUTSIDE RECORDS SUMMARY | 2025-04-25 14:49 | XMS_ITS ---
Author Organization [facility] Address [address] [place] [address] Care Team Providers Care Auditing Manager Name Role Phone Unavailable Unavailable Unavailable Allergies, Adverse Reactions, Alerts This patient has no known allergies or adverse reactions. Problems This patient has no known problems.
--- OUTSIDE RECORDS SUMMARY | 2025-04-25 14:49 | XMS_ITS | Encounter Summary ---
Author Organization [facility] Address [address] [place] [address] Care Team Providers Care Gravel Machine Operator Name Role Phone Elsewhere, Pcp Primary Care Provider Unavailabl e Encounter Details Date Type Department Care Team (Latest Contact Info) Description 04/11/2025 Clinical [address] Division of street light repairer in [place], [place] [address] [place] [address] Dionicio Stewart D.D.S. [address] [place] [address] Social History Tobacco Use Types Packs/Day Years Used Date Smoking Tobacco: Former Smokeless Tobacco: Never Alcohol Use Standard Drinks/Week Comments Not Currently 0 (1 standard drink = 0.6 oz pur e alcohol) [facility] Utilities Answer Date Recorded In the [...] your living situation today? I have a [facility] place to live 08/24/2024 Comments No Sex and Gender Information Value Date Recorded Sex Assigned at Female 08/24/2024 1:36 PM CDT Legal Sex Female 11:47 AM FITTER AND TURNER Gender Identity Female 08/24/2024 1:36 PM CDT Sexual Orientation Straight 08/24/2024 1: 36 PM CDT documented as of this encounter Plan of Treatment Upcoming Encounters Date Type Department Care Team (Late st Contact Info) Description 07/15/2025 3:40 PM CDT Appointment Division of street light repairer in [place], [place] [address] [place] [address] Ori Murray M.D., D.M.D. [address] [place] [address] documented as of this encounter Visit Diagnoses Not on filedocumented in this encounter Care Teams Gravel Machine Operator Relationship Specialty Start Date End Date Elsewhere, Pcp PCP - General Internal Medicine 12/06/24 documented as of this encounter
--- OUTSIDE RECORDS SUMMARY | 2025-04-25 14:49 | XMS_ITS ---
Author Name Ellen, Clinic Address [address] [place] [address] Phone [phone] Organization [facility] e, NA DOCUMENT DISCLAIMER Multiple document versions may exist, please be sure you review the latest version. The information in the [facility] [place] Continuity of Care Document represents a summary of certain health and medical information. It may not contain the complete medical history for the patient and should be independently verified. The represented time in the document is Eastern Time. 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 [...] or unspecified chronic kidney disease I12.9 Active ry 2019 Iron deficiency anemia, unspecified D50.9 Activ e November 22, 2019 End stage renal disease N18.6 Active mary 2019 Anemia in chronic kidney disease D63.1 [...] Dosage Route Start Date End Date Stat Acetaminophen During Dialysis, PRN 650 mg Oral February 17, 2025 February 16, 2026 Active Heparin Sodium (Porcine) 1,000 Units/mL Catheter Lock Arterial Post Dialysis, Every Treatment 1700 units Arterial Red Port December 16, 2024 December 15, 2025 Active Heparin Sodium (Porcine) 1,000 Units/mL Catheter Lock Venous Post Dialysis, Every Treatment 1700 units Venous Blue Port December 16, 2024 December 15, 2025 Active Heparin Sodium (Porcine) 1,000 Units/mL Systemic Bolus, Every Treatment, Total treatment minutes 240 4000 units Intravenous - push March 17, 2025 March 16, 2026 Active Iron Sucrose (Venofer) During Dialysis, 1X Week 50 mg Intravenous - push March 10, 2025 March 09, 2026 Active Mircera During Dialysis, Every 2 weeks 50 mcg Intravenous - push March 10, 2025 March 09, 2026 Active Doxercalciferol (Hectorol) 3X Week 4 mcg Intravenous - push March 07, 2025 March 06, 2026 Discontinued Home Medications Medication Instructions Dosage Route Start Date End Date Stat us acetaminophen 500 mg Take by mouth three times a day 2 capsule ORAL July 17, 2023 Active Advair HFA HFA aerosol inhaler 50 mcg Unknown November 11, 2024 Active allopurinol 100 mg Take by mouth three times a week as directed 1 tablet ORAL August 18, 2017 Active amiodarone 200 mg Take by mouth once a day 1 tablet ORAL November 27, 2017 Active amoxicillin-pot clavulanate 500-125 mg Take by mouth once a day 1 tablet ORAL July 24, 2024 Active apixaban 2.5 mg by mouth twice a day 1 tablet ORAL August 02, 2023 Active Atrac-Tain (with AHA) 10-4% to affected area twice a day TOPICAL August 02, 2023 Active C-Lax Laxative (bisacodyl) 5 mg Take by mouth once a day as needed 1 tablet ORAL November 11, 2024 Active carboxymethylcellulose sodium 1% into both [...] 1 tablet ORAL May 24, 2023 Active lanthanum 500 mg Take by mouth three times a day with meals 3 tablet ORAL November 22, 2024 Active Miralax 17 gram/dose Take dissolved in [...] 1 tablet ORAL May 24, 2023 Active oxycodone 5 mg Take by mouth three times a day as needed for pain 1 tablet ORAL December 16, 2024 Active pantoprazole 40 mg Take by mouth twice a day 1 tablet ORAL November 11, 2024 Active Senna-S 8.6-50 mg Take by mouth twice a day as needed 2 tablet ORAL December 30, 2019 Active Sucroferric Oxyhydroxide 500 mg Take By Mouth Every 24 hours With Meals 4 Tablet By Mouth November 22, 2024 November 22, 2025 Active Triphrocaps 1 mg ORAL November 11, 2024 Active Zofran 8 mg Take by mouth every six hours as needed 1 tablet by mouth January 02, 2019 Active VITAL SIGNS Post-Treatment Vital Signs Vital Sign Value Date / Time Blood Pressure-sitting 125/65 mmHg April 23, 2025 09:48 AM Heart Rate 100 beats per minute April 23 09:48 AM Respiratory Rate 18 breaths per minute April 23, 2025 09:48 AM Temperature 97.1 deg. F April 23, 2025 09 :48 AM Weight Vital Sign Value Date / Time Estimated Dry Weight 111.9 kg April 25 11:59 PM Pre-Dialysis 114.10 kg April 23, 2025 09 :48 AM Post-Dialysis 112.40 kg April 23, 2025 09 :48 AM Other Other Value Date / Time Height 157 cm February 26, 2024 12: 00 AM Body Mass Index 45.40 kg/m2 March 28, 2025 03 :07 PM HE[facility]CERNS LAB RESULTS Hematology Result Type Result Value Relevant Referen ce Range Interpretation Date WBC (No Diff) 10.47 1000/mcL 4.80 - 10.80 1000/mcL - October 30, 2024 Platelets 117 1000/mcL 130 - 400 1000/mcL Low Senthil mary2024 Transferrin Sat. (Calc) 57 % 20 - 55 % High October 30, 2024 TIBC 232 mcg/dL 185 - 515 mcg/dL - October 30, 2024 UIBC (Calc) 100 mcg/dL 155 - 355 mcg/dL Low October 30, 2024 UIBC (Calc) 127 mcg/dL 155 - 355 mcg/dL Low November 01, 2024 Neutrophils 84.9 % 40.0 - 75.0 % High October Platelets 128 1000/mcL 130 - 400 1000/mcL Low Senthil mary 2024 Transferrin Sat. (Calc) 48 % 20 - 55 % - November 01, 2024 TIBC 243 mcg/dL 185 - 515 mcg/dL - November 01, 2024 Platelets 173 1000/mcL 130 - 400 1000/mcL - Febr uary 2024 UIBC (Calc) 267 mcg/dL 155 - 355 mcg/dL - Februar y 2024 Neutrophils 80.1 % 40.0 - 75.0 % High November WBC (No Diff) 7.50 1000/mcL 4.80 - 10.80 1000/mcL - November 27, 2024 Ferritin 1410 ng/mL 10 - 291 ng/mL High November TIBC 402 mcg/dL 185 - 515 mcg/dL - November 27, 2024 Transferrin Sat. (Calc) 34 % 20 - 55 % - November 27 TIBC 188 mcg/dL 185 - 515 mcg/dL - December UIBC (Calc) 61 mcg/dL 155 - 355 mcg/dL Low December Transferrin Sat. (Calc) 68 % 20 - 55 % High December 27, 2024 Platelets 155 1000/mcL 130 - 400 1000/mcL - 2024 Neutrophils 82.4 % 40.0 - 75.0 % High January 22, 2025 UIBC (Calc) 137 mcg/dL 155 - 355 mcg/dL Low January TIBC 234 mcg/dL 185 - 515 mcg/dL - January Transferrin Sat. (Calc) 41 % 20 - 55 % - January 22, 2025 Hemoglobin x 3 34.8 % 36.0 - 48.0 % Low January 232024 Hemoglobin x 3 33.9 % 36.0 - 48.0 % Low February 26, 2025 Platelets 129 1000/mcL 130 - 400 1000/mcL Low February 26, 2025 Eosinophil 3.2 % 0.0 - 7.0 % - February 26, 2025 Basophils 0.7 % 0.0 - 1.5 % - February 26, 2025 CHARMAINE 1.2 % 0.0 - 4.0 % - February 26, 2025 Neutrophils 79.3 % 40.0 - 75.0 % High February 26 25 Lymphocytes 10.8 % 19.0 - 48.0 % Low February 26 25 Monocytes 4.7 % 3.0 - 10.0 % - February 26, 2025 Transferrin Sat. (Calc) 35 % 20 - 55 % - February 26, 2025 TIBC 274 mcg/dL 185 - 515 mcg/dL - February 26, 2025 UIBC (Calc) 178 mcg/dL 155 - 355 mcg/dL - February 26, 2025 Iron 96 mcg/dL 30 - 160 mcg/dL - February 26, 025 Ferritin 1090 ng/mL 10 - 291 ng/mL High March 03 25 RDW 14.5 % 11.5 - 14.5 % - March 03 MCHC 31.6 g/dL 30.0 - 36.0 g/dL - March 03, 2025 MCH 33.4 pg 27.0 - 31.0 pg High March 03 Hemoglobin x 3 33.3 % 36.0 - 48.0 % Low March 03, 2025 WBC (No Diff) 8.67 1000/mcL 4.80 - 10.80 1000/mcL - March 03, 2025 Hemoglobin x 3 33.0 % 36.0 - 48.0 % Low March 05, 2025 Hemoglobin x 3 32.4 % 36.0 - 48.0 % Low March 19, 2025 HGB 10.2 g/dL 12.0 - 16.0 g/dL Low March 26, 2025 RDW 15.8 % 11.5 - 14.5 % High March 26 Platelets 121 1000/mcL 130 - 400 1000/mcL Low March 26, 2025 Hemoglobin x 3 30.6 % 36.0 - 48.0 % Low March MCHC 31.2 g/dL 30.0 - 36.0 g/dL - March 26, 2025 Iron 79 mcg/dL 30 - 160 mcg/dL - March 26, 2025 UIBC (Calc) 121 mcg/dL 155 - 355 mcg/dL Low March TIBC 200 mcg/dL 185 - 515 mcg/dL - March 26, 2025 Transferrin Sat. (Calc) 40 % 20 - 55 % - March 26, 2025 CHARMAINE 1.0 % 0.0 - 4.0 % - March 26, 2025 Basophils 0.5 % 0.0 - 1.5 % - March 26, 2025 RBC 3.12 mill/mcL 4.20 - 5.40 mill/mcL Low March 26, 2025 WBC (No Diff) 7.52 1000/mcL 4.80 - 10.80 1000/mcL - March 26, 2025 Lymphocytes 10.0 % 19.0 - 48.0 % Low March 26 Eosinophil 4.6 % 0.0 - 7.0 % - March 26, 2025 Monocytes 3.2 % 3.0 - 10.0 % - Laurie 04, 202 5 HCT 32.7 % 37.0 - 47.0 % Low March 26 25 MCH 32.6 pg 27.0 - 31.0 pg High March 26 Neutrophils 80.7 % 40.0 - 75.0 % High March 26 TIBC 576 mcg/dL 185 - 515 mcg/dL High April 23, 2025 UIBC (Calc) 557 mcg/dL 155 - 355 mcg/dL High April Iron 19 mcg/dL 30 - 160 mcg/dL Low April 23, 2025 Transferrin Sat. (Calc) 3 % 20 - 55 % Low April 23, 2025 Lymphocytes 3.8 % 19.0 - 48.0 % Low April 23 Neutrophils 90.3 % 40.0 - 75.0 % April 23 CHARMAINE 0.8 % 0.0 - 4.0 % - April 23, 2025 Basophils 0.3 % 0.0 - 1.5 % - April 23, 2025 Eosinophil 1.1 % 0.0 - 7.0 % - April 23, 2025 Monocytes 3.8 % 3.0 - 10.0 % - April 23 HCT 35.5 % 37.0 - 47.0 % Low April 23 RBC 3.30 mill/mcL 4.20 - 5.40 mill/mcL Low April 23, 2025 WBC (No Diff) 21.70 1000/mcL 4.80 - 10.80 1000/mcL High April 23, 2025 RDW 15.5 % 11.5 - 14.5 % High April 23 MCHC 31.2 g/dL 30.0 - 36.0 g/dL - April 23, 2025 MCH 33.5 pg 27.0 - 31.0 pg High April 23 Platelets 199 1000/mcL 130 - 400 1000/mcL - April 23, 2025 Hemoglobin x 3 33.3 % 36.0 - 48.0 % Low April HGB 11.1 g/dL 12.0 - 16.0 g/dL Low April 23, 2025 Metabolic/Renal Result Type Result Value Relevant Reference Range Interpre tation Date Chloride 98 mEq/L 96 - 108 mEq/L - February 26 Potassium 4.6 mEq/L 3.5 - 5.1 mEq/L - February 26 Bicarbonate 26 mEq/L 20 - 31 mEq/L - February 26 Creatinine, Serum 4.31 mg/dL 0.60 - 1.30 mg/dL High February 26, 2025 BUN 43 mg/dL 6 - 19 mg/dL High February 26, 2025 Sodium 139 mEq/L 136 - 145 mEq/L - February 26, BUN/Creat Ratio 10.0 10.0 - 20.0 - February 26, 2025 BUN, Post 10 mg/dL 6 - 19 mg/dL - February 26, 2025 URR, Calc 77 % 65 - 80 % - February 26, 2025 Bicarbonate 28 mEq/L 20 - 31 mEq/L - March 26, BUN 48 mg/dL 6 - 19 mg/dL High March 26 Creatinine, Serum 4.06 mg/dL 0.60 - 1.30 mg/dL High March 26, 2025 Potassium 4.3 mEq/L 3.5 - 5.1 mEq/L - March 26, 2025 Chloride 100 mEq/L 96 - 108 mEq/L - March 26 025 BUN/Creat Ratio 11.8 10.0 - 20.0 - March 26, 2025 Sodium 138 mEq/L 136 - 145 mEq/L - March 26, 2025 BUN, Post 10 mg/dL 6 - 19 mg/dL - March 28 BUN 44 mg/dL 6 - 19 mg/dL High March 28 URR, Calc 77 % 65 - 80 % - March 28, 2025 BUN, Post 8 mg/dL 6 - 19 mg/dL - April 23 Chloride 97 mEq/L 96 - 108 mEq/L - April 23, 025 Potassium 6.1 mEq/L 3.5 - 5.1 mEq/L High April 23, 2025 Sodium 131 mEq/L 136 - 145 mEq/L Low April 23, 2025 BUN/Creat Ratio 10.1 10.0 - 20.0 - April 23, 2025 Bicarbonate 22 mEq/L 20 - 31 mEq/L - April 23 025 Creatinine, Serum 3.87 mg/dL 0.60 - 1.30 mg/dL High April 23, 2025 BUN 39 mg/dL 6 - 19 mg/dL High April 23 URR, Calc 79 % 65 - 80 % - April 23, 2025 HD Adequacy Result Type Result Value Relevant Referen ce Range Interpretation Date Krt/V 0.00 No Reference Ran ge Provided - October 30, 2024 Krt/V 0.00 No Reference Ran ge Provided - November 01, 2024 Krt/V 0.00 No Reference Ran ge Provided - November 27, 2024 Krt/V 0.00 No Reference Ran ge Provided - December 27, 2024 Krt/V 0.00 No Reference Ran ge Provided - January 22, 2025 Krt/V 0.00 No Reference Ran ge Provided - February 26, 2025 eKt/V ([place]) 1.48 No Reference Range Provided - February 26, 2025 spKt/V (Daugirdas II) 1.70 No Reference Range Provided - February 26, 2025 wstdKt/V 2.5 No Reference Ran ge Provided - February 26, 2025 wstdKt/V without residual 2.5 No Reference Range Provided - February 26, 2025 spKt/V Gotch 1.78 No Reference Ran ge Provided - February 26, 2025 wstdKt/V, residual 0.0 No Reference Range Provided - February 26, 2025 wstdKt/V, residual 0.0 No Reference Range Provided - March 28, 2025 Krt/V 0.00 No Reference Ran ge Provided - March 28, 2025 eKt/V ([place]) 1.48 No Reference Range Provided - March 28, 2025 wstdKt/V without residual 2.5 No Reference Range Provided - March 28, 2025 spKt/V Gotch 1.77 No Reference Ran ge Provided - March 28, 2025 spKt/V (Daugirdas II) 1.70 No Reference Range Provided - March 28, 2025 wstdKt/V 2.5 No Reference Ran ge Provided - March 28, 2025 Bone/Mineral Result Type Result Value Relevant Referen ce Range Interpretation Date Magnesium 2.3 mg/dL 1.6 - 2.6 mg/dL - May Vitamin D 25 Hydroxy 13.2 ng/mL 30.0 - 100.0 ng/mL Low August 28, 2024 Magnesium 2.1 mg/dL 1.6 - 2.6 mg/dL - August 28, 2024 PTH-Intact, Plasma 1352 pg/mL 16 - 80 pg/mL High [facility]2024 Magnesium 2.2 mg/dL 1.6 - 2.6 mg/dL - October 232024 Magnesium 2.5 mg/dL 1.6 - 2.6 mg/dL - November 27, 2024 PTH-Intact, Plasma 532 pg/mL 16 - 80 pg/mL High Nov Magnesium 2.8 mg/dL 1.6 - 2.6 mg/dL High December 27, 2024 PTH-Intact, Plasma 445 pg/mL 16 - 80 pg/mL High Dec Magnesium 2.2 mg/dL 1.6 - 2.6 mg/dL - January 22, 2025 Calcium, Total 10.7 mg/dL 8.7 - 10.4 mg/dL High February 26, 2025 Phosphorus 5.5 mg/dL 2.6 - 4.5 mg/dL High February 26 Magnesium 2.3 mg/dL 1.6 - 2.6 mg/dL - February 26 Alkaline Phosphatase 125 U/L 35 - 104 U/L High 2024 Ca x P Product 59 0 - 54 High February 26 Phosphorus 7.0 mg/dL 2.6 - 4.5 mg/dL High March 03 PTH-Intact, Plasma 30 pg/mL 16 - 80 pg/mL - March 03, 2025 Phosphorus 4.7 mg/dL 2.6 - 4.5 mg/dL High March 26, 2025 Calcium, Total 10.2 mg/dL 8.7 - 10.4 mg/dL - March 26, 2025 PTH-Intact, Plasma 46 pg/mL 16 - 80 pg/mL - Mar Ca x P Product 48 0 - 54 - March 26, 025 Magnesium 2.3 mg/dL 1.6 - 2.6 mg/dL - March 26, 2025 Corrected Ca x P Product 49 0 - 54 - March 26, 2025 PTH-Intact, Plasma 106 pg/mL 16 - 80 pg/mL High Apr Magnesium 2.3 mg/dL 1.6 - 2.6 mg/dL - April 23, 2025 Corrected Ca x P Product 25 0 - 54 - April 23, 2025 Ca x P Product 25 0 - 54 - April 23, 025 Phosphorus 2.5 mg/dL 2.6 - 4.5 mg/dL Low April 23, 2025 Calcium, Total 9.9 mg/dL 8.7 - 10.4 mg/dL - April 23, 2025 Liver/Nutrition Result Type Result Value Relevant Reference Range Interpre tation Date Albumin (BCG) 4.1 g/dL 3.5 - 5.2 g/dL - January Total Protein 6.1 g/dL 6.0 - 8.5 g/dL - February 26, 2025 eNPCR 0.81 No Reference Ran ge Provided - February 26, 2025 Albumin (BCG) 4.1 g/dL 3.5 - 5.2 g/dL - March 03, 2025 Albumin (BCG) 3.8 g/dL 3.5 - 5.2 g/dL - March Total Protein 5.5 g/dL 6.0 - 8.5 g/dL Low March A/G Ratio 2.2 1.0 - 2.0 High March 26, 2025 Globulin (Calc) 1.7 g/dL 2.0 - 4.0 g/dL Low March 26, 2025 eNPCR 0.87 No Reference Ran ge Provided - March 28, 2025 A/G Ratio 1.7 1.0 - 2.0 - April 23, 2025 Globulin (Calc) 2.4 g/dL 2.0 - 4.0 g/dL - April 23, 2025 Albumin (BCG) 4.1 g/dL 3.5 - 5.2 g/dL - April Total Protein 6.5 g/dL 6.0 - 8.5 g/dL - April Immunochemistry Result Type Result Value Relevant Reference Range Interpre tation Date HCV s/co ratio 0.13 0.00 - 0.79 - April 23, 2025 Trace Elements Result Type Result Value Relevant Reference Range Interpre tation Date Aluminum 6 mcg/L 0 - 10 mcg/L - August 28, 2024 Infectious Diseases Result Type Result Value Relevant Referen ce Range Interpretation Date Hep B Surface Ab (anti-HBs) < 10 mIU/mL No Reference Range Provided - August 28, 2024 Hep B Surface Ag (HBsAg) Negative No Reference Range Provided - April 23, 2025 HCV Ab (anti-HCV) Nonreactive No Reference R rogelio Provided - April 23, 2025 DIALYSIS PRESCRIPTION Conventional Hemodialysis Data Element Value Order Date/Time April 25, 2025 Frequency 3X Week Treatment Days MonWedFri Dialyzer 180NRe Optiflux Treatment Time (Total Minutes) 240 min Blood Flow Rate (mL/min) 450 mL/min Dialysate Flow Rate Manual 800 Estimated Dry Weight 111.9 kg Dialysate Concentrate 2.0 K, 2.5 Ca, 1.0 Mg, 100 Dextrose (G2251) Sodium (mEq/L) 138 mEq/L Bicarb Machine Setting (mEq/L) 29 mEq/L Dialysis Access Hemodialysis-CV Cath eter-Tunneled, Chest, Right Jugular Access Placed on January 14, 2022 IMMUNIZATIONS Vaccine Date Dose Route Status [id number]-L-[id number], series 2 of February 26, 2020 40.0 mcg Int ramuscular Completed PRWTLYO-E-XMYHG, series 1 of January 22, 2020 40.0 mcg I ntramuscular Completed THLXRWD-J-KEZBT, series 4 of January 23, 2019 40.0 mcg I ntramuscular Completed SDZGGYC-E-NCDXZ, series 3 of October 24, 2018 40.0 mcg Intramuscular Completed OAVGMPH-K-HPWLW, series 2 of September 26, 2018 40.0 mcg Intramuscular Completed YGDYOTK-N-DUFEW, series 1 of August 29, 2018 40.0 mcg Intramuscular Completed PREVNAR May 23, 2018 0.5 mL Intramuscular Comple aydee [id number]-T-EPRSB December 27, 2017 40.0 mcg Intramuscular Co mpleted PNEUMOVAX November 06, 2017 0.5 mL Intramuscular Com pleted AVMLCVI-D-UIUJD October 09, 2017 40.0 mcg Intramuscular Completed CEPDXEA-P-HWBPL September 06, 2017 40.0 mcg Intramuscular Completed UJFJINQ-H-TJTKI August 09, 2017 40.0 mcg Intramuscular Completed TRANSPLANT WAITLIST STATUS No Information on Transplant Waitlist Status ADVANCE DIRECTIVES Directive Description Ordered By Effective Date Resuscitation status Full Code Wesley Herrera Apr 04, 2025 DIALYSIS TREATMENTS Conventional Hemodialysis Date Pre-Treatment Vitals Post-Treatment Sherice ls Duration (hr) BFR (mL/min) Dialysate Dialyzer Dialysis Access Meds Admin April 18, 2025 Weight 114.50 kg Weight 112.60 kg 03:56:00 400 3.0 K, 2.5 Ca, 1.0 Mg, 100 Dextrose (G3251) 180nre Optifl ux Blood Pressure-sitting 137/65 mmHg Blood Pressure-sit ting 131/78 mmHg Heart Rate 79 beats per minute Heart Rate 99 beats per minute Respiratory Rate 16 breaths per minute Respiratory Rate 16 breaths per minute Temperature 97.0 deg. F Temperature 97.2 deg. F April 21, 2025 Weight 116.20 kg Weight 112.80 kg 04:01:00 450 3.0 K, 2.5 Ca, 1.0 Mg, 100 Dextrose (G3251) 180nre Optiflux Hemodialysis-CV Catheter-Tunneled, Chest, Right Jugular Access Placed on January 14, 2022 Heparin Sodium (Porcine) 1,000 Units/mL Catheter Lock Arterial; 1700units,Arterial Red Port Heparin Sodium (Porcine) 1,000 Units/mL Catheter Lock Venous; 1700units,Venous Blue Port Heparin Sodium (Porcine) 1,000 Units/mL Systemic; 4000units,Intravenous - push Iron Sucrose (Venofer); 50mg,Intravenous - push Mircera; 50mcg,Intravenous - push Blood Pressure-sitting 149/53 mmHg Blood Pressure-sit ting 121/66 mmHg Heart Rate 79 beats per minute Heart Rate 96 beats per minute Respiratory Rate 14 breaths per minute Respiratory Rate 14 breaths per minute Temperature 96.2 deg. F Temperature 97.4 deg. F April 23, 2025 Weight 114.10 kg Weight 112.40 kg 03:35:00 450 3.0 K, 2.5 Ca, 1.0 Mg, 100 Dextrose (G3251) 180nre Optiflux Hemodialysis-CV Catheter-Tunneled, Chest, Right Jugular Access Placed on January 14, 2022 Heparin Sodium (Porcine) 1,000 Units/mL Catheter Lock Arterial; 1700units,Arterial Red Port Heparin Sodium (Porcine) 1,000 Units/mL Catheter Lock Venous; 1700units,Venous Blue Port Heparin Sodium (Porcine) 1,000 Units/mL Systemic; 4000units,Intravenous - push Blood Pressure-sitting 151/75 mmHg Blood Pressure-sit ting 125/65 mmHg Heart Rate 78 beats per minute Heart Rate 100 beat s per minute Respiratory Rate 15 breaths per minute Respiratory Rate 18 breaths per minute Temperature 97.8 deg. F Temperature 97.1 deg. F
--- OUTSIDE RECORDS SUMMARY | 2025-04-25 14:49 | XMS_ITS | Encounter Summary ---
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 [address] [place] [address] Social History Tobacco Use Types Packs/Day Years Used Date Smoking Tobacco: Former Smokeless Tobacco: Never Alcohol Use Standard Drinks/Week Comments Not Currently 0 (1 standard drink = 0.6 oz pur e alcohol) [facility] Utilities Answer Date Recorded In the past [...] your living situation today? 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 - 04/11/2025 5:14 PM CDT Called and spoke with Soo regarding some difficulty wearing her BiPAP mask status post extraction of several teeth with our service yesterday. She reports that she did have difficulty with sleep as she was unable to wear her BiPAP last night due to the fact that the mask presses against the cheek adjacent to her 3rd molar extraction site numbers 17. She also does note some soreness with swallowing, but no major difficulties in terms of breathing or speech. We discussed that the soreness his typical, and will gradually resolve with time. In terms of the difficulty with the mass, the main intervention be to adjust the mask so that it is not sitting directly against the extraction site, but this post extraction soreness is normal and will gradually resolve with time. All questions and concerns were addressed. 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 [address] [place] [address] documented as of this encounter Visit Diagnoses Not on filedocumented in this encounter Care Teams Dress Operator Relationship Specialty Start Date End Date Elsewhere, Pcp PCP - General Internal Medicine 12/06/24 documented as of this encounter
--- OUTSIDE RECORDS SUMMARY | 2025-04-25 14:49 | XMS_ITS | Encounter Summary ---
Author Organization [facility] Address [address] [place] [address] Care Team Providers Care Janitorial Account Manager Name Role Phone Elsewhere, Pcp Primary Care Provider Unavailabl e Encounter Details Date Type Department Care Team (Late st Contact Info) Description 04/17/2025 Orders Only Division of body coverer in [place], [place] [address] [place] [phone] Bijal Ponce L.D.A. [address] [place] [address] Social History Tobacco Use Types Packs/Day Years Used Date Smoking Tobacco: Former Smokeless Tobacco: Never Alcohol Use Standard Drinks/Week Comments Not Currently 0 (1 standard drink = 0.6 oz pur e alcohol) [facility] Utilities Answer Date Recorded In the past [...] your living situation today? 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 [address] [place] [address] documented as of this encounter Visit Diagnoses Not on filedocumented in this encounter Care Teams Janitorial Account Manager Relationship Specialty Start Date End Date Elsewhere, Pcp PCP - General Internal Medicine 12/06/24 documented as of this encounter
--- NOTE | 2025-04-25 14:58 | CRLHL7_ITS ---
For Patients: As a result of the Century Cures Act, medical imaging exams and procedure reports are released immediately into your electronic medical record. You may view this report before your referring provider. If you have questions, please contact your health care provider. INDICATION: RT TIB/FIB SWELLING. (Sic) COMPARISON: None available. TECHNIQUE: Two views of the right tibia and fibula. FINDINGS: Diffuse osteopenia consistent with disuse. Instrumented fusion of the tibiotalar joint and subtalar joint with an interlocking cancellous screw traversing the lateral malleolus and talus. 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 Correlation with prior imaging is suggested. Nonspecific focal soft tissue swelling of the lateral aspect of the lower leg is identified on the AP view. Correlation with clinical findings is recommended with regard to the indication for the study. Dystrophic calcification is noted incidentally within the superficial aspect of the leg. Incidental note is made of advanced osteoarthrosis of the knee. IMPRESSION: 1. Nonspecific focal soft tissue swelling of the lateral aspect of the lower leg is identified on the AP view. Correlation with clinical findings is recommended with regard to the indication for the study. 2. 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 Correlation with prior imaging is suggested. 3. Postsurgical findings as above. 4. Diffuse osteopenia is consistent with disuse. Dictated by Reese Freeman MD @ 04/25/2025 5:15:53 PM (Electronically Signed)
--- NOTE | 2025-04-25 15:00 | CRLHL7_ITS ---
For Patients: As a result of the Cures Act, medical imaging exams and procedure reports are released immediately into your electronic medical record. You may view this report before your referring provider. If you have questions, please contact your health care provider. INDICATION: Cough. COMPARISON: Chest x-ray dated 13 November 2019. FINDINGS: A single portable chest x-ray shows median sternotomy changes. Right-sided central venous catheter. Normal cardiac silhouette. The lungs are somewhat hypoventilated and show mild bibasilar atelectasis. No pneumothorax. IMPRESSION: Mild bibasilar atelectasis. No pneumothorax. Dictated by Paul Dunbar MD @ 04/25/2025 5:12:06 PM Dictated by: Paul Dunbar MD @ 04/25/2025 17:12:18 (Electronically Signed)
--- NOTE | 2025-04-25 15:03 | ED_ITS ---
HPI - General Adult General Date Seen: 04/25/25 Chief complaint: Extremity Pain/Injury, Lower Stated complaint: Ill Time Seen by Provider: 04/25/25 14:55 History of Present Illness HPI narrative: Patient is a 74-year-old sent from her dialysis run because of concerns about low blood pressures. Patient herself tells me that this is been kind of a bad week. She reports problems with constipation and says that no one at the care facility has been helping with this. She also says she has had a little bit of a cough and wonders if she might have aspirated. She has been having some pain in her right leg, has a chronic wound there and says that they were supposed to express the drainage from this daily and change the dressing but she says this has not been done since April 22. She is here in April 25. Apparently blood work done at dialysis 2 days ago showed a white blood cell count [id number]. No reported fevers. Medics report blood pressures ranging from 60s systolic to 90s systolic, her baseline blood pressure is on the low end, review of her records here show blood pressures in the 80s and 90s. She does not report chest pain or shortness of breath, vomiting or diarrhea, black or bloody stools. Related Data Home Medications ?Medication ?Instructions ?Recorded ?Confirmed acetaminophen .Route 11/08/24 allopurinol 100 mg tablet mg 11/08/24 amiodarone 200 mg tablet mg DAILY 11/08/24 apixaban 2.5 mg tablet (Eliquis) mg 11/08/24 cyclobenzaprine 10 mg tablet mg 3XD 11/08/24 doxycycline hyclate 100 mg tablet mg 11/08/24 ferrous fumarate 325 mg (106 mg 325 mg PO DAILY 11/08/24 iron) tablet (Ferretts) nystatin 100,000 unit/gram topical topical 11/08/24 ointment omeprazole 20 mg capsule,delayed 20 mg PO DAILY 11/08/24 release oxycodone 5 mg tablet mg 11/08/24 sucroferric oxyhydroxide 500 mg 500 mg PO TID 11/08/24 11/08/24 chewable tablet (Velphoro) Allergies Allergy/AdvReac Type Severity Reaction Status Date / Time aspirin Allergy Unknown Unverified 11/08/24 15:06 astemizole Allergy Unknown Unverified 11/08/24 15:06 benzalkonium Allergy Unknown Unverified 11/08/24 15:06 brimonidine Allergy Unknown Unverified 11/08/24 15:06 cinacalcet Allergy Unknown Unverified 11/08/24 15:06 cobalt Allergy Unknown Unverified 11/08/24 15:06 cranberry Allergy Unknown Unverified 11/08/24 15:06 influenza virus vaccine ts Allergy Unknown Unverified 11/08/24 15:06 [id number] (36 mos,up) (From Fluarix) Iodinated Contrast Media Allergy Unknown Unverified 11/08/24 15:06 ketorolac (From Toradol) Allergy Unknown Unverified 11/08/24 15:06 latex Allergy Unknown Unverified 11/08/24 15:06 levofloxacin (From Levaquin) Allergy Unknown Unverified 11/08/24 15:06 lisinopril Allergy Unknown Unverified 11/08/24 15:06 methacholine Allergy Unknown Unverified 11/08/24 15:06 morphine Allergy Unknown Unverified 11/08/24 15:06 naproxen (From Naprosyn) Allergy Unknown Unverified 11/08/24 15:06 oxycodone Allergy Unknown Unverified 11/08/24 15:06 pentazocine Allergy Unknown Unverified 11/08/24 15:06 propoxyphene Allergy Unknown Unverified 11/08/24 15:06 quinidine Allergy Unknown Unverified 11/08/24 15:06 succinylcholine Allergy Unknown Unverified 11/08/24 15:06 Sulfa (Sulfonamide AdvReac Unknown Unverified 11/08/24 15:06 Antibiotics) acetaminophen (From Vicodin) AdvReac Verified 11/08/24 15:06 hydrocodone (From Vicodin) AdvReac Verified 11/08/24 15:06 Review of Systems Status of ROS: Reports: 6 or more systems reviewed and unremarkable except as noted in History and below Exam Narrative: Exam Narrative: Vital signs reviewed In general, alert, nontoxic elderly woman. She is significantly overweight, wearing dark black tinted sunglasses. She is otherwise not ill appearing, breathing easily. Head: Normocephalic, atraumatic. Eyes: Sclera clear. Pupils equal and reactive. ENT: Mucous membranes moist. Neck: Supple without adenopathy. Heart: Regular rate and rhythm without murmur. Lungs: Clear. No increased work of breathing, crackles or wheezes. Abdomen: Soft, nontender to palpation. Exam limited by body habitus. Extremities: Legs are large, she has a little bit of edema bilaterally although not massive. On the right, her lower leg is in a supportive brace. I removed this as well as the dressing overlying a small wound in her anterior carr. This is less than a cm in size, clean and dry. There is no surrounding erythema, no drainage at this time. No significant edema, no tenderness. Distal CMS is intact. Neurologic: Alert, conversant. Speech fluent, face symmetric. Moves all extremities equally. Skin: Warm, dry well perfused. Affect: Normal. Const: Vital Signs, click to edit/add: Vital Signs - 24 hr 04/25/25 14:48 Temperature 97.9 F Pulse Rate [Pulse Oximeter] 101 H Respiratory Rate 18 Blood Pressure [Ri ght Upper Arm] 112/68 Pulse Oximetry 94 Oxygen Delivery Me thod Nasal Cannula Course Course ED Course: Patient is sent in from dialysis due to reported low blood pressures there. She did finish her dialysis run. Diagnostic considerations would include hypotension related to dialysis, sepsis, acute coronary syndrome, among others. At this time her leg looks reassuring to me. She does report some problems with constipation and cough, though her lungs sound clear and her O2 sats are unremarkable on her baseline oxygen supplementation. Her abdominal exam is benign. Will check basic labs, I do not think right now it makes sense to give her fluids given that she just came off of dialysis, blood pressure here at least initially is reassuring. She is mentating well. Labs are overall unremarkable. Her hemoglobin is 9.8, this is fairly stable for her. White blood cell count here is normal at 10.7. She has a slight left shift with 82% neutrophils. Metabolic panel is normal today, troponin is less than 0.01. CRP is less than 0.5. Procalcitonin is 0.03. An EKG showed a sinus rhythm ventricular rate of 100. She has small voltages but her EKG is unchanged compared to her previous visit here earlier this year. By my review, x-ray of her chest does not show any evidence of infiltrate. I read the radiology report for her chest x-ray and tib-fib x-ray. 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 I do not see anything on exam or x-ray that suggests an acute infection. Her blood pressures here have been overall in the 80s and 90s, which seems to be normal for her, based on her previous visit here. Not surprising given her status as a dialysis patient. At this time, I do not see evidence of any acute concerning process. No changes in her status in the few hours that she has been observed in the emergency department. Plan will be to discharge home with outpatient follow-up. Discussed management of her constipation with MiraLax, Dulcolax. Return as needed for worsening. Vital Signs Vital signs: Initial Vital Signs Temperature 97.9 F 04/25/25 14:48 Temperature Source Temporal Artery Scan 04/25/25 14:48 Pulse Rate 101 H 04/25/25 14:48 Pulse Rhythm Regular 04/25/25 14:48 Respiratory Rate 18 04/25/25 14:48 Blood Pressure 112/68 04/25/25 14:48 Blood Pressure Mean 82 04/25/25 14:48 Blood Pressure Position Supine 04/25/25 14:48 Pulse Oximetry 94 04/25/25 14:48 Oxygen Delivery Method Nasal Cannula 04/25/25 14:48 Vital Signs Temperature 97.9 F 04/25/25 14:48 Pulse Rate 101 H 04/25/25 14:48 Respiratory Rate 18 04/25/25 14:48 Blood Pressure 112/68 04/25/25 14:48 Pulse Oximetry 94 04/25/25 14:48 Oxygen Delivery Method Nasal Cannula 04/25/25 14:48 Temperature 97.9 F 04/25/25 14:48 Pulse Rate 101 H 04/25/25 14:48 Respiratory Rate 18 04/25/25 14:48 Blood Pressure 112/68 04/25/25 14:48 Pulse Oximetry 94 04/25/25 14:48 Oxygen Delivery Method Nasal Cannula 04/25/25 14:48 Medical Decision Making Lab Data Labs: Lab Results 04/25/25 Range/Units 15:24 WBC 10.67 (4.50-11.00) K/uL RBC 3.01 L (4.00-5.20) m/uL Hgb 9.8 L (12.0-16.0) gm/dL Hct 31.7 L (33.0-51.0) % MCV 105 H (80-100) fL MCH 33 (26-34) pg MCHC 31 L (32-36) gm/dL RDW Coeff of Nba 14.5 (11.5-15.5) % Plt Count 217 (140-440) K/uL Neut % (Auto) 81.8 H (42.0-72.0) % Lymph % (Auto) 8.3 L (20-44) % Fleming % (Auto) 5.2 (0.0-11.0) % Eos % (Auto) 2.2 (0.0-7.0) % Baso % (Auto) 0.6 (0.0-3.0) % Neut # (Auto) 8.70 H (1.7-7.0) K/uL Lymph # (Auto) 0.90 (0.90-2.90) K/uL Fleming # (Auto) 0.60 (0.00-0.90) K/UL Eos # (Auto) 0.23 (0.00-0.50) K/uL Baso # (Auto) 0.06 (0.00-0.30) K/uL Abs Immat Gran (auto) 0.20 (0.00-0.30) K/uL Imm/Tot Granulo (auto) 1.9 % Sodium 137 (135-149) mmol/L Potassium 4.1 (3.6-5.1) mmol/L Chloride 103 (96-114) mmol/L Carbon Dioxide 28 (20-32) mmol/L Anion Gap 6 L (7-15) mEq/L BUN 12 (7-30) mg/dL Creatinine 0.6 (0.5-1.5) mg/dL Estimated Creat Clear 39.63 Estimated GFR 95 ml/min Glucose 86 (60-115) mg/dL Lactate 0.8 (0.5-1.9) mmol/L Calcium 9.0 (8.4-10.6) mg/dL Troponin I < 0.01 (0.01-0.04) ng/mL C-Reactive Protein < 0.5 L (0.5-1.0) mg/dL Procalcitonin 0.03 (<0.50) ng/mL POC Troponin I Cancelled Imaging Data Right tib-fib x-ray: Attestation: I have reviewed the pertinent imaging results. Radiologist's impression: Patient: Soo Alberts MR#: [id number] : 1950 Acct:[id number] Loc: ED Service Date: 04/25/[address]: Ordering Physician: Irina Lewis M.D. Date of Service: 04/25/25 Procedure(s): XR tibia fibula RT 2V Accession Number(s): [id number] cc: Samir Rascon M.D.; Irina Lewis M.D.~ For Patients: As a result of the Cures Act, medical imaging exams and procedure reports are released immediately into your electronic medical record. You may view this report before your referring provider. If you have questions, please contact your health care provider. INDICATION: RT TIB/FIB SWELLING. (Sic) COMPARISON: None available. TECHNIQUE: Two views of the right tibia and fibula. FINDINGS: Diffuse osteopenia consistent with disuse. Instrumented fusion of the tibiotalar joint and subtalar joint with an interlocking cancellous screw traversing the lateral malleolus and talus. 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 Correlation with prior imaging is suggested. Nonspecific focal soft tissue swelling of the lateral aspect of the lower leg is identified on the AP view. Correlation with clinical findings is recommended with regard to the indication for the study. Dystrophic calcification is noted incidentally within the superficial aspect of the leg. Incidental note is made of advanced osteoarthrosis of the knee. IMPRESSION: 1. Nonspecific focal soft tissue swelling of the lateral aspect of the lower leg is identified on the AP view. Correlation with clinical findings is recommended with regard to the indication for the study. 2. 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 Correlation with prior imaging is suggested. 3. Postsurgical findings as above. 4. Diffuse osteopenia is consistent with disuse. Dictated by Reese Freeman MD @ 04/25/2025 5:15:53 PM Chest x-ray: Attestation: I have reviewed the pertinent imaging results. Radiologist's impression: Patient: Soo Alberts MR#: [id number] : 1950 Acct:[id number] Loc: ED Service Date: 04/25/[address]: Ordering Physician: Irina Lewis M.D. Date of Service: 04/25/25 Procedure(s): XR chest 1V portable Accession Number(s): [id number] cc: Samir Rascon M.D.; Irina Lewis M.D.~ For Patients: As a result of the Cures Act, medical imaging exams and procedure reports are released immediately into your electronic medical record. You may view this report before your referring provider. If you have questions, please contact your health care provider. INDICATION: Cough. COMPARISON: Chest x-ray dated 13 November 2019. FINDINGS: A single portable chest x-ray shows median sternotomy changes. Right-sided central venous catheter. Normal cardiac silhouette. The lungs are somewhat hypoventilated and show mild bibasilar atelectasis. No pneumothorax. IMPRESSION: Mild bibasilar atelectasis. No pneumothorax. Dictated by Paul Dunbar MD @ 04/25/2025 5:12:06 PM Dictated by: Paul Dunbar MD @ 04/25/2025 17:12:18 Discharge Plan Discharge Clinical Impression: Observation and evaluation for suspected conditions not found Patient Disposition: er [facility] Additional Instructions: Your tests are all reassuring today. There is no evidence of aspiration or other pneumonia, your blood counts look good, I do not see any kind of worsening infection in your leg. For constipation, 1st line of treatment is usually MiraLax, 1 capful daily. This can be increased if needed until results achieved. Follow-up with your regular doctor as needed for ongoing concerns. Prescriptions: No Action allopurinol 100 mg tablet Patient Comments: [NO ORIGINAL SIG] cyclobenzaprine 10 mg tablet 3XD nystatin 100,000 unit/gram ointment topical amiodarone 200 mg tablet DAILY doxycycline hyclate 100 mg tablet oxycodone 5 mg tablet Patient Comments: [NO ORIGINAL SIG] Eliquis 2.5 mg tablet omeprazole 20 mg capsule,delayed release(DR/EC) 20 mg PO DAILY Velphoro 500 mg tablet,chewable 500 mg PO TID Ferretts 325 mg (106 mg iron) tablet 325 mg PO DAILY acetaminophen .Route Stand Alone Forms: [facility] Info Instructions
[2025-04-25 15:38] LABS: Hematocrit 31.7 % (33.0-51.0); Hemoglobin* 9.8 gm/dL (12.0-16.0); Immature Granulocytes Abs Auto 0.20 K/uL (0.00-0.30); Immature Granulocytes Pct Auto 1.9 %; Mean Corpuscular HGB Conc 31 gm/dL (32-36); Mean Corpuscular Hemoglobin 33 pg (26-34); Mean Corpuscular Volume 105 fL (80-100); RDW Coefficient of Variation % 14.5 % (11.5-15.5); Red Blood Count 3.01 m/uL (4.00-5.20); White Blood Count* 10.67 K/uL (4.50-11.00)
[2025-04-25 15:48] LABS: Lactate Sepsis w/Reflex* 0.8 mmol/L (0.5-1.9)
[2025-04-25 15:49] LABS: Lymphocytes Absolute Auto 0.90 K/uL (0.90-2.90); Slide Review Reflex No
[2025-04-25 16:08] LABS: Chloride* 103 mmol/L (96-114); Potassium* 4.1 mmol/L (3.6-5.1); Sodium* 137 mmol/L (135-149)
[2025-04-25 16:12] LABS: Anion Gap 6 mEq/L (7-15); Blood Urea Nitrogen* 12 mg/dL (7-30); Calcium* 9.0 mg/dL (8.4-10.6); Carbon Dioxide* 28 mmol/L (20-32); Creatinine* 0.6 mg/dL (0.5-1.5); Est. Creatinine Clearance* 39.63; Estimated Glomerular Filt Rate 95 ml/min; Glucose* 86 mg/dL (60-115)
[2025-04-25 16:29] LABS: Procalcitonin* 0.03 ng/mL (<0.50)
== END 2025-04-25 18:30 | disposition home or self-care (01) ==
PROVIDERS: Emergency Provider Emergency Medicine; PCP Family Medicine
DX: R03.1 Nonspecific low blood-pressure reading (principal); K59.00 Constipation, unspecified; R05.9 Cough, unspecified; M79.604 Pain in right leg; Z71.1 Person with feared health complaint in whom no diagnosis is made
CPT/HCPCS: 36415; 71045; 73590; 80048; 83605; 84145; 84484; 85025; 86140; 87040; 99284; 99285

== ENCOUNTER 2025-07-14 15:15 | Outpatient (CLI) | payer MEDICARE, BC, SELFPAY | END 2025-07-14 15:16 | disposition home or self-care (01) | PROVIDERS: PCP Family Medicine; Visit Provider Family Medicine | DX: R42 Dizziness and giddiness (principal); I95.9 Hypotension, unspecified; Z99.2 Dependence on renal dialysis | CPT/HCPCS: A0425; A0427; A0428 ==

== ENCOUNTER 2025-07-14 15:50 | Emergency (ER) | payer MEDICARE, BC, SELFPAY ==
--- OUTSIDE RECORDS SUMMARY | 2019-07-26 19:00 | XMS_ITS | Continuity of Care Document ---
Author Organization [facility] Address [address] [address] [place] [address] Phone Care Team Providers Care Supervisor [employer] Name Role Phone David Martinez MD Unavailable Unavailable Procedures Procedure Date Init Hosp-da E&m Mod Severity 9 Subsqt Hosp-da E&m Minr Compl 9 Subsqt Hosp-da E&m Minr Compl 9 Subsqt Hosp-da E&m Minr Compl 9 Subsqt Hosp-da E&m Minr Compl 9 Subsqt Hosp-da E&m Minr Compl 9 Subsqt Hosp-da E&m Minr Compl 9 Small Bowel PillCam Ugi Endo; Dx W/wo Collec Specm 19 Sigmoidoscopy Flex; Dx (jun Pr 19 Subsqt Hosp-da E&m Minr Compl 9 Subsqt Hosp-da E&m Minr Compl 9 Subsqt Hosp-da E&m Minr Compl 9 Subsqt Hosp-da E&m Minr Compl 9 Subsqt Hosp-da E&m Minr Compl 9 Init Hosp-da E&m Mod Severity 9 Init Hosp-da E&m Mod Severity 9 Sigmoidoscopy Flex; Dx (jun Pr 19 Colonoscopy Flex; Dx (jun) 19 Init Hosp-da E&m Mod Severity 7 Subsqt Hosp-da E&m Minr Compl 7 Colonoscopy Flex; W/bx 1/mx Subsqt Hosp-da E&m Stable 15 M 17 Advance Directives Directive Yes / No Effective Date File Name No Information Encounters Encounter Description Practice Location Reason(s) For Visit Diagnoses Date Provider Providers Copied on Encounter [facility], [address] [address], [place], [id number], [place] tel:[phone] [facility] No Information 9 Michelle Hernandez. [address] [facility], [address], [id number], [place]. tel:[phone] Init Hosp-da E&m Mod Severity [facility], [address] [address], [place], [id number], [place] tel:[phone] [facility] No Information 9 Michelle Hernandez. [address] [place] [address], [id number], [place]. tel:[phone] Referring Provider: Samir Rascon MD W, [address] [place] [address], [address]. tel:[phone] Subsqt Hosp-da E&m Minr Compl [facility], [address] [address], [facility] [place], [id number], [place] tel:[phone] [facility] No Information 9 No Information Subsqt Hosp-da E&m Minr Compl [facility], [address] [address], [facility] [place], [id number], [place] tel:[phone] [facility] No Information 9 Jameel Nickerson. [address] [place] [address], [id number], [place]. tel:[phone] Referring Provider: Ester Davies MD, [address] [place] [address], [place], [address]. tel:[phone] Subsqt Hosp-da E&m Minr Compl [facility], [address] [address], [facility] [place], [id number], [place] tel:[phone] [facility] No Information Yareli Olmedo. [address], [id number], [place]. tel:[phone] Referring Provider: Ester Davies MD, [address], [place], [address]. tel:[phone] [facility], [address] [address], [place], [id number], [place] tel:[phone] [facility] Anemia, unspecified typeHematoche ivelisse No Information [facility], [address] [address], [place], [id number], [place] tel:[phone] [facility] No Information Michelle Hernandez. [address], [id number], [place]. tel:[phone] Referring Provider: Ester Davies MD, [address], [place], [address]. tel:[phone] Subsqt Hosp-da E&m Minr Compl [facility], [address] [address], [place], [id number], [place] tel:[phone] [facility] No Information No Information Referring Provider: Ester Davies MD, [address], [place], [address]. tel:[phone] Subsqt Hosp-da E&m Minr Compl [facility], [address] [address], [place], [place], [id number], [place] tel:[phone] [facility] No Information Kathy Ordaz. [address], [id number], [place]. tel:[phone] Referring Provider: Ester Davies MD, [address], [place], [address]. tel:[phone] Init Hosp-da E&m Mod Severity [facility], [address] [address], [place], [place], [id number], [place] tel:[phone] [facility] No Information 9 Bereket Fernandez. [address] [place] [address], [address], [id number], [place]. tel:[phone] Referring Provider: Ester Davies MD, [address] [place] [address], [place], [address]. tel:[phone] Init Hosp-da E&m Mod Severity [facility] [place], [address] [address], [place], [place], [id number], [place] tel:[phone] [facility] No Information 9 Jarod Mederos. [address] [place] [address], [id number], [place]. tel:[phone] Referring Provider: Ester Davies MD, [address] [place] [address], [address]. tel:[phone] In Hosp-da E&m Mod Severity [facility] [place], [address] [address], [place], [place], [id number], [place] tel:[phone] [facility] No Information 7 Kingsley Lacey. [address] [place] [address], [id number], [place]. tel:[phone] Referring Provider: Samir Rascon MD W, [address] [facility], [place], [address]. tel:[phone] Family History Family Member Type Diagnosis Age At Onset No Information Payers Payer name Insurance type Covered democrat ID Authoriza tion(s) No Information Social History Type Description Quantity Date Captured Comments Sex Female Smoking Status No Information Chief Complaint And Reason For Visit No Information Reason For Referral Reason For Referral No Information History Of Present Illness Encounter Date Complaint History Of Prese nt Illness No Information Functional Status Date Functional Assessmen t No Information Instructions Date Instruction Additional Infor mation No Information Assessments Type Assessment Date No Information Patient Care Teams Name Effective Dates (start - stop) Status Members No Information
--- OUTSIDE RECORDS SUMMARY | 2025-07-14 15:53 | XMS_ITS ---
Author Name Ellen, Clinic Address [address] [place] [address] Phone [phone] Organization [facility] e, NA DOCUMENT DISCLAIMER Multiple document versions may exist, please be sure you review the latest version. The information in the [facility] Continuity of Care Document represents a summary [...] February 17, 2025 February 16, 2026 Active DefenCath Catheter Lock Arterial Post Dialysis, Every Treatment 1.7 mL Arterial Red Port July 11, 2025 May 22, 2026 Active DefenCath Catheter Lock Venous Post Dialysis, Every Treatment 1.7 mL Venous Blue Port July 11, 2025 May 22, 2026 Active Doxercalciferol (Hectorol) 3X Week 2 mcg Intravenous - push July 02, 2025 June 29, 2026 Active Heparin Sodium (Porcine) 1,000 Units/mL Systemic Bolus, Every Treatment, Total treatment minutes 240 4000 units Intravenous - push March 17, 2025 March 16, 2026 Active Mircera During Dialysis, Every 4 weeks 75 mcg Intravenous - push July 09, 2025 July 08, 2026 Active Cefazolin During Dialysis, Once 2000 mg Intravenous - push June 13, 2025 Discontinued DefenCath Catheter Lock Arterial Post Dialysis, Every Treatment 3 mL Arterial Red Port May 26, 2025 May 22, 2026 Discontinued DefenCath Catheter Lock Venous Post Dialysis, Every Treatment 3 mL Venous Blue Port May 26, 2025 May 22, 2026 Discontinued Iron Sucrose (Venofer) During Dialysis, 1X Week 50 mg Intravenous - push May 12, 2025 May 11, 2026 Discontinued Home Medications Medication Instructions Dosage Route Start Date End Date Stat acetaminophen 500 mg Take by mouth three [...] 1 tablet ORAL November 11, 2024 Active carboxymethylcellulo se sodium 1% into both eyes three times [...] 1 tablet ORAL May 24, 2023 Active Lanthanum Carbonate 500 mg Take By Mouth Three times a day With Meals 1 Tablet By Mouth July 09, 2025 September 07, 2025 Active Miralax 17 gram/dose Take dissolved in [...] hours With Meals 4 Tablet By Mouth July 09, 2025 November 22, 2025 Active Sucroferric Oxyhydroxide 500 mg Take By Mouth Every 24 hours With Meals 4 Tablet By Mouth November 22, 2024 November 22, 2025 Active Sucroferric Oxyhydroxide 500 mg Take By Mouth Every 24 hours With Meals 7 Tablet By Mouth June 20, 2025 November 22, 2025 Active Triphrocaps 1 mg ORAL November 11, 2024 Active Zofran 8 mg Take by mouth every six hours as needed 1 tablet by mouth January 02, 2019 Active lanthanum 500 mg Take by mouth three times a day with meals 3 tablet ORAL July 09, 2025 Discontinued VITAL SIGNS Post-Treatment Vital Signs Vital Sign Value Date / Time Blood Pressure-sitting 95/50 mmHg July 11, 2025 10:05 AM Heart Rate 93 beats per minute June 10:05 AM Respiratory Rate 16 breaths per minute July 11, 2025 10:05 AM Temperature 97.6 deg. F July 11 10:05 AM Weight Vital Sign Value Date / Time Estimated Dry Weight 111 kg June 11:59 PM Pre-Dialysis 114.90 kg July 11 10:05 AM Post-Dialysis 112.40 kg July 11 10:05 AM Other Other Value Date / Time Height 157 cm February 26, 2024 12: 00 AM Body Mass Index 45.03 kg/m2 July 09 02:40 PM [facility] LAB RESULTS Hematology Result Type Result Value Relevant Referen ce Range Interpretation Date Platelets 155 1000/mcL 130 - 400 1000/mcL - Apri l 2024 Neutrophils 82.4 % 40.0 - 75.0 % High January 22, 2025 UIBC (Calc) 137 mcg/dL 155 - 355 mcg/dL Low January TIBC 234 mcg/dL 185 - 515 mcg/dL - January Transferrin Sat. (Calc) 41 % 20 - 55 % - January 22, 2025 Platelets 129 1000/mcL 130 - 400 1000/mcL Low February 26, 2025 Neutrophils 79.3 % 40.0 - 75.0 % High February 26 Transferrin Sat. (Calc) 35 % 20 - 55 % - February 26, 2025 TIBC 274 mcg/dL 185 - 515 mcg/dL - February 26, 2025 UIBC (Calc) 178 mcg/dL 155 - 355 mcg/dL - February 26, 2025 Ferritin 1090 ng/mL 10 - 291 ng/mL High March 03 WBC (No Diff) 8.67 1000/mcL 4.80 - 10.80 1000/mcL - March 03, 2025 Platelets 121 1000/mcL 130 - 400 1000/mcL Low March 26, 2025 UIBC (Calc) 121 mcg/dL 155 - 355 mcg/dL Low March TIBC 200 mcg/dL 185 - 515 mcg/dL - March 26, 2025 Transferrin Sat. (Calc) 40 % 20 - 55 % - March 26, 2025 WBC (No Diff) 7.52 1000/mcL 4.80 - 10.80 1000/mcL - March 26, 2025 Neutrophils 80.7 % 40.0 - 75.0 % [...] Neutrophils 90.3 % 40.0 - 75.0 % High April 23 CHARMAINE 0.8 % 0.0 - 4.0 % - April 23, 2025 Basophils 0.3 % 0.0 - 1.5 % - April 23, 2025 Eosinophil 1.1 % 0.0 - 7.0 % - April 23, 2025 Monocytes 3.8 % 3.0 - 10.0 % - April 23 WBC (No Diff) 21.70 1000/mcL 4.80 - [...] % 36.0 - 48.0 % Low April Hemoglobin x 3 33.6 % 36.0 - 48.0 % Low May 23, 2025 Iron 104 mcg/dL 30 - 160 mcg/dL - May TIBC 229 mcg/dL 185 - 515 mcg/dL - May UIBC (Calc) 125 mcg/dL 155 - 355 mcg/dL Low May 28, 2025 Ferritin 1365 ng/mL 10 - 291 ng/mL High May 28, 2025 Transferrin Sat. (Calc) 45 % 20 - 55 % - May 28, 2025 Hemoglobin x 3 35.4 % 36.0 - 48.0 % Low May 28, 2025 Platelets 173 1000/mcL 130 - 400 1000/mcL - 2024 RDW 16.1 % 11.5 - 14.5 % High May 28, 2025 MCH 32.6 pg 27.0 - 31.0 pg High May 28, 2025 MCHC 29.3 g/dL 30.0 - 36.0 g/dL Low May Eosinophil 2.0 % 0.0 - 7.0 % - May 28 Basophils 0.6 % 0.0 - 1.5 % - May 28 Lymphocytes 12.5 % 19.0 - 48.0 % Low May 28, 2025 Monocytes 3.9 % 3.0 - 10.0 % - May 28 Neutrophils 80.0 % 40.0 - 75.0 % High May 28, 2025 CHARMAINE 1.0 % 0.0 - 4.0 % - May 28 WBC (No Diff) 8.05 1000/mcL 4.80 - 10.80 1000/mcL - May 28, 2025 Hemoglobin x 3 34.8 % 36.0 - 48.0 % Low June 11, 2025 Hemoglobin x 3 35.1 % 36.0 - 48.0 % Low June 18, 2025 HGB 11.7 g/dL 12.0 - 16.0 g/dL Low May 242024 UIBC (Calc) 33 mcg/dL 155 - 355 mcg/dL Low 2024 Iron 195 mcg/dL 30 - 160 mcg/dL High June 25, 2025 Transferrin Sat. (Calc) 86 % 20 - 55 % High June 25, 2025 TIBC 228 mcg/dL 185 - 515 mcg/dL - Septembe r 2024 RDW 14.0 % 11.5 - 14.5 % - June HGB 11.2 g/dL 12.0 - 16.0 g/dL Low Septembe r 2024 MCHC 32.6 g/dL 30.0 - 36.0 g/dL - Septembe r 2024 Hemoglobin x 3 33.6 % 36.0 - 48.0 % Low Septemb er 2024 Platelets 165 1000/mcL 130 - 400 1000/mcL - Jun Lymphocytes 9.3 % 19.0 - 48.0 % Low June 25, 2025 Monocytes 5.5 % 3.0 - 10.0 % - June CHARMAINE 1.0 % 0.0 - 4.0 % - June 25, 2025 WBC (No Diff) 8.67 1000/mcL 4.80 - 10.80 1000/mcL - June 25, 2025 Eosinophil 2.4 % 0.0 - 7.0 % - June 25, 2025 Basophils 0.7 % 0.0 - 1.5 % - June 25, 2025 MCH 34.5 pg 27.0 - 31.0 pg High June 25, 2025 RBC 3.24 mill/mcL 4.20 - 5.40 mill/mcL Low June 25, 2025 HCT 34.3 % 37.0 - 47.0 % Low June Neutrophils 81.1 % 40.0 - 75.0 % High June 25, 2025 HGB 11.1 g/dL 12.0 - 16.0 g/dL Low Septembe r 2024 Hemoglobin x 3 33.3 % 36.0 - 48.0 % Low Septemb er 2024 Hemoglobin x 3 29.7 % 36.0 - 48.0 % Low Septemb er 2024 HGB 9.9 g/dL 12.0 - 16.0 g/dL Low Septembe r 2024 Metabolic/Renal Result Type Result Value Relevant Referen ce Range Interpretation Date BUN, Post 8 mg/dL 6 - 19 mg/dL - April 23 Chloride 97 mEq/L 96 - 108 mEq/L - April 23, 025 Potassium 6.1 mEq/L 3.5 - 5.1 mEq/L High April 23, 2025 Sodium 131 mEq/L 136 - 145 mEq/L Low April 23, 2025 BUN/Creat Ratio 10.1 10.0 - 20.0 - April 23, 2025 Bicarbonate 22 mEq/L 20 - 31 mEq/L - April 23, 2 025 Creatinine, Serum 3.87 mg/dL 0.60 - 1.30 mg/dL High April 23, 2025 BUN 39 mg/dL 6 - 19 mg/dL High April 23 URR, Calc 79 % 65 - 80 % - April 23, 2025 BUN 53 mg/dL 6 - 19 mg/dL High April 28 URR, Calc 79 % 65 - 80 % - April 28, 2025 BUN, Post 11 mg/dL 6 - 19 mg/dL - April 28 Potassium 5.1 mEq/L 3.5 - 5.1 mEq/L - May 02, 2025 Bicarbonate 24 mEq/L 20 - 31 mEq/L - May 28, 2025 Chloride 99 mEq/L 96 - 108 mEq/L - May 28, 2025 BUN, Post 13 mg/dL 6 - 19 mg/dL - May 28, 025 URR, Calc 76 % 65 - 80 % - May 28 Creatinine, Serum 5.11 mg/dL 0.60 - 1.30 mg/dL High May 28, 2025 BUN 55 mg/dL 6 - 19 mg/dL High May 28, 025 Sodium 137 mEq/L 136 - 145 mEq/L - May BUN/Creat Ratio 10.8 10.0 - 20.0 - May Potassium 5.9 mEq/L 3.5 - 5.1 mEq/L High May BUN/Creat Ratio 14.1 10.0 - 20.0 - 2024 Creatinine, Serum 5.12 mg/dL 0.60 - 1.30 mg/dL High June 25, 2025 Potassium 4.9 mEq/L 3.5 - 5.1 mEq/L - June 25, 2025 Sodium 136 mEq/L 136 - 145 mEq/L - June 25, 2025 BUN, Post 15 mg/dL 6 - 19 mg/dL - June BUN 72 mg/dL 6 - 19 mg/dL High June Chloride 100 mEq/L 96 - 108 mEq/L - June 25, 2025 Bicarbonate 20 mEq/L 20 - 31 mEq/L - June 25, 2025 URR, Calc 79 % 65 - 80 % - June 25, 2025 HD Adequacy Result Type Result Value Relevant Referen ce Range Interpretation Date Krt/V 0.00 No Reference Ran ge Provided - January 22, 2025 Krt/V 0.00 No Reference Ran ge Provided - February 26, 2025 Krt/V 0.00 No Reference Ran ge Provided - March 28, 2025 Krt/V 0.00 No Reference Ran ge Provided - April 23, 2025 wstdKt/V without residual 2.6 No Reference Range Provided - April 23, 2025 spKt/V Gotch 1.86 No Reference Ran ge Provided - April 23, 2025 wstdKt/V, residual 0.0 No Reference Range Provided - April 23, 2025 wstdKt/V 2.6 No Reference Ran ge Provided - April 23, 2025 eKt/V ([place]) 1.54 No Reference Range Provided - April 23, 2025 spKt/V (Daugirdas II) 1.80 No Reference Range Provided - April 23, 2025 eKt/V ([place]) 1.61 No Reference Range Provided - April 28, 2025 spKt/V (Daugirdas II) 1.84 No Reference Range Provided - April 28, 2025 eKt/V ([place]) 1.46 No Reference Range Provided - May 28, 2025 spKt/V (Daugirdas II) 1.67 No Reference Range Provided - May 28, 2025 Krt/V 0.00 No Reference Ran ge Provided - May 28, 2025 wstdKt/V without residual 2.5 No Reference Range Provided - May 28, 2025 spKt/V Gotch 1.76 No Reference Ran ge Provided - May 28, 2025 wstdKt/V 2.5 No Reference Ran ge Provided - May 28, 2025 wstdKt/V, residual 0.0 No Reference Range Provided - May 28, 2025 spKt/V (Daugirdas II) 1.79 No Reference Range Provided - June 25, 2025 wstdKt/V without residual 2.6 No Reference Range Provided - June 25, 2025 Krt/V 0.00 No Reference Ran ge Provided - June 25, 2025 wstdKt/V, residual 0.0 No Reference Range Provided - June 25, 2025 spKt/V Gotch 1.84 No Reference Ran ge Provided - June 25, 2025 eKt/V ([place]) 1.56 No Reference Range Provided - June 25, 2025 wstdKt/V 2.6 No Reference Ran ge Provided - June 25, 2025 Bone/Mineral Result Type Result Value Relevant Referen ce Range Interpretation Date Vitamin D 25 Hydroxy 13.2 ng/mL 30.0 - 100.0 ng/mL Low August 28, 2024 Magnesium 2.1 mg/dL 1.6 - 2.6 mg/dL - August 28, 2024 Magnesium 2.2 mg/dL 1.6 - 2.6 mg/dL - October 232024 Magnesium 2.5 mg/dL 1.6 - 2.6 mg/dL - November 27, 2024 Magnesium 2.8 mg/dL 1.6 - 2.6 mg/dL High December 27, 2024 Magnesium 2.2 mg/dL 1.6 - 2.6 mg/dL - January 22, 2025 Magnesium 2.3 mg/dL 1.6 - 2.6 mg/dL - February 26, 2 025 PTH-Intact, Plasma 30 pg/mL 16 - 80 pg/mL - March 03, 2025 PTH-Intact, Plasma 46 pg/mL 16 - 80 pg/mL - Mar Magnesium 2.3 mg/dL 1.6 - 2.6 mg/dL - March 26, 2025 PTH-Intact, Plasma 106 pg/mL 16 - 80 pg/mL High Apr Magnesium 2.3 mg/dL 1.6 - 2.6 mg/dL - April 23, 2025 Corrected Ca x P Product 0 - April 23, 2025 Ca x P Product 0 - - April 23, 2 025 Phosphorus 2.5 mg/dL 2.6 - 4.5 mg/dL Low April 23, 2025 Calcium, Total 9.9 mg/dL 8.7 - 10.4 mg/dL - April 23, 2025 Phosphorus 3.0 mg/dL 2.6 - 4.5 mg/dL - May 02, 2025 Calcium, Total 9.4 mg/dL 8.7 - 10.4 mg/dL - 2024 Ca x P Product 52 0 - 54 - May 28, 2025 Phosphorus 5.5 mg/dL 2.6 - 4.5 mg/dL High May Corrected Ca x P Product 51 0 - 54 - May 28, 2025 Alkaline Phosphatase 179 U/L 35 - 104 U/L High Au 2024 Magnesium 2.2 mg/dL 1.6 - 2.6 mg/dL - May PTH-Intact, Plasma 711 pg/mL 16 - 80 pg/mL High May Corrected Ca x P Product 48 0 - 54 - June 25 Calcium, Total 8.8 mg/dL 8.7 - 10.4 mg/dL - Jun Ca x P Product 48 0 - 54 - June 25, 2025 Phosphorus 5.5 mg/dL 2.6 - 4.5 mg/dL High June 25, 2025 Magnesium 2.1 mg/dL 1.6 - 2.6 mg/dL - June 25, 2025 PTH-Intact, Plasma 829 pg/mL 16 - 80 pg/mL High Sep tember 2024 Liver/Nutrition Result Type Result Value Relevant Referen ce Range Interpretation Date eNPCR 0.75 No Reference Ran ge Provided - April 23, 2025 A/G Ratio 1.7 1.0 - 2.0 - April 23, 2025 Globulin (Calc) 2.4 g/dL 2.0 - 4.0 g/dL - April 23, 2025 Albumin (BCG) 4.1 g/dL 3.5 - 5.2 g/dL - April Total Protein 6.5 g/dL 6.0 - 8.5 g/dL - April Total Protein 6.3 g/dL 6.0 - 8.5 g/dL - May 28, 2025 Albumin (BCG) 4.2 g/dL 3.5 - 5.2 g/dL - May 28, 2025 A/G Ratio 2.0 1.0 - 2.0 - May 28 Globulin (Calc) 2.1 g/dL 2.0 - 4.0 g/dL - 2024 eNPCR 0.99 No Reference Ran ge Provided - May 28, 2025 Globulin (Calc) 2.0 g/dL 2.0 - 4.0 g/dL - mber 2024 Albumin (BCG) 4.0 g/dL 3.5 - 5.2 g/dL - er 2024 Total Protein 6.0 g/dL 6.0 - 8.5 g/dL - 2024 A/G Ratio 2.0 1.0 - 2.0 - June 25, 2025 eNPCR 1.24 No Reference Ran ge Provided - June 25, 2025 Immunochemistry Result Type Result Value Relevant Reference [...] Reference Range Provided - August 28, 2024 HCV Ab (anti-HCV) Nonreactive No Reference R rogelio Provided - April 23, 2025 Hep B Surface Ag (HBsAg) Negative No Reference Range Provided - June 25, 2025 Microbiology-Culture, Catheter Exit Site Result Type Result Value Relevant Reference Range Interpretation Date Culture Result (Dialysis Access Site) Complete No Reference Range Provided - June 11, 2025 Gram Stain Rare WBC Many Gram Positive Cocci In Pairs,Chains And Groups No Reference Range Provided - June 11, 2025 Organism 1 (Dialysis Access Site) Methicillin Resistant Staphylococcus aureus Heavy Growth This isolate does not demonstrate inducible Clindamycin resistance in vitro. Based on CLSI guidelines, testing of all Staphylococcus isolates includes Penicillin, Oxacillin and screening with Cefoxitin. Since this isolate is resistant to all, it is considered resistant to all B-lactams (Penicillin, Cephems/Cephalosporins , and Carbapenems), including B-lactamase inhibitor combinations. Therefore further testing of Cephems (Cefazolin and Ceftazidime) is not advised. ANTIBIOTIC [IMAN ] SENSITIVITY PENICILLIN [>=0.5 ] R CLINDAMYCIN [<=0.25 ] S ERYTHROMYCIN [>=8.0 ] R GENTAMICIN [<=0.5 ] S LEVOFLOXACIN [4.0 ] I LINEZOLID [2.0 ] S MOXIFLOXACIN [2.0 ] S OXACILLIN [>=4.0 ] R RIFAMPIN [<=0.5 ] S TETRACYCLINE [<=1.0 ] S TRIMETHOPRIM/SULFA [<=10.0 ] S VANCOMYCIN [1.0 ] S No Reference Range Provided - June 11, 2025 DIALYSIS PRESCRIPTION Conventional Hemodialysis Data Element Value Order Date/Time June 27, 2025 Frequency 3X Week Treatment Days MonWedFri Dialyzer 180NRe Optiflux Treatment Time (Total Minutes) 240 min Blood Flow Rate (mL/min) 450 mL/min Dialysate Flow Rate Manual 800 Estimated Dry Weight 111 kg Dialysate Concentrate 2.0 K, 2.5 Ca, 1.0 Mg, 100 Dextrose (G2251) Sodium (mEq/L) 138 mEq/L Bicarb Machine Setting (mEq/L) 31 mEq/L Dialysis Access Hemodialysis-CV Cath eter-Tunneled, Chest, Right Jugular Access Placed on January 14, 2022 IMMUNIZATIONS Vaccine Date Dose Route Status [id number], series 2 of February 26, 2020 40.0 mcg Int ramuscular Completed QOHYNSV-K-FGAVH, series 1 of January 22, 2020 40.0 mcg I ntramuscular Completed DVAIQHT-Y-TKZVT, series 4 of January 23, 2019 40.0 mcg I ntramuscular Completed OJEJETI-Y-PVDMB, series 3 of October 24, 2018 40.0 mcg Intramuscular Completed XMPDFWN-H-BMCIP, series 2 of September 26, 2018 40.0 mcg Intramuscular Completed [id number]-[id number], series 1 of August 29, 2018 40.0 mcg Intramuscular Completed PREVNAR May 23, 2018 0.5 mL Intramuscular Comple aydee [id number]-[id number] December 27, 2017 40.0 mcg Intramuscular Co mpleted PNEUMOVAX November 06, 2017 0.5 mL Intramuscular Com pleted PBAJUSK-H-CGDOY October 09, 2017 40.0 mcg Intramuscular Completed [id number]-F-[id number] September 06, 2017 40.0 mcg Intramuscular Completed [id number]-J-RGDEG August 09, 2017 40.0 mcg Intramuscular Completed TRANSPLANT WAITLIST STATUS No Information on Transplant Waitlist Status ADVANCE DIRECTIVES Directive Description Ordered By Effective Date Resuscitation status Full Code Weslye Herrera Apr 04, 2025 DIALYSIS TREATMENTS Conventional Hemodialysis Date Pre-Treatment Vitals Post-Treatment Sherice ls Duration (hr) BFR (mL/min) Dialysate Dialyzer Dialysis Access Meds Admin [facility] 2024 Weight 115.40 kg Weight 113.00 kg 03:07:00 450 2.0 K, 2.5 Ca, 1.0 Mg, 100 Dextrose (G2251) 180nre Optifl ux Blood Pressure-sitting 104/56 mmHg Blood Pressure-sit ting 113/58 mmHg Heart Rate 86 beats per minute Heart Rate 95 beats per minute Respiratory Rate 16 breaths per minute Respiratory Rate 16 breaths per minute Temperature 97.2 deg. F Temperature 97.4 deg. F July 09, 2025 Weight 114.50 kg Weight 113.00 kg 04:05:00 450 2.0 K, 2.5 Ca, 1.0 Mg, 100 Dextrose (G2251) 180nre Optiflux Hemodialysis-CV Catheter-Tunneled, Chest, Right Jugular Access Placed on January 14, 2022 DefenCath Catheter Lock Arterial; 3mL,Arterial Red Port DefenCath Catheter Lock Venous; 3mL,Venous Blue Port Doxercalciferol (Hectorol); 2mcg,Intravenous - push Heparin Sodium (Porcine) 1,000 Units/mL Systemic; 4000units,Intravenous - push Mircera; 75mcg,Intravenous - push Blood Pressure-sitting 111/55 mmHg Blood Pressure-sit ting 113/60 mmHg Heart Rate 88 beats per minute Heart Rate 99 beats per minute Respiratory Rate 16 breaths per minute Respiratory Rate 16 breaths per minute Temperature 97.3 deg. F Temperature 97.5 deg. F July 11, 2025 Weight 114.90 kg Weight 112.40 kg 04:00:00 400 2.0 K, 2.5 Ca, 1.0 Mg, 100 Dextrose (G2251) 180nre Optiflux Hemodialysis-CV Catheter-Tunneled, Chest, Right Jugular Access Placed on January 14, 2022 Acetaminophen; 650mg,Oral Heparin Sodium (Porcine) 1,000 Units/mL Systemic; 4000units,Intravenous - push Blood Pressure-sitting 127/71 mmHg Blood Pressure-sit ting 95/50 mmHg Heart Rate 93 beats per minute Heart Rate 93 beats per minute Respiratory Rate 15 breaths per minute Respiratory Rate 16 breaths per minute Temperature 97.5 deg. F Temperature 97.6 deg. F
--- OUTSIDE RECORDS SUMMARY | 2025-07-14 15:53 | XMS_ITS | Encounter Summary ---
Author Organization [facility] Address [address] [place] [address] Care Team Providers Care Records Analyst Name Role Phone Samir Rascon MD Primary Care Provider Unavailab le Encounter Details Date Type Department Care Team (Late st Contact Info) Description 05/22/2025 Telephone [facility] [address] [place] [address] Annalisa Salcido, RN [address] [place] [address] Social History Tobacco Use Types Packs/Day Years Used Date Smoking Tobacco: Never Assessed Comments Unknown Sex and Gender Information Value Date Recorded Sex Assigned at Not on file Legal Sex Female 7:04 PM EDT Gender Identity Not on file Sexual Orientation Not on file documented as of this encounter Miscellaneous Notes * Telephone Encounter - Leana Orourke RN - 06/04/2025 3:45 PM CDT Pt called back, she states she has already been scheduled for the Referral for next Monday at [facility]. * Telephone Encounter - Annalisa Salcido RN - 06/03/2025 2:00 PM CDT Pt has not scheduled. Called number on file and a male answered and stated she is at a group home. He recommended calling [phone]. Tried that number with no answer or option to leave a voicemail. * Telephone Encounter - Annalisa Salcido RN - 05/27/2025 11:14 AM CDT [facility] has the referral. They sent pt an email and text msg to schedule on 05/23. Called pt and requested that she call [phone] to schedule. She voiced understanding. * Telephone Encounter - Annalisa Salcido RN - 05/22/2025 4:36 PM CDT Images from the original note were not included. Wesley Herrera MD Hetland, Kelsey, RN This is one of my dialysis patients at [facility]. Can you help make sure this referral gets to [facility] and that she gets scheduled relatively soon for evaluation on Monday or (non-dialysis day) with one of the providers I put in the scheduling comments? I hope to get her scheduled before end of May. Called [facility] to get a fax number but the office is closed. Will try again tomorrow. 05/23-Referral faxed to [phone] with note for them to call pt to schedule. documented in this encounter Plan of Treatment Not on file documented as of this encounter Visit Diagnoses Not on filedocumented in this encounter Care Teams Records Analyst Relationship Specialty Start Date End Date Samir Rascon MD PCP - General 07/08/19 documented as of this encounter
--- OUTSIDE RECORDS SUMMARY | 2025-07-14 15:53 | XMS_ITS | Clinical Summary ---
Author Organization [email or web address] [facility] Address [address] [place] [address] Care Team Providers Care Flight Service Agent Name Role Phone [facility] [place] Unavailable [phone] Arden Joyner MD Primary Care P rovider Allergies Active Allergy Reactions Criticality Noted Date Comments Aspirin Vomiting 03/19/2014 Astemizole Flushing 06/15/2021 Benzalkonium [place] Nausea And Vomiting 06/15/2021 Brimonidine Nephritis 06/15/2021 Cinacalcet *Unknown 07/07/2022 Cinacalcet Hcl Hives,Contact Dermatitis Unknown 02/16/2021 [place] Rash 06/15/2021 Iodinated Contrast Media Hives 04/11/2022 Cranberry Edema,Angioedema High 07/05/2017 Propoxyphene-Acetaminop hen Rash,Nausea And Vomiting Flu Vac [id number](36mo,Up)(Pf) Hives Medium 05/28/2021 Hexylnicotinate Nausea And Vomiting 06/15/2021 Hydrocodone-Acetaminoph en Other - Describe In Comment Field,Flushing High 01/22/2018 Pt became itchy around the mouth and then violently threw up after taking 1 [place] post surgery Ketorolac Renal Failure 03/08/2007 Other [...] during night with bipap 1 Each 05/02/20 Active apixaban (ELIQUIS) 2.5 mg tabletIndications: Atrial [...] significant Note: Plasma mets = normal in 2018. No Oct 2019 as well. ACTH stim normal in Nov 2018 and Jun 2019. 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 Chronic constipation 10/27/2017 Stercoral ulcer of rectum 10/27/2017 Overview (10/27/2017): Due to chronic constipation Causing GI bleeding and anemia July 2017 Chronic acquired lymphedema 06/30/2017 Morbid obesity with BMI of 50.0-59.9, adult 05/25 Restrictive lung disease 08/23/2016 Overview (08/23/2016): Severe per channel cementer insole machine(08/09/16) Vitamin D deficiency 03/11/2015 ACP (advance care [...] 60.0-69.9, adult 04/17/2019 01/06/2025 Acute hyperkalemia 12/14/2018 0 FALGUNI 04/2004 AHI/RDI:12 Patien t also is on oxygen 11/16/2017 01/06/2025 Acute [...] 03/08/2007 07/21/2009 Overview (03/08/2007): BILAT Hypertension (HTN) Class 3 obesity due to exces s [...] Encounters Date Type Department Care Team Description 07/08/2025 Lab Requisition [facility] [phone] Serene Velázquez MD 06/10/2025 2:00 PM CDT Office Visit [facility] [address] [place] [address] Brook Woodson MD Consult (Abdominal hernia's) 06/10/2025 Travel 06/06/2025 Telephone [facility] [address] [place] [address] Brook Woodson MD Questions 05/23/2025 Transcribe Orders [facility] [address] [place] [address] Wesley Herrera MD 04/25/2025 Orders Only [facility] Scanner 1 scan: (1-Ord) [facility], XR TIBIA FIBULA RT 2V, 04/25/2025 04/25/2025 Orders Only [facility] Scanner 1 scan: (1-Ord) [facility], CHEST 1 VIEW, 04/25/2025 from Last 3 Months Immunizations Immunization Administration [...] on file Legal Sex 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 Gender Identity Not on file Sexual Orientation [...] Sign Reading Time Taken Comments Blood Pressure 115/77 06/10/2025 2:08 PM CDT Pulse 95 06/10/2025 2:08 PM CDT Temperature 36.5 C (97.7 F) 01/09/2025 7:18 AM CDT Respiratory Rate 16 03/06/2025 10:2 8 AM CDT Oxygen Saturation 100% 06/10/2025 2:08 PM CDT Inhaled Oxygen Concentration - - Weight 111.7 kg (246 lb 4.1 oz) 01/08/2025 1:45 PM CDT Height 157.5 cm (5' 2) 01/05/2025 2:46 PM CDT Body Mass Index 45.04 01/05/2025 2:46 PM CDT Plan of Treatment Upcoming Encounters Date Type Department Care Team (Late st Contact Info) Description 07/31/2025 10:00 AM CDT Office Visit [facility] [address] [facility] [address] [place] [address] Julia Ramírez MD [address] [facility] [address] [place] [address] 08/19/2025 3:00 PM CDT Office Visit [facility] [address] [place] [phone] Dewayne Hilton MD [address] [facility] [address] [place], [place] [id number] Health Maintenance Due Date Last Done Comments [...] history exists COVID-19 vaccine series (2023- season) 2025 Influenza Vaccine (#1) 2025 10/13/2006, 2002 Tetanus booster 04/12/2032 04/12/2022, 09/23, 10/13/2006, Additional history exists Hepatitis C screening for ag e 18-79 Completed 08/05/2020 Pneumococcal series for age 50+ Completed 06/18/2024, 05/23/2018, 11/06/2017 Goals Goal Patient Goal Type Associated Problems Recent Progress Patient-Stated? Author BLOOD PRESSURE - MAINTAINS BP less than 140/90 Blood Pressure Samir Izaguirre MD Medical Devices Implanted Type Area Option Trader Device Identifier Shelf Expiration Date Model / Serial / Lot Screw Sm Joint 4x44mm Axsos Lock - [id number] Implanted:Qty: 1 on 04/12/2022 by Bairon Alejandre MD at [facility] Right: Ankle [employer] [id number] / / Screw Sm Joint 4x50mm Axsos Lock - [id number] Implanted:Qty: 1 on 04/12/2022 by Bairon Alejandre MD at [facility] Right: Ankle [employer] [id number] / / Plate Tib Rt 201mm 12hole Axsos3 Distal Med Implanted:Qty: 1 on 04/12/2022 by Bairon Alejandre MD at [facility] Right: Ankle [id number] / / Description:Plate Tib Rt 201 mm 12Hole Axsos3 Distal Med Screw Sm Joint 3.5x26mm Axsos Valentin Titnm - [id number] Implanted:Qty: 1 on 04/12/2022 by Bairon Alejandre MD at [facility] Right: Ankle [employer] [id number] / / Screw Sm Joint 3.5x28mm Axsos Valentin Titnm - [id number] Implanted:Qty: 1 on 04/12/2022 by Bairon Alejandre MD at [facility] Right: Ankle [employer] [id number] / / Screw Sm Joint 3.5x90mm Axsos Valentin Titnm Implanted:Qty: 1 on 04/12/2022 by Bairon Alejandre MD at [facility] Right: Ankle [id number] / / Description:SCREW SM JOINT 3 .5X90MM AXSOS VALENTIN TITNM Screw Sm Joint 4x26mm Axsos Lock - [id number] Implanted:Qty: 1 on 04/12/2022 by Biaron Alejandre MD at [facility] Right: Ankle [employer] [id number] / / Screw Sm Joint 4x30mm Axsos Lock - [id number] Implanted:Qty: 1 on 04/12/2022 by Bairon Alejandre MD at [facility] Right: Ankle [employer] [id number] / / Screw Sm Joint 4x36mm Axsos Lock - [id number] Implanted:Qty: 1 on 04/12/2022 by Bairon Alejander MD at [facility] Right: Ankle [employer] [id number] / / Screw Sm Joint 5x35mm T2 Full Thrd Lock - [id number] Implanted:Qty: 1 on 05/04/2022 by Ab Nieto MD at [facility] Right: Tibia [employer] 02/19/2027 1896-5035S / / [id number] Screw Sm Joint 5x55mm T2 Full Thrd Lock - [id number] Implanted:Qty: 1 on 05/04/2022 by Ab Nieto MD at [facility] Right: Tibia [employer] 03/22/2026 1896-5055S / / [id number] Screw Sm Joint 5x37.5mm T2 Full Thrd Lock - [id number] Implanted:Qty: 1 on 05/04/2022 by Ab Nieto MD at [facility] Right: Tibia [employer] 05/22/2026 1896-5037S / / [id number] Screw Sm Joint 5x35mm T2 Full Thrd Lock - [id number] Implanted:Qty: 1 on 05/04/2022 by Ab Nieto MD at [facility] Right: Tibia [employer] 02/19/2027 1896-5035S / / [id number] Nail Ankle 11 X 300 Implanted:Qty: 1 on 05/04/2022 by Ab Nieto MD at [facility] Right: Tibia 12/20/2026 1819-1130S / / [id number] Description:NAIL ANKLE 11 X 300 Screw Compression T2 Ankle - [id number] Implanted:Qty: 1 on 05/04/2022 by Ab Nieto MD at [facility] Right: Tibia [employer] 12/20/2026 1818-0001S / / [id number] Tissue Matrix 3cc Flowable Bovine - [id number] Implanted:Qty: 1 on 07/12/2022 by Ab Nieto MD at [facility] [employer] 08/22/2023 [id number] / / [id number] Drsg Biological 500mg Micromatrix - [id number] Implanted:Qty: 1 on 07/12/2022 by Ab Nieto MD at [facility] [employer] 10/22/2023 [id number] / [id number] / Cmnt Bone 40g Simplex P Non Atb Mv - [id number] Implanted:Qty: 1 on 01/04/2023 by Bairon Alejandre MD at [facility] Right: Tibia [employer] 03/22/2025 6191-1-010 / / [id number] Karis 2 Bone Harvesting Kit 520mm Sterile Implanted:Qty: 1 on 07/05/2023 by Ab Nieto MD at [facility] Right: Tibia 09/21/2023 03.404.000 S / / [id number] Description:CHECKED DF 2.5mm Reaming Josias With Ball Tip/ 950mm Sterile Implanted:Qty: 1 on 07/05/2023 by Ab Nieto MD at [facility] Right: Tibia 12/20/2029 351.706S / / [id number] Description:CHECKED DF 14.5mm Reamer Head For Karis 2 Implanted:Qty: 1 on 07/05/2023 by Ab Nieto MD at [facility] Right: Tibia 10/22/2032 03.404.025 S / / [id number] Description:CHECKED DF 15.5mm Reamer Head For Karis 2 Implanted:Qty: 1 on 07/05/2023 by Ab Nieto MD at [facility] Right: Tibia 09/21/2032 03.404.027 S / / [id number] Description:CHECKED DF Cmnt Bone 40g Simplex P Non Atb Mv - [id number] Implanted:Qty: 1 on 07/10/2023 by Ab Nieto MD at [facility] Right: Leg [employer] 09/21/2025 6191-1-010 / / [id number] Description:NO STICKER Panta Nail 10 Mm X 240 Mm Implanted:Qty: 1 on 07/10/2023 by Ab Nieto MD at [facility] Right: Leg MCDONALD-1010-1 0240 / / Description: 07/11/23 Panta 5 Mm Fully Threaded Size 28 Implanted:Qty: 1 on 07/10/2023 by Ab Nieto MD at [facility] Right: Leg MCDONALD-1010-1 428NS / / Description: 07/11/23 Panta 5 Mm Fully Threaded Size 30 Implanted:Qty: 1 on 07/10/2023 by Ab Nieto MD at [facility] Right: Leg MCDONALD-010-14 30NS / / Description: 07/11/23 Panta 5 Mm Fully Threaded Size 54 Implanted:Qty: 1 on 07/10/2023 by Ab Nieto MD at [facility] Right: Leg MCDONALD-1010-1 454NS / / Description: 07/11/23 Bone Matrix 18cc Cerament Synth - [id number] Implanted:Qty: 1 on 07/10/2023 by Ab Nieto MD at [facility] Right: Leg [employer] 01/13/2026 O3613-11 / / [id number] Description:CHECKED Panta 5 Mm Partially Threaded Size 65 Implanted:Qty: 2 on 07/10/2023 by Ab Nieto MD at [facility] Right: Leg MCDONALD-1010-2 665NS / / Description: 07/11/23 Explanted Type Area Option Trader Device Identifier Shelf Expiration Date Model / Serial / Lot K-Wire 9 Plain 0.062 Explanted:Qty: 4 on 04/12/2022 by Bairon Alejandre MD at [facility] Right: Ankle 71-153 / / Description:K-WIRE 9 PLAIN 0.062 K-Wire [place] 10pk - [id number] Explanted:Qty: 3 on 04/12/2022 by Bairon Alejandre MD at [facility] Right: Ankle [employer] [id number] / / Explant Explanted:Qty: 1 on 05/04/2022 by Ab Nieto MD at [facility] Right: Ankle Description:PLATE, 7 SCREWS Explant Explanted:Qty: 1 on 01/04/2023 at [facility] Right: Tibia Description:4 SCREWS, 1 JOSIAS Procedures Procedure Name Priority Date/Time Associated Diagnosis Comments RED CELL MORPHOLOGY Routine 07/09/2025 7 :10 AM CDT Essential (primary) hypertension Secondary hyperparathyroidism of renal origin (HC) Hyperglycemia, unspecified PLATELET ESTIMATE Routine 07/09/2025 7:1 0 AM CDT Essential (primary) hypertension Secondary hyperparathyroidism of renal origin (HC) Hyperglycemia, unspecified MANUAL DIFFERENTIAL Routine 07/09/2025 7 :10 AM CDT Essential (primary) hypertension Secondary hyperparathyroidism of renal origin (HC) Hyperglycemia, unspecified T4,FREE Routine 07/09/2025 7:10 AM CDT Essential (primary) hypertension Secondary hyperparathyroidism of renal origin (HC) Hyperglycemia, unspecified CBC WITH AUTO DIFFERENTIAL Routine 07/09/2025 7:10 AM CDT Essential (primary) hypertension Secondary hyperparathyroidism of renal origin (HC) Hyperglycemia, unspecified TSH WITH REFLEX Routine 07/09/2025 7:10 AM CDT Essential (primary) hypertension Secondary hyperparathyroidism of renal origin (HC) Hyperglycemia, unspecified COMP METABOLIC PANEL Routine 07/09/2025 7:10 AM CDT Essential (primary) hypertension Secondary hyperparathyroidism of renal origin (HC) Hyperglycemia, unspecified HEMOGLOBIN A1C Routine 07/09/2025 7:10 AM CDT Essential (primary) hypertension Secondary hyperparathyroidism of renal origin (HC) Hyperglycemia, unspecified CBC WITH AUTO DIFFERENTIAL Routine 07/09/2025 7:10 AM CDT Essential (primary) hypertension Secondary hyperparathyroidism of renal origin (HC) Hyperglycemia, unspecified SCAN-RADIOLOGY REPORT 04/25/2025 12:00 AM CDT SCAN-RADIOLOGY REPORT 04/25/2025 12:00 AM CDT EXPOSURE (BBF) ANTI HCV STAT 08/05/2020 4:45 PM CDT LIPID PANEL W REFLEX MEASURED LDL Routine 03/12/2019 3:50 PM CDT Type 2 diabetes mellitus with stage 3 chronic kidney disease, without long-term current use of insulin (HC) XR FFDM MAMMO UNI ADDL VIEWS RIGHT (IA) Routine 09/29/2015 2:34 PM AUTO CLOCKS REPAIRER Abnormal mammogram OCCULT BLOOD IFOBT STOOL Routine 05/08/2015 12:01 PM CDT Screening from Last 3 Months or Most Recently Relevant to Health Maintenance Results * (ABNORMAL) CBC WITH AUTO DIFFERENTIAL (07/09/2025 7:10 AM CDT) WHITE BLOOD COUNT 7.1 4.5 - 11.0 thou/cu mm 07/09/2025 9:45 AM [facility] RED BLOOD COUNT 3.05(L) 4.00 - 5.20 mil/cu mm 07/09/2025 9:45 AM T [facility] HEMOGLOBIN 10.2(L) 12.0 - 16.0 g/dL 07/09/2025 9:45 AM T [facility] HEMATOCRIT 32.6(L) 33.0 - 51.0 % 07/09/2025 9:45 AM [facility] MCV 107(H) 80 - 100 fL 07/09/2025 9:45 AM [facility] MCH 33.4 26.0 - 34.0 pg 07/09/2025 9:45 AM [facility] MCHC 31.3(L) 32.0 - 36.0 g/dL 07/09/2025 9:45 AM [facility] RDW 13.8 11.5 - 15.5 % 07/09/2025 9:45 AM [facility] PLATELET COUNT 133(L) 140 - 440 thou/cu mm 07/09/2025 9:45 AM [facility] MPV 12.2(H) 6.5 - 11.0 fL 07/09/2025 9:45 AM [facility] Blood BLOOD SPECIMEN / Unknown Venipuncture / Unknown 07/09/2025 7:10 AM CDT 07/09/2025 8:35 AM CDT us Serene Velázquez MD HEMATOLOGY Final Result [facility] [address] [place], [place] [id number] * HEMOGLOBIN A1C (07/09/2025 7:10 AM CDT) [facility] Signature HEMOGLOBIN A1C SCREENING 5.8 <=6.4 % 07/09/2025 8:47 AM T [facility] Blood BLOOD SPECIMEN / Unknown Venipuncture / Unknown 07/09/2025 7:10 AM CDT 07/09/2025 8:35 AM CDT Narrative [facility] - 07/09/2025 8:47 AM CDT (<5.7%) Normal (5.7% to 6.4%) Indicates prediabetes (>=6.5%) Confirms diabetes Falsely low levels may be seen with: Recent Transfusion, Recent Significant Blood Loss, Hemolytic Diseases, or Falsely elevated levels may be seen with: Untreated Anemias, Splenectomy Serene Velázquez MD CHEMISTRY Final Result Performing Organization Address [facility] Co de Phone Number [facility] [address] [place] [address] * RED CELL MORPHOLOGY (07/09/2025 7:10 AM CDT) Pathologist [facility] RBC COMMENT RBC morphology appears normal RBC morphology appears normal, RBC morphology within normal limits for newborns. 07/09/2025 9:45 AM CDT [facility] Blood BLOOD SPECIMEN / Unknown Venipuncture / Unknown 07/09/2025 7:10 AM CDT 07/09/2025 8:35 AM CDT Serene Velázquez MD HEMATOLOGY Final Result Performing Organization Address [facility] Co de Phone Number [facility] [address] [place] [address] * PLATELET ESTIMATE (07/09/2025 7:10 AM CDT) Pathologist [facility] PLATELET ESTIMATE Adequate Adequate, No estimate 07/09/2025 9:45 AM CDT [facility] Blood BLOOD SPECIMEN / Unknown Venipuncture / Unknown 07/09/2025 7:10 AM CDT 07/09/2025 8:35 AM CDT Serene Velázquez MD HEMATOLOGY Final Result Performing Organization Address City/[facility]/ZIP Co de Phone Number [facility] [address] [place] [address] * (ABNORMAL) TSH WITH REFLEX (07/09/2025 7:10 AM CDT) TSH 5.04(H) 0.27 - 4.20 uIU/mL 07/09/2025 9:16 AM [facility] Blood BLOOD SPECIMEN / Unknown Venipuncture / Unknown 07/09/2025 7:10 AM CDT 07/09/2025 8:35 AM CDT [facility] - 07/09/2025 9:16 AM CDT In Adults, TSH values between 5.00 and 10.00 uIU/ml do not necessarily indicate the presence of Hypothyroidism. Correlation with clinical findings such as presence of goiter and/or Thyroperoxidase (TPO) Antibody may be helpful. For more information please refer to ZEKE 2004; 291: 228-238. Serene Velázquez MD CHEMISTRY Final Result [facility] [address] [place] [address] * (ABNORMAL) MANUAL DIFFERENTIAL (07/09/2025 7:10 AM CDT) Pathologist [facility] % NEUTROPHILS 81.0 % 07/09/2025 9:45 AM [facility] % LYMPHOCYTES 12.0 % 07/09/2025 9:45 AM [facility] % MONOCYTES 5.0 % 07/09/2025 9:45 AM [facility] % EOSINOPHILS 1.0 % 07/09/2025 9:45 AM [facility] % BASOPHILS 0.0 % 07/09/2025 9:45 AM [facility] % MYELOCYTES 1.0(H) <0.1 % 07/09/2025 9:45 AM [facility] NEUTROPHILS ABSOLUTE 5.8 1.7 - 7.0 thou/cu mm 07/09/2025 9:45 AM [facility] LYMPHOCYTES ABSOLUTE 0.9 0.9 - 2.9 thou/cu mm 07/09/2025 9:45 AM CDT [facility] MONOCYTES ABSOLUTE 0.4 <0.9 thou/cu mm 07/09/2025 9:45 AM CDT [facility] EOSINOPHILS ABSOLUTE 0.1 <0.5 thou/cu mm 07/09/2025 9:45 AM CDT [facility] BASOPHILS ABSOLUTE 0.0 <0.3 thou/cu mm 07/09/2025 9:45 AM CDT [facility] ABSOLUTE MYELOCYTES 0.1(H) <=0.0 thou/cu mm 07/09/2025 9:45 AM CDT [facility] Blood BLOOD SPECIMEN / Unknown Venipuncture / Unknown 07/09/2025 7:10 AM CDT 07/09/2025 8:35 AM CDT Serene Velázquez MD HEMATOLOGY Final Result Performing Organization Address City/[facility]/ZIP Co de Phone Number [facility] [address] [place] [address] * (ABNORMAL) T4,FREE (07/09/2025 7:10 AM CDT) T4,FREE 0.92(L) 0.93 - 1.70 ng/dL 07/09/2025 1:13 PM CDT [facility] Blood BLOOD SPECIMEN / Unknown Venipuncture / Unknown 07/09/2025 7:10 AM CDT 07/09/2025 8:35 AM CDT Serene Velázquez MD CHEMISTRY Final Result [facility] [address] [place] [address], * (ABNORMAL) COMP METABOLIC PANEL (07/09/2025 7:10 AM CDT) SODIUM 138 136 - 145 mmol/L 07/09/2025 9:16 AM CDT [facility] POTASSIUM 5.1 3.5 - 5.1 mmol/L 07/09/2025 9:16 AM [facility] CHLORIDE 97(L) 98 - 107 mmol/L 07/09/2025 9:16 AM [facility] CO2,TOTAL 24 22 - 29 mmol/L 07/09/2025 9:16 AM [facility] ANION GAP 17 5 - 18 07/09/2025 9:16 AM [facility] GLUCOSE 126(H) 70 - 99 mg/dL 07/09/2025 9:16 AM [facility] CALCIUM 9.7 8.8 - 10.4 mg/dL 07/09/2025 9:16 AM [facility] Comment: Reference ranges for this test were updated on 08/27/2024 to reflect our healthy population more accurately. Reference range changes are not retroactively applied to results, but previous results using the same methodology can be interpreted in the context of the new reference range. BUN 52(H) 8 - 23 mg/dL 07/09/2025 9:16 AM [facility] CREATININE 5.09(H) 0.50 - 0.90 mg/dL 07/09/2025 9:16 AM [facility] BUN/CREAT RATIO 10 10 - 20 9:16 AM [facility] eGFR 8(L) >90 mL/min/1. 73m2 07/09/2025 9:16 AM [facility] Comment:As of 2022, eG FR is calculated by the CKD-EPI creatinine equation without race adjustment. eGFR can be influenced by muscle mass, exercise, and diet. The reported eGFR is an estimation only and is only applicable if the renal function is stable. ALBUMIN 4.0 4.0 - 4.9 g/dL 07/09/2025 9:16 AM [facility] PROTEIN,TOTAL 6.1 6.0 - 8.0 g/dL 07/09/2025 9:16 AM [facility] BILIRUBIN,TOTAL 0.3 0.0 - 1.2 mg/dL 07/09/2025 9:16 AM [facility] ALK PHOSPHATASE 265(H) 35 - 104 IU/L 07/09/2025 9:16 AM CDT [facility] ALT (SGPT) 25 10 - 35 IU/L 07/09/2025 9:16 AM CDT [facility] AST (SGOT) 18 10 - 35 IU/L 07/09/2025 9:16 AM CDT [facility] Blood BLOOD SPECIMEN / Unknown Venipuncture / Unknown 07/09/2025 7:10 AM CDT 07/09/2025 8:35 AM CDT us Serene Velázquez MD CHEMISTRY Final Result [facility] [address] [place] [address] * SCAN-RADIOLOGY REPORT (04/25/2025 12:00 AM CDT) Only the most recent of2 resultswithin the time period is included. Anatomical Region Laterality Modality Other us Scanner OTHER Final Result * Patient Source ANTI HCV (08/05/2020 4:45 PM CDT) HEPATITIS C ANTIBODY Non-React luis Non-React luis 08/06/2020 12:46 PM CDT [facility] Comment:Antibodies to HCV no t detected; does not exclude the possibility of exposure to HCV. Blood BLOOD SPECIMEN / Unknown Line/Port / Unknown 08/05/2020 4:45 PM CDT 08/05/2020 4:53 PM CDT us Ne Berg MD SEND OUTS Final Result [facility] [address] [place] [address], [place] * (ABNORMAL) LIPID PANEL W REFLEX MEASURED LDL (03/12/2019 3:50 PM CDT) CHOLESTEROL,TOTAL 217(H) 100 - 199 mg/dL 03/12/2019 11:[address] [facility] TRIGLYCERIDES 221(H) <150 mg/dL 03/12/2019 11:[address] [facility] HDL CHOLESTEROL 51 >40 mg/dL 9 11:[address] [facility] NON-HDL CHOLESTEROL 166(H) <145 mg/dl 03/12/2019 11:[address] [facility] CHOL/HDL RATIO 4.25 <4.50 03/12/2019 11:[address] [facility] LDL CHOLESTEROL 122 <=130 mg/dL 03/12/2019 11:[address] [facility] PROVIDER ORDERED STATUS RANDOM 03/12/2019 11:[address] [facility] Blood BLOOD SPECIMEN / Unknown Butterfly / Unknown 03/12/2019 3:50 PM CDT 03/12/2019 3:50 PM CDT us Samir Rascon MD CHEMISTRY Final Re sult [facility] [address] [place] [address], [place] * XR FFDM MAMMO UNI ADDL VIEWS RIGHT (09/29/2015 2:34 PM AUTO CLOCKS REPAIRER) Anatomical Region Laterality Modality BREASTS, Breast Right Right Mammograph y Impressions 09/29/2015 3:10 PM AUTO CLOCKS REPAIRER BI-RADS Category 4: Suspicious RECOMMENDATIONS: Stereotactic biopsy. NOTE: I discussed today's imaging findings with the patient. The biopsy will be scheduled through the clinic career information specialist prior to the patient leaving the clinic today. Zachary Travis D.O. Diagnostic Radiologist [email or web address] / Narrative 09/29/2015 3:10 PM AUTO CLOCKS REPAIRER ADDITIONAL VIEWS OF THE RIGHT BREAST, 09/29/2015 [...] A) Negative, Invalid 05/08/2015 12:11 PM CDT [facility] Stool specimen (specimen) STOOL SPECIMEN / Unknown Non-Blood / Unknown 05/08/2015 12:01 PM CDT 05/08/2015 12:02 PM CDT [facility] Final R esult [facility] [address] [place] [address], from Last 3 Months or Most Recently Relevant to Health Maintenance Insurance [facility] MEDICARE PART A HB ONLY MEDICARE PART B HB ONLY BLUE ADVANTAGE [place]ARE [place] BLUE HB ONLY [place] BLUE MR PB ONLY MEDICARE PPS Advance Directives Documents on File Type Date Recorded 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 [facility] 05/17/19
--- OUTSIDE RECORDS SUMMARY | 2025-07-14 15:54 | XMS_ITS ---
Author Organization [facility] Address [address] [place] [address] Care Team Providers Care Stock Taker Name Role Phone Elsewhere, Pcp Primary Care Provider Unavailabl e Procedures Procedure Name Priority Date/Time Associated Diagnosis Comments BASIC METABOLIC PANEL, S/P Routine 07/26/2024 3:29 AM CDT from Last 3 Months or Most Recently Relevant to Health Maintenance Allergies Active Allergy Reactions Criticality Noted Date Comments Aspirin Other (see comments) 12/05/2024 Per SNF Astemizole Rash 06/15/2021 Other reaction(s): [place]ushing Benzalkonium [place] Nausea And Vomiting,Nausea Only 06/15/2021 Brimonidine Acute Interstitial Nephritis,Other (see comments) High 06/15/2021 Other reaction(s): Nephritis Cinacalcet Hives only, no other systemic symptoms,Hives (Reselect Reaction) 02/16/2021 [place] Rash 06/15/2021 Cranberry Angioedema,Edema (Reselect Reaction),Edema, suggestive of allergic reaction, i.e., lip, tongue, or throat swelling,Rash High 08/13/2010 Propoxyphene N-Acetaminophen GI intolerance 07/25/2024 Flu Vac On8849-31(36mo,Up)(Pf) Hives (Reselect Reaction) Medium 07/25/2024 Hexylnicotinate Nausea And Vomiting,Nausea Only 06/15/2021 Hydrocodone-Acetaminoph en Rash High 01/22/2018 Pt became itchy around the mouth and then violently threw up after taking 1 [place] post surgery Other reaction(s): Flushing Pt became itchy around the mouth and then violently threw up after taking 1 [place] post surgery Iodinated Contrast Media Hives with [...] Itching Levothyroxine Other (see comments) 12/05/2024 Per [facility] Lisinopril Renal Failure High 03/07/2007 Other reaction(s): Renal Failure Methacholine GI bleeding 06/15/2021 Other reaction(s): GI Bleeding Morphine GI intolerance,Nausea And Vomiting,Nausea Only 11/08/2012 Naproxen Other (see comments) 12/05/2024 Per [facility] Oxycodone Other (see comments) 12/05/2024 Per [facility] Pentazocine Nausea And Vomiting,Nausea Only,GI intolerance 08/13/2010 [...] pain Indication: Acute Pain Exception. 5 Active oxyCODONE (Roxicodone) 5 mg immediate release [...] drink = 0.6 oz pur e alcohol) [facility] Utilities Answer Date Recorded In the past 12 months has [employer], gas, oil, or water [employer] threatened to shut off services in your [...] your living situation today? I have a [facility] place to live 08/24/2024 Comments No Sex and Gender Information Value Date Recorded Sex Assigned at Female 08/24/2024 1:36 PM CDT Legal Sex Female 11:47 AM TECHNICAL SUPPORT ENGINEER Gender Identity Female 08/24/2024 1:36 PM CDT Sexual Orientation Straight 08/24/2024 1: 36 PM CDT Last Filed Vital Signs Vital Sign Reading Time Taken Comments Blood Pressure 115/80 04/10/2025 2:43 PM CDT Pulse 93 04/10/2025 3:03 PM CDT Temperature 36.1 C (96.9 F) 12/06/2024 7:40 AM TECHNICAL SUPPORT ENGINEER Respiratory Rate 16 12/06/2024 7:40 AM TECHNICAL SUPPORT ENGINEER Oxygen Saturation 99% 04/10/2025 3:03 PM CDT Inhaled Oxygen Concentration - - Weight 111 kg (245 lb) 12/06/2024 7:40 AM TECHNICAL SUPPORT ENGINEER Height 157.5 cm (5' 2) 07/25/2024 2:09 PM CDT Body Mass Index 44.81 07/25/2024 2:09 PM CDT
--- OUTSIDE RECORDS SUMMARY | 2025-07-14 15:54 | XMS_ITS | Encounter Summary ---
Author Organization [facility] Address [address] [place] [address] Care Team Providers Care Car Unloader Helper Name Role Phone Samir Rascon MD Primary Care Provider Des le Encounter Details Date Type Department Care Team (Late st Contact Info) Description 06/16/2025 Results Follow-Up [facility] [place] [address] [facility] [address] [place] [address] Nicki Katz, ANN [address] [facility] [address] [place] [address] Social History Tobacco Use Types Packs/Day Years Used Date Smoking Tobacco: Never Assessed Comments Unknown Sex and Gender Information Value Date Recorded Sex Assigned at Not on file Legal Sex Female 7:04 PM EDT Gender Identity Not on file Sexual Orientation Not on file documented as of this encounter Plan of Treatment Not on file documented as of this encounter Visit Diagnoses Not on filedocumented in this encounter Care Teams Car Unloader Helper Relationship Specialty Start Date End Date Samir Rascon MD PCP - General 07/08/19 documented as of this encounter
--- OUTSIDE RECORDS SUMMARY | 2025-07-14 15:54 | XMS_ITS | Clinical Summary ---
Author Organization [facility] Facility Address [address] [facility] [address] [place] [address] Care Team Providers Care Bank Teller Machine Mechanic Name Role Phone Samir Rascon MD Primary Care Provider Unavailab le Active Problems Problem Noted Date Diagnosed Date Abscess of left lower limb 07/02/2024 End stage renal disease 07/02/2024 Morbid obesity 07/02/2024 Non-healing surgical wound 07/02/2024 Obstructive sleep apnea syndrome 07/02/2024 Restrictive lung disease 07/02/2024 Hyperparathyroidism due to renal insufficiency 0 07/02/2024 Septic shock 07/02/2024 Moderate persistent asthma 07/02/2024 Dependence on renal dialysis 07/02/2024 Encounters Date Type Department Care Team Description 07/09/2025 Orders Only [facility] [place] [address] [place] [phone] Wesley Herrera MD 07/02/2025 Orders Only [facility] [place] [address] [place] [phone] Wesley Herrera MD 06/30/2025 Orders Only [facility] [place] [address] [place] [phone] Wesley Herrera MD 06/27/2025 Treatment [facility] [address] [place] [address] Tiffany Khalil APRN-DESIGN ENG End stage renal disease; Dependence on renal dialysis 06/25/2025 Orders Only [facility] [place] [address] [place] [phone] Wesley Herrera MD 06/18/2025 Orders Only [facility] [place] [address] [place] [phone] Wesley Herrera MD 06/16/2025 Results Follow-Up [facility] [place] [address] [place] [phone] Nicki Katz RN 06/11/2025 Orders Only [facility] [place] [address] [place] [phone] Wesley Herrera MD 06/11/2025 Treatment [facility] [address] [place] [phone] Tiffany Khalil APRN-DESIGN ENG End stage renal disease; Dependence on renal dialysis 05/28/2025 Orders Only [facility] [place] [address] [place] [phone] Wesley Herrera MD 05/28/2025 Treatment [facility] [address] [place] [phone] Wesley Herrera MD End stage renal disease; Dependence on renal dialysis 05/23/2025 Orders Only [facility] [place] [address] [place] [phone] Wesley Herrera MD 05/22/2025 Telephone [facility] [place] [address] [place] [phone] Annalisa Salcido RN 05/22/2025 Orders Only [facility] [place] [address] [place] [phone] Wesley Herrera MD Abdominal hernia without gangrene, not otherwise specified (Primary Dx) 05/21/2025 Treatment [facility] [address] [place] [phone] Wesley Herrera MD End stage renal disease; Dependence on renal dialysis 05/14/2025 Treatment [facility] [place] [address] [place] [address] Tiffany Khalil APRN-[place] End stage renal disease; Dependence on renal dialysis 05/02/2025 Orders Only [facility] [place] [address] [place] [address] Wesley Herrera MD 04/28/2025 Orders Only [facility] [address] [place] [address] Wesley Herrera MD 04/23/2025 Orders Only [facility] [address] [place] [address] Wesley Herrera MD 04/14/2025 Treatment [facility] [place] [address] [place] [address] Wesley Herrera MD End stage renal disease; Dependence on renal dialysis from Last 3 Months Social History Tobacco Use Types Packs/Day Years Used Date Smoking Tobacco: Never Assessed Comments Unknown Sex and Gender Information Value Date Recorded Sex Assigned at Not on file Legal Sex Female 7:04 PM EDT Gender Identity Not on file Sexual Orientation Not on file Plan of Treatment Health Maintenance Due Date Last Done Comments Breast Cancer Screening 1950 Hepatitis B Vaccine (1 of 5 - Risk Dialysis 4-dose series) 1971 02/26/2020, 01/22/2020, 01/23/2019, Additional history exists Colorectal Cancer Screening: Annual FOBT 2000 Colorectal Cancer Screening: Colonoscopy 2000 Colorectal Cancer Screening: Sigmoidoscopy 2000 Diabetes: Hemoglobin A1C 08/19/2024 Diabetes: Ophthalmology Exam 08/19/2024 Diabetes: Pedal Pulse Checked 08/19/2024 Diabetes: Sensory Foot Exam 08/19/2024 Diabetes: Visual Foot Exam 08/19/2024 Influenza Vaccine (#1) 2025 Pneumococcal Vaccine: 50+ Years Completed 8, 11/06/2017 Pneumococcal Vaccine: Peds ( 0 to 5 Years) and At-Risk Patients (6 to 49 Years) Discontinued 05/23/2018, 11/06/2017 Procedures Procedure Name Priority Date/Time Associated Diagnosis Comments HEMATOLOGY Routine 07/09/2025 HEMATOLOGY Routine 07/02/2025 CHEMISTRY Routine 06/30/2025 [facility] RESULTS Routine 06/25/2025 HD KINETICS Routine 06/25/2025 POST CHEMISTRY Routine 06/25/2025 CHEMISTRY Routine 06/25/2025 HEMATOLOGY Routine 06/25/2025 IMMUNO CHEMISTRY Routine 06/25/2025 HEMATOLOGY Routine 06/18/2025 AMB REFERRAL TO GENERAL SURGERY Routine 06/16/2025 10:16 AM CDT Abdominal hernia without gangrene, not otherwise specified HEMATOLOGY Routine 06/11/2025 CULTURE,CATHETER EXIT SITE Routine 06/11/2025 [facility] RESULTS Routine 05/28/2025 HD KINETICS Routine 05/28/2025 POST CHEMISTRY Routine 05/28/2025 CHEMISTRY Routine 05/28/2025 CHEMISTRY Routine 05/28/2025 HEMATOLOGY Routine 05/28/2025 IMMUNO CHEMISTRY Routine 05/23/2025 HEMATOLOGY Routine 05/23/2025 CHEMISTRY Routine 05/02/2025 [facility] RESULTS Routine 04/28/2025 HD KINETICS Routine 04/28/2025 POST CHEMISTRY Routine 04/28/2025 CHEMISTRY Routine 04/28/2025 [facility] RESULTS Routine 04/23/2025 HD KINETICS Routine 04/23/2025 CHEMISTRY Routine 04/23/2025 HEMATOLOGY Routine 04/23/2025 IMMUNO CHEMISTRY Routine 04/23/2025 CHEMISTRY Routine 04/23/2025 POST CHEMISTRY Routine 04/23/2025 from Last 3 Months Results * (ABNORMAL) HEMATOLOGY (07/09/2025) Only the most recent of8 resultswithin the time period is included. Hemoglobin 9.9(L) 12.0 - 16.0 g/dL [facility] Hemoglobin x 3 29.7(L) 36.0 - 48.0 % [facility] 07/09/2025 07/10/2025 2:5 2 AM CDT Narrative [facility] - 07/10/2025 Unless otherwise specified, test(s) performed at: [facility], [address] [place] [address], [place] [address] PSYCHIC READER: Dwayne Musa M.D., Ph.D For any questions, please call customer service at FREQUENCY:OTHER Resulting Agency Comment Specimen source: Blood us Wesley Herrera MD LAB BLOOD ORDERABLES Final Re sult [facility] See order comments or contact performing lab Unknown, [place] * (ABNORMAL) [facility] (06/30/2025) Only the most recent of8 resultswithin the time period is included. PTH 829(H) 16 - 80 pg/mL [facility] 06/30/2025 07/01/2025 2:2 8 AM CDT Narrative [facility] 07/01/2025 Unless otherwise specified, test(s) performed at: [facility], [address] [place] [address], [place] [address] PSYCHIC READER: Dwayne Musa M.D., Ph.D For any questions, please call customer service at FREQUENCY:OTHER Resulting Agency Comment Specimen source: Plasma Wesley Herrera MD LAB BLOOD ORDERABLES Final Re sult Performing Organization Address [facility] de Phone Number [facility] See order comments or contact performing lab Unknown, [place] * HD KINETICS (06/25/2025) Only the most recent of4 resultswithin the time period is included. % Urea Reduction 79 65 - 80 % [facility] 06/25/2025 06/26/2025 11: 21 AM CDT Narrative Resulting Agency Comment Specimen source: Plasma Wesley Herrera MD LAB BLOOD ORDERABLES Final Re sult Performing Organization Address [facility] de Phone Number [facility] See order comments or contact performing lab Unknown, [place] * POST CHEMISTRY (06/25/2025) Only the most recent of4 resultswithin the time period is included. BUN Post Dialysis 15 6 - 19 mg/dL [facility] 06/25/2025 06/26/2025 11: 21 AM CDT Narrative [facility] - 06/26/2025 Unless otherwise specified, test(s) performed at: [facility], [address] [place] [address], [place] [address] PSYCHIC READER: Dwayne Musa M.D., Ph.D For any questions, please call customer service at FREQUENCY:MONTHLY Resulting Agency Comment Specimen source: Plasma Wesley Herrera MD LAB BLOOD ORDERABLES Final Re sult Performing Organization Address City/[facility]/ZIP Co de Phone Number [facility] See order comments or contact performing lab Unknown, [place] * IMMUNO CHEMISTRY (06/25/2025) Only the most recent of3 resultswithin the time period is included. Hep B Surface Ag Negative Negative [facility] 06/25/2025 06/26/2025 8:4 9 AM CDT Narrative [facility] - 06/26/2025 Unless otherwise specified, test(s) performed at: [facility], [address] [place] [address], [place] [address] PSYCHIC READER: Dwayne Musa M.D., Ph.D For any questions, please call customer service at FREQUENCY:MONTHLY Resulting Agency Comment Specimen source: Plasma Wesley Herrera MD LAB BLOOD ORDERABLES Final Re sult Performing Organization Address [facility] Co de Phone Number [facility] See order comments or contact performing lab Unknown, [place] * [facility] Results (06/25/2025) Only the most recent of4 resultswithin the time period is included. eKdrt/V 1.60 [facility] eKt/V ([place]) 1.56 [facility] eNPCR 1.24 [facility] eKt/V Gotch 1.60 [facility] PCR 71.86 [facility] spKt/V ([place]augirdas II) 1.79 [facility] nPCR_HD 1.33 [facility] WSTDKT/V 2.6 [facility] spKt/V Gotch 1.[address] [facility] 06/25/2025 06/25/2025 [facility] Ordering Provider LAB BLOOD ORDERABLES Final Result [facility] Contact Performing lab Unknown, [place] * Ambulatory referral to General Surgery (06/16/2025 10:16 AM CDT) Wesley Herrera MD OUTPATIENT REFERRAL ORDERABLE S Final Result * Culture, Catheter Exit Site (06/11/2025) Gram Stain, Catheter Exit Site See below [facility] Comment: Rare WBC Many Gram Positive Cocci In Pairs,Chains And Groups Isolate #1, Catheter Exit Site See below [facility] Comment: Methicillin Resistant Staphylococcus aureus Heavy Growth This isolate does not demonstrate inducible Clindamycin resistance in vitro. Based on CLSI guidelines, testing of all Staphylococcus isolates includes Penicillin, Oxacillin and screening with Cefoxitin. Since this isolate is resistant to all, it is considered resistant to all B-lactams (Penicillin, Cephems/Cephalosporins, and Carbapenems), including B-lactamase inhibitor combinations. Therefore further testing of Cephems (Cefazolin and Ceftazidime) is not advised. ANTIBIOTIC IMAN (mcg/mL) SENSITIVITY PENICILLIN >=0.5 R CLINDAMYCIN <=0.25 S ERYTHROMYCIN >=8.0 R GENTAMICIN <=0.5 S LEVOFLOXACIN 4.0 I LINEZOLID 2.0 S MOXIFLOXACIN 2.0 S OXACILLIN >=4.0 R RIFAMPIN <=0.5 S TETRACYCLINE <=1.0 S TRIMETHOPRIM/SULFA <=10.0 S VANCOMYCIN 1.0 S Culture, Catheter Exit Site Complete [facility] 06/11/2025 06/13/2025 6:3 4 AM CDT Narrative [facility] - 06/15/2025 Unless otherwise specified, test(s) performed at: [facility], [address] [place] [address], [place] [address] PSYCHIC READER: Dwayne Musa M.D., Ph.D For any questions, please call customer service at FREQUENCY:OTHER Resulting Agency Comment Specimen source: Catheter Exit Site/CVCATHETER EXIT Wesley Herrera MD LAB MICROBIOLOGY - GENERAL OR DERABLES Final Result [facility] See order comments or contact performing lab Unknown, [place] from Last 3 Months Insurance [facility] Medicare Medicaid [place] Care Teams Bank Teller Machine Mechanic Relationship Specialty Start Date End Date Samir Rascon MD PCP - General 07/08/19
--- OUTSIDE RECORDS SUMMARY | 2025-07-14 15:54 | XMS_ITS | Encounter Summary ---
Author Organization [facility] Address [address] [facility] [address] [place] [address] Care Team Providers Care Associate Project Manager Name Role Phone Samir Rascon MD Primary Care Provider Unavail le Encounter Details Date Type Department Care Team (Late st Contact Info) Description 06/30/2025 Orders Only [facility] [place] [address] [facility] [address] [place] [address] Wesley Herrera MD [address] [place] [address] Social History Tobacco Use Types Packs/Day Years Used Date Smoking Tobacco: Never Assessed Comments Unknown Sex and Gender Information Value Date Recorded Sex Assigned at Not on file Legal Sex Female 7:04 PM EDT Gender Identity Not on file Sexual Orientation Not on file documented as of this encounter Plan of Treatment Not on file documented as of this encounter Procedures Procedure Name Priority Date/Time Associated Diagnosis Comments CHEMISTRY Routine 06/30/2025 documented in this encounter Results * (ABNORMAL) [facility] Chemistry (06/30/2025) PTH 829(H) 16 - 80 pg/mL [facility] 06/30/2025 07/01/2025 2:2 8 AM CDT Narrative [facility] - 07/01/2025 Unless otherwise specified, test(s) performed at: [facility], [address] [place] [address], [place] [address] PIPELINE OPERATOR: Dwayne Musa M.D., Ph.D For any questions, please call customer service at FREQUENCY:OTHER Resulting Agency Comment Specimen source: Plasma us Wesley Herrera MD LAB BLOOD ORDERABLES Final Re sult [facility] See order comments or contact performing lab Unknown, [place] documented in this encounter Visit Diagnoses Not on filedocumented in this encounter Care Teams Associate Project Manager Relationship Specialty Start Date End Date Samir Rascon MD PCP - General 07/08/19 documented as of this encounter
--- OUTSIDE RECORDS SUMMARY | 2025-07-14 15:54 | XMS_ITS | Encounter Summary ---
Author Organization [facility] Address [address] [facility] [place] [address] Care Team Providers Care Hand Sander Name Role Phone Samir Rascon MD Primary Care Provider Unavailab crooks Encounter Details Date Type Department Care Team (Late st Contact Info) Description 06/25/2025 Orders Only [facility] [place] [address] [place] [address] Wesley Herrera MD [address] [place] [address] Social History Tobacco Use Types [...] Procedure Name Priority Date/Time Associated Diagnosis Comments HD KINETICS Routine 06/25/2025 POST CHEMISTRY Routine 06/25/2025 IMMUNO CHEMISTRY Routine 06/25/2025 HEMATOLOGY Routine 06/25/2025 CHEMISTRY Routine 06/25/2025 [facility] RESULTS Routine 06/25/2025 documented in this encounter Results * [facility] Results (06/25/2025) [facility] eKdrt/V 1.60 [facility] eKt/V ([place]) 1.56 [facility] eNPCR 1.24 [facility] eKt/V Gotch 1.60 [facility] PCR 71.86 [facility] spKt/V (Daugirdas II) 1.79 [facility] nPCR_HD 1.33 [facility] WSTDKT/V 2.6 [facility] spKt/V Gotch 1.84 [facility] 06/25/2025 06/25/2025 [facility] Ordering Provider LAB BLOOD ORDERABLES Final Result [facility] Contact Performing lab Unknown, [place] * HD KINETICS (06/25/2025) Pathologist [facility] % Urea Reduction 79 65 - 80 % [facility] 06/25/2025 06/26/2025 11: 21 AM CDT Narrative Resulting Agency Comment Specimen source: Plasma Wesley Herrera MD LAB BLOOD ORDERABLES Final Re sult [facility] See order comments or contact performing lab Unknown, [place] * POST CHEMISTRY (06/25/2025) BUN Post Dialysis 15 6 - 19 mg/dL [facility] 06/25/2025 06/26/2025 11: 21 AM CDT Narrative [facility] - 06/26/2025 Unless otherwise specified, test(s) performed at: [facility], [address] [place] [id number] GLOBAL SECURITY ARCHITECT: Dwayne Musa M.D., Ph.D For any questions, please call customer service at FREQUENCY:MONTHLY Resulting Agency Comment Specimen source: Plasma Wesley Herrera MD LAB BLOOD ORDERABLES Final Re sult [facility] See order comments or contact performing lab Unknown, [place] * (ABNORMAL) [facility] (06/25/2025) BUN 72(H) 6 - 19 mg/dL [facility] Creatinine 5.12(H) 0.60 - 1.30 mg/dL [facility] BUN/Creatinine Ratio 14.1 10.0 - 20.0 [facility] Sodium 136 136 - 145 mEq/L [facility] Potassium 4.9 3.5 - 5.1 mEq/L [facility] Chloride 100 96 - 108 mEq/L [facility] Bicarbonate (CO2) 20 20 - 31 mEq/L [facility] Calcium 8.8 8.7 - 10.4 mg/dL [facility] Comment: Please note change in reference range. Corrected Calcium 8.8 8.7 - 10.4 mg/dL [facility] Comment: Corrected Calcium is not equivalent to measured Ionized Calcium. Phosphorus 5.5(H) 2.6 - 4.5 mg/dL [facility] Calcium Phosphorus Product 48 0 - 54 [facility] Calcium Phosporus Product, Cor 48 0 - 54 [facility] Total Protein 6.0 6.0 - 8.5 g/dL [facility] Albumin 4.0 3.5 - 5.2 g/dL [facility] Globulin, Total 2.0 2.0 - 4.0 g/dL [facility] A/G Ratio 2.0 1.0 - 2.0 [facility] Magnesium 2.1 1.6 - 2.6 mg/dL [facility] Iron 195(H) 30 - 160 mcg/dL [facility] UIBC 33(L) 155 - 355 mcg/dL [facility] TIBC 228 185 - 515 mcg/dL [facility] Iron Saturation (TSat) 86(H) 20 - 55 % [facility] 06/25/2025 06/26/2025 12: 39 PM CDT Narrative [facility] - 06/26/2025 Unless otherwise specified, test(s) performed at: [facility], [address] [place] [address], [place] [address] GLOBAL SECURITY ARCHITECT: Dwayne Musa M.D., Ph.D For any questions, please call customer service at FREQUENCY:MONTHLY Resulting Agency Comment Specimen source: Serum us Wesley Herrera MD LAB BLOOD ORDERABLES Final Re sult [facility] See order comments or contact performing lab Unknown, [place] * (ABNORMAL) HEMATOLOGY (06/25/2025) Neutrophils 81.1(H) 40.0 - 75.0 % [facility] Lymphocytes Relative 9.3(L) 19.0 - 48.0 % [facility] Monocytes 5.5 3.0 - 10.0 % [facility] Eosinophils Relative 2.4 0.0 - 7.0 % [facility] Basophils Relative 0.7 0.0 - 1.5 % [facility] CHARMAINE 1.0 0.0 - 4.0 % [facility] WBC 8.67 4.80 - 10.80 1000/mcL [facility] RBC 3.24(L) 4.20 - 5.40 mill/mcL [facility] Hematocrit 34.3(L) 37.0 - 47.0 % [facility] MCV 106(H) 80 - 100 fl [facility] MCH 34.5(H) 27.0 - 31.0 pg [facility] MCHC 32.6 30.0 - 36.0 g/dL [facility] RDW 14.0 11.5 - 14.5 % [facility] Hemoglobin 11.2(L) 12.0 - 16.0 g/dL [facility] Hemoglobin x 3 33.6(L) 36.0 - 48.0 % [facility] Platelets 165 130 - 400 1000/mcL [facility] 06/25/2025 06/26/2025 10: 01 AM CDT Narrative [facility] - 06/26/2025 Unless otherwise specified, test(s) performed at: [facility], [address] [place] [address], [place] [address] GLOBAL SECURITY ARCHITECT: Dwayne Musa M.D., Ph.D For any questions, please call customer service at FREQUENCY:MONTHLY Resulting Agency Comment Specimen source: Blood us Wesley Herrera MD LAB BLOOD ORDERABLES Final Re sult [facility] See order comments or contact performing lab Unknown, [place] * IMMUNO CHEMISTRY (06/25/2025) Pathologist [facility] Hep B Surface Ag Negative Negative [facility] 06/25/2025 06/26/2025 8:4 9 AM CDT Narrative [facility] - 06/26/2025 Unless otherwise specified, test(s) performed at: [facility], [address] [place] [address], [place] [address] GLOBAL SECURITY ARCHITECT: Dwayne Musa M.D., Ph.D For any questions, please call customer service at FREQUENCY:MONTHLY Resulting Agency Comment Specimen source: Plasma us Wesley Herrera MD LAB BLOOD ORDERABLES Final Re sult [facility] See order comments or contact performing lab Unknown, [place] documented in this encounter Visit Diagnoses Not on filedocumented in this encounter Care Teams Hand Sander Relationship Specialty Start Date End Date Samir Rascon MD PCP - General 07/08/19 documented as of this encounter
--- OUTSIDE RECORDS SUMMARY | 2025-07-14 15:54 | XMS_ITS | Encounter Summary ---
Author Organization [facility] Address [address] [place] [address] Care Team Providers Care Associate Store Manager Name Role Phone Samir Rascon MD Primary Care Provider Des crooks Encounter Details Date Type Department Care Team (Late st Contact Info) Description 06/11/2025 Treatment [facility] [place] [address] [place] [address] Felicita Flowers APRN-CNP [address] [place] [address] End stage renal disease; Dependence on renal dialysis Social History Tobacco Use Types Packs/Day Years Used Date Smoking Tobacco: Never Assessed Comments Unknown Sex and Gender Information Value Date Recorded Sex Assigned at Not on file Legal Sex Female 7:04 PM EDT Gender Identity Not on file Sexual Orientation Not on file documented as of this encounter Miscellaneous Notes * Dialysis Note - Felicita Flowers APRN-CNP - 06/11/2025 12:00 AM CDT Patient: Soo Alberts : 1950 Note Type: Dialysis Rounds-Comp Service Date: 06/11/2025 This patient was personally seen ehai-by-ovbo for a complete visit as part of routine monthly dialysis care for end stage renal disease. Attending Theoretical Physics Teacher: MANDA BROWER Dialysis Location: [facility] Schedule: Shift: 2 OVERVIEW COMMENTS: 05/28/25 MD: No new concerns or symptoms. Ongoing constipation and discomfort related to hernias - son got a call from [facility] yesterday to schedule with surgeon but missed call and he will call back to get consultation scheduled. She has electric scooter and can get around more now and has enjoyed this. 05/21/25 MD: No new dialysis concerns. Sometimes BP limits UF, but still reaching EDW much of the time. She is constipated, increasing hernia size and multiple in low abdomen that are likely exacerbating this and she is having pain associated with this and poor appetite, not using any narcotics. She would like referral to surgeon to consider fixing these and I will help arrange this. JUANITO SUBJECTIVE: KENNEL WORKER 06/11/25: Soo denies any shortness of breathe, chest pain or dizziness. PCAD exit site swabbed. Pt denies any fever/chills. She received cefazolin x 1 last week for same complaints. PCAD was swabbed but unfortunately, sample was lost during transportation as we have no lab results from last week. She is reaching edw. KENNEL WORKER 05/14/25: Feeling tired today. Tolerating HD, RN reports HD has been stable. Pt reported having a low BP yesterday but feeling well - asymptomatic. Reaching edw. KENNEL WORKER 04/09/25: Soo is feeling ok today, reports she is tolerating HD. Does report HOTN at her nursing facility, typically improves with drinking some water. Feels symptomatic only if SBP ?87. She does not want to consider midodrine again. KENNEL WORKER 02/26/25: Seen early on HD. No worsening SOB or any CP. Reports constipation has improved some. BPs 90s but asymptomatic thus far. No reported concerns with access. 02/17/25 PA: Complains of constipation. Last BM was Thur after using enema. Currently using Miralax and small yellow pill. Had small BM yesterday with Lactulose BID. Discussed increase fiber, limit oxycodone. HOME MEDICATIONS Medications reviewed. COMMENTS: She did not tolerate midodrine in past, a-fib and had side effects Current [facility] Medications acetaminophen 500 mg capsule Take 2 capsule by mouth three times a day. allopurinol 100 mg tablet Take 1 tablet by mouth three times a week as directed. amiodarone 200 mg tablet Take 1 tablet by mouth once a day. apixaban 2.5 mg tablet 1 tablet by mouth twice a day. [for AFIB] Atrac-Tain (with AHA) 10-4% cream to affected area twice a day. carboxymethylcellulose sodium 1% drops 2 drop into both eyes three times a day. [as needed for dry eyes] cephalexin 500 mg capsule Take 1 capsule by mouth every morning. cetirizine 5 mg tablet Take 1 tablet by mouth once a day. Cipro 500 mg tablet Take 1 tablet by mouth every evening. cyanocobalamin (vitamin B-12) 1,000 mcg capsule Take 1 capsule by mouth every morning. cyclobenzaprine 10 mg tablet Take 1 tablet by mouth three times a day as needed. doxycycline hyclate 100 mg tablet Take 1 tablet by mouth twice a day. [90 minutes before or after a meal] Eucerin Original lotion Apply to affected area twice a day as needed. ferrous sulfate 325 mg (65 mg iron) tablet Take 1 tablet by mouth once a day with meals. Miralax 17 gram/dose powder Take 17 gram dissolved in water once a day as directed. Nephro-Quincy 0.8 mg tablet Take 1 tablet by mouth every evening with meals. Nepro Carb Steady 0.08 gram-1.8 kcal/mL liquid as needed. [by pt request] nystatin 100,000 unit/gram ointment Apply to affected area twice a day as needed. omeprazole 20 mg capsule,delayed release(DR/EC) Take 1 capsule by mouth once a day. oxycodone 5 mg tablet Take 1 tablet by mouth every four hours as needed for pain. Senna-S 8.6-50 mg tablet Take 2 tablet by mouth twice a day as needed. Zofran 8 mg tablet Take 1 tablet by mouth every six hours as needed. [for nausea] Current [facility] Allergies Allergen: Reaction: Unknown Allergen: Reaction: Hives Severity: Moderate Allergen: ASPIRIN Reaction: Unknown Allergen: astemizole Reaction: Unknown Allergen: benzalkonium chloride Reaction: Unknown Allergen: brimonidine Reaction: Unknown Allergen: cinacalcet Reaction: Unknown Allergen: cranberry Reaction: Unknown Allergen: IODINATED CONTRAST MEDIA Reaction: Unknown Allergen: latex Reaction: Itching Allergen: Levaquin Reaction: Itching Allergen: LISINOPRIL Reaction: Unknown Allergen: methacholine Reaction: Unknown Allergen: MORPHINE Reaction: Unknown Allergen: Naprosyn Reaction: GI bleeding Allergen: oxycodone Reaction: Unknown Allergen: pentazocine Reaction: Unknown Allergen: Percodan Reaction: Nausea/Vomiting Allergen: propoxyphene Reaction: Unknown Allergen: quinidine Reaction: Skin Rash Allergen: succinylcholine Reaction: Unknown Allergen: Sulfa (Sulfonamide Antibiotics) Reaction: Skin Rash Allergen: Talwin Reaction: Nausea/Vomiting Allergen: Toradol Reaction: Nephrotoxicity Allergen: Vicodin Reaction: Flushing (Red Skin) DIALYSIS PRESCRIPTION Treatment Data Treatment Date: 06/11/2025 started at: 10:05 AM Dialysate / Machine Temp (prescribed): 37.0*C Dialysate / Machine Temp (actual): 37.0*C BFR (prescribed): 450 BFR (actual): 450 DFR (prescribed): Manual 800 DFR (actual): 500 Prescribed Time: 04:00 EDW (kg): 111.5 Dialyzer: 180NRe Optiflux Dialysate: 2.0 K, 2.5 Ca, 1.0 Mg, 100 Dextrose (G2251) Sodium: 138 Bicarb: 29 Pre Dialysis Vitals Pre BP Sit: 122/61 Pre Wt (kg): 113.9 EDW Deviation (kg): 2.4 Temp: 97.2*F Current Dialysis Vitals BP Sit: 111/56 AP/SPACE AND MISSILE OPERATIONS: 174/110 Pulse: 81 TREATMENT MEDICATIONS ORDERS DefenCath Catheter Lock Arterial 3 mL Arterial Red Port Every Treatment Post Dialysis 05/26/2025 - 05/22/2026 DefenCath Catheter Lock Venous 3 mL Venous Blue Port Every Treatment Post Dialysis 05/26/2025 - 05/22/2026 Heparin Sodium (Porcine) 1,000 Units/mL Systemic 4000 units IVP Every Treatment 03/17/2025 - 03/16/2026 Iron Sucrose (Venofer) 50 mg IVP 1X Week During Dialysis 05/12/2025 - 05/11/2026 BP AND FLUID ASSESSMENT EDW appropriate. COMMENTS: Monitor BP closely, hypotensive but minimal symptoms and doesn't tolerate midodrine Post BP Sit 141/74 - 06/09/2025 105/63 - 06/06/2025 116/61 - 06/04/2025 Post Wt (kg) 112.3 - 06/09/2025 111.0 - 06/06/2025 111.7 - 06/04/2025 EDW (kg) 111.5 - 06/09/2025 111.5 - 06/06/2025 111.5 - 06/04/2025 Deviation (kg) 0.8 - 06/09/2025 -0.5 - 06/06/2025 0.2 - 06/04/2025 ADEQUACY ASSESSMENT spKt/V (Daugirdas II) 1.67 (05/28/25) 1.84 (04/28/25) 1.80 (04/23/25) eKdrt/V 1.53 (05/28/25) 1.58 (04/23/25) 1.53 (03/28/25) % Urea Reduction 76 (05/28/25) 79 (04/28/25) 79 (04/23/25) BUN 55 (05/28/25) 53 (04/28/25) 39 (04/23/25) BUN Post Dialysis 13 (05/28/25) 11 (04/28/25) 8 (04/23/25) Creatinine 5.11 (05/28/25) 3.87 (04/23/25) 4.06 (03/26/25) Bicarbonate (CO2) 24 (05/28/25) 22 (04/23/25) 28 (03/26/25) Sodium 137 (05/28/25) 131 (04/23/25) 138 (03/26/25) Target met. Prescription compliance acceptable. Missed Treatments 0 - Last 30 days 0 - Last 60 days ACCESS ASSESSMENT Vascular access examined. COMMENTS: PCAD working well; no reported issues from staff. No access options elsewhere anymore unfortunately KENNEL WORKER 06/11/25: Exit site swabbed today and sent for culture. CVCatheter Tunneled Chest Active (In Use) - 01/14/2022 Placed - 01/14/2022 ANEMIA ASSESSMENT Hemoglobin 11.8 (05/28/25) 11.2 (05/23/25) 11.1 (04/23/25) Iron Saturation (TSat) 45 (05/28/25) 3 (04/23/25) 40 (03/26/25) Ferritin 1,365 (05/28/25) 1,090 (03/03/25) 1,410 (11/27/24) Iron 104 (05/28/25) 19 (04/23/25) 79 (03/26/25) TIBC 229 (05/28/25) 576 (04/23/25) 200 (03/26/25) MCV 111 (05/28/25) 108 (04/23/25) 105 (03/26/25) Platelets 173 (05/28/25) 199 (04/23/25) 121 (03/26/25) Anemia targets met. Hemoglobin at target. COMMENTS: Hold PARAM with Hgb ?11 BMM ASSESSMENT Calcium 9.4 05/28/25 9.9 04/23/25 10.2 03/26/25 Corrected Calcium 9.2 05/28/25 9.8 04/23/25 10.4 03/26/25 Phosphorus 5.5 05/28/25 3.0 05/02/25 2.5 04/23/25 Calcium Phosphorus Product 52 05/28/25 25 04/23/25 48 03/26/25 PTH 711 05/28/25 106 04/23/25 46 03/26/25 Vitamin D, 25-OH, Total 13.2 08/28/24 Magnesium 2.2 05/28/25 2.3 04/23/25 2.3 03/26/25 Alkaline Phosphatase 179 05/28/25 125 02/26/25 236 11/27/24 Aluminum 6 08/28/24 PTH elevated. Phosphorus controlled. Calcium controlled. Bone and mineral metabolism parameters reviewed. NUTRITION ASSESSMENT Albumin 4.2 05/28/25 4.1 04/23/25 3.8 03/26/25 Potassium 5.9 05/28/25 5.1 05/02/25 6.1 04/23/25 eNPCR 0.99 05/28/25 0.75 04/23/25 0.87 03/28/25 Albumin at goal. Potassium uncontrolled. Referred to pockets and pieces necktie operator for further counseling. TRANSPLANT STATUS COMMENT COMMENTS: Patient not a candidate for transplant PHYSICAL EXAM Exam performed. Vital Signs Reviewed. Lungs - Clear. CV - Blood pressure noted. CV - RRR. No edema. VISIT DIAGNOSES Z99.2 Dependence on renal dialysis N18.6 End stage renal disease ADDITIONAL LABS WBC 8.05 (05/28/25) 21.70 (04/23/25) 7.52 (03/26/25) Hepatitis B Surface Ab ?10 (08/28/24) Signed by: FELICITA FLOWERS APRN-CNP on 06/11/2025 at 11:42:26 AM Transcribed by: FELICITA FLOWERS APRN-CNP on 06/11/2025 at 11:42:26 AM documented in this encounter Plan of Treatment Not on file documented as of this encounter Visit Diagnoses Diagnosis End stage renal disease Dependence on renal dialysis documented in this encounter Care Teams Associate Store Manager Relationship Specialty Start Date End Date Samir Rascon MD PCP - General 07/08/19 documented as of this encounter
--- OUTSIDE RECORDS SUMMARY | 2025-07-14 15:54 | XMS_ITS | Clinical Summary ---
Author Organization [facility] Address [address] [place] [address] Care Team Providers Care Revenue Stamper Name Role Phone Samir Rascon MD Primary Care Provider Ronit courtney Allergies Active Allergy Reactions Criticality Noted Date Comments Acetaminophen Nausea 03/19/2014 Aspirin Vomiting 03/19/2014 Astemizole 06/15/2021 Other reaction(s): Flushing Benzalkonium [place] Nausea 06/15/2021 Brimonidine 06/15/2021 Other reaction(s): Nephritis Cinacalcet Hcl Dermatitis,Hives 02/16/2021 [place] Rash 06/15/2021 Cranberry Swelling, lips/tongue High 07/05/2017 Flu Vac Pl3113-52(36mo,Up)(Pf) Hives Medium 05/28/2021 Hexylnicotinate Nausea 06/15/2021 Hydrocodone-Acetaminophen Other High 01/22/2018 Other reaction(s): Flushing Pt became itchy around the mouth and then violently threw up after taking 1 [place] post surgery Ketorolac 03/08/2007 Other reaction(s): Renal [...] Bleeding GI bleeding Oxycodone Vomiting 03/07/2007 Oxycodone Gxf-Qxqngugha-Ohk Nausea 06/15/2021 Oxycodone-Aspirin Vomiting 01/11/2022 Pentazocine Nausea,Vomiting [...] on file Legal 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 Gender Identity Not on file Sexual Orientation [...] 09/29/2015, 09/18/2015 COVID-19 Vaccine (2023-2 5 season) 2025 Influenza Vaccine (#1) 2025 Pneumococcal 50+ Years Completed 8, 11/06/2017 Meningococcal B Vaccine Aged Out No l onger eligible based on patient's age to complete this topic Medical Devices Implanted Type Area Assistant Office Manager Device Identifier Shelf Expiration Date Model / Serial / Lot Cath Duraflow 24cm 15.5fr - [id number] Implanted:Qty: 1 on 01/14/2022 by Prosper King CNP at [facility] [employer] 03/22/2024 [id number] / / [id number] Cath Hemodialysis Schn Xl 20cm - [id number] Implanted:Qty: 1 on 01/13/2022 by Domo Mckeon MD at [facility] Temp Dialysis Catheters [employer] 02/26/2026 [id number] / / [id number] Insurance BCBS [place]UE MEDICARE PART A & B Advance Directives For more information, please contact: [phone] * Full Code (Latest Code Status on File) Date Activated Date Inactivated Comments 01/13/2022 1:52 PM 01/15/2022 3:03 AM Question Answer Comments How was code status determined? Previous [facility]umen [facility] Care Teams Revenue Stamper Relationship Specialty Start Date End Date Samir Rascon MD PCP - General 01/04/22
--- OUTSIDE RECORDS SUMMARY | 2025-07-14 15:54 | XMS_ITS | Encounter Summary ---
Author Organization [facility] Address [address] [facility] [address] [place] [address] Care Team Providers Care Senior Business Architect Name Role Phone Samir Rascon MD Primary Care Provider Unavail le Encounter Details Date Type Department Care Team (Late st Contact Info) Description 07/09/2025 Orders Only [facility] [place] [address] [facility] [address] [place] [address] Wesley Herrera MD [address] [place] [address] Social History Tobacco Use Types [...] Date/Time Associated Diagnosis Comments HEMATOLOGY Routine 07/09/2025 documented in this encounter Results * (ABNORMAL) HEMATOLOGY (07/09/2025) Hemoglobin 9.9(L) 12.0 - 16.0 g/dL [facility] Hemoglobin x 3 29.7(L) 36.0 - 48.0 % [facility] 07/09/2025 07/10/2025 2:5 2 AM CDT Narrative [facility] - 07/10/2025 Unless otherwise specified, test(s) performed at: [facility], [address] [place] [address], [place] [address] RESEARCH AND DEVELOPMENT DIRECTOR: Dwayne Musa M.D., Ph.D For any questions, please call customer service at FREQUENCY:OTHER Resulting Agency Comment Specimen source: Blood us Wesley Herrera MD LAB BLOOD ORDERABLES Final Re sult [facility] See order comments or contact performing lab Unknown, [place] documented in this encounter Visit Diagnoses Not on filedocumented in this encounter Care Teams Senior Business Architect Relationship Specialty Start Date End Date Samir Rascon MD PCP - General 07/08/19 documented as of this encounter
--- OUTSIDE RECORDS SUMMARY | 2025-07-14 15:54 | XMS_ITS | Encounter Summary ---
Author Organization [facility] Address [address] [facility] [address] [place] [address] Care Team Providers Care Aadc Plans Staff Officer Name Role Phone Samir Rascon MD Primary Care Provider Unavail le Encounter Details Date Type Department Care Team (Late st Contact Info) Description 07/02/2025 Orders Only [facility] [place] [address] [facility] [address] [place] [address] Wesley Herrera MD [address] [place] [address] Social History Tobacco Use Types [...] Priority Date/Time Associated Diagnosis Comments HEMATOLOGY Routine 07/02/2025 documented in this encounter Results * (ABNORMAL) HEMATOLOGY (07/02/2025) Hemoglobin 11.1(L) 12.0 - 16.0 g/dL [facility] Hemoglobin x 3 33.3(L) 36.0 - 48.0 % [facility] 07/02/2025 07/03/2025 2:3 1 AM CDT Narrative [facility] - 07/03/2025 Unless otherwise specified, test(s) performed at: [facility], [address] [place] [address], [place] [address] [address]: Dwayne Musa M.D., Ph.D For any questions, please call customer service at FREQUENCY:OTHER Resulting Agency Comment Specimen source: Blood us Wesley Herrera MD LAB BLOOD ORDERABLES Final Re sult [facility] See order comments or contact performing lab Unknown, [place] documented in this encounter Visit Diagnoses Not on filedocumented in this encounter Care Teams Aadc Plans Staff Officer Relationship Specialty Start Date End Date Samir Rascon MD PCP - General 07/08/19 documented as of this encounter
--- OUTSIDE RECORDS SUMMARY | 2025-07-14 15:54 | XMS_ITS | Encounter Summary ---
Author Organization [facility] Address [address] [place] [address] Care Team Providers Care Char House Supervisor Name Role Phone Samir Rascon MD Primary Care Provider Unavail le Encounter Details Date Type Department Care Team (Late st Contact Info) Description 06/18/2025 Orders Only [facility] [place] [address] [facility] [address] [place] [address] Wesley Herrera MD [address] [place] [address] Social History Tobacco Use Types [...] Priority Date/Time Associated Diagnosis Comments HEMATOLOGY Routine 06/18/2025 documented in this encounter Results * (ABNORMAL) HEMATOLOGY (06/18/2025) Hemoglobin 11.7(L) 12.0 - 16.0 g/dL [facility] Hemoglobin x 3 35.1(L) 36.0 - 48.0 % [facility] 06/18/2025 06/19/2025 4:3 2 AM CDT Narrative [facility] - 06/19/2025 Unless otherwise specified, test(s) performed at: [facility], [address] [place] [address], [place] [address] INSTITUTIONAL ASSET MANAGER: Dwayne Musa M.D., Ph.D For any questions, please call customer service at FREQUENCY:OTHER Resulting Agency Comment Specimen source: Blood us Wesley Herrera MD LAB BLOOD ORDERABLES Final Re sult [facility] See order comments or contact performing lab Unknown, [place] documented in this encounter Visit Diagnoses Not on filedocumented in this encounter Care Teams Char House Supervisor Relationship Specialty Start Date End Date Samir Rascon MD PCP - General 07/08/19 documented as of this encounter
--- OUTSIDE RECORDS SUMMARY | 2025-07-14 15:54 | XMS_ITS | Encounter Summary ---
Author Organization [facility] Address [address] [facility] [place] [address] Care Team Providers Care Tobacco Sieve Operator Name Role Phone Samir Rascon MD Primary Care Provider Unavailab le Encounter Details Date Type Department Care Team (Late st Contact Info) Description 06/11/2025 Orders Only [facility] [place] [address] [facility] [address] [place] [address] Wesley Herrera MD [address] [place] [address] Social History Tobacco Use Types [...] Procedure Name Priority Date/Time Associated Diagnosis Comments CULTURE,CATHETER EXIT SITE Routine 06/11/2025 HEMATOLOGY Routine 06/11/2025 documented in this encounter Results * Culture, Catheter Exit Site (06/11/2025) Gram [...] 1.0 S Culture, Catheter Exit Site Complete [facility] 06/11/2025 06/13/2025 6:3 4 AM CDT Narrative [facility] - 06/15/2025 Unless otherwise specified, test(s) performed at: [facility], [address] [place] [address], [place] [address] HOSPITALITY COORDINATOR: Dwayne Musa M.D., Ph.D For any questions, please call customer service at FREQUENCY:OTHER Resulting Agency Comment Specimen source: Catheter Exit Site/CVCATHETER EXIT Wesley Herrera MD LAB MICROBIOLOGY - GENERAL OR DERABLES Final Result [facility] See order comments or contact performing lab Unknown, [place] * (ABNORMAL) HEMATOLOGY (06/11/2025) Hemoglobin 11.6(L) 12.0 - 16.0 g/dL [facility] Hemoglobin x 3 34.8(L) 36.0 - 48.0 % [facility] 06/11/2025 06/13/2025 6:2 1 AM CDT Narrative [facility] - 06/13/2025 Unless otherwise specified, test(s) performed at: [facility], [address] [place] [address], [place] [address] HOSPITALITY COORDINATOR: Dwayne Musa M.D., Ph.D For any questions, please call customer service at FREQUENCY:OTHER Resulting Agency Comment Specimen source: Blood us Wesley Herrera MD LAB BLOOD ORDERABLES Final Re sult [facility] See order comments or contact performing lab Unknown, [place] documented in this encounter Visit Diagnoses Not on filedocumented in this encounter Care Teams Tobacco Sieve Operator Relationship Specialty Start Date End Date Samir Rascon MD PCP - General 07/08/19 documented as of this encounter
--- OUTSIDE RECORDS SUMMARY | 2025-07-14 15:54 | XMS_ITS | Clinical Summary ---
Author Organization [facility] Address [address] [place] [address] Care Team Providers Care Wash Barrel Leader Name Role Phone Elsewhere, Pcp Primary Care Provider Unavailabl e Source Comments Patient records contain information from all sites at [facility]. For routine questions regarding patient records, call [phone] during business hours, M-F 8:00 AM - 5:00 PM Central Time. Record requests for emergency care only can be directed to [phone] at any time.[facility] Allergies Active Allergy Reactions Criticality Noted Date Comments Aspirin Other (see comments) 12/05/2024 Per SNF Astemizole Rash 06/15/2021 Other reaction(s): Flushing Benzalkonium [place] Nausea And Vomiting,Nausea Only 06/15/2021 Brimonidine Acute Interstitial Nephritis,Other (see comments) High 06/15/2021 Other reaction(s): Nephritis Cinacalcet Hives only, no other systemic symptoms,Hives (Reselect Reaction) 02/16/2021 [place] Rash 06/15/2021 Cranberry Angioedema,Edema (Reselect Reaction),Edema, suggestive of allergic reaction, i.e., lip, tongue, or throat swelling,Rash High 08/13/2010 Propoxyphene N-Acetaminophen GI intolerance 07/25/2024 Flu Vac [id number](36mo,Up)(Pf) Hives (Reselect Reaction) Medium 07/25/2024 Hexylnicotinate Nausea And Vomiting,Nausea Only 06/15/2021 Hydrocodone-Acetaminoph en Rash High 01/22/2018 Pt became itchy around the mouth and then violently threw up after taking 1 [place] post surgery Other reaction(s): Flushing Pt became itchy around the mouth and then violently threw up after taking 1 [place] post surgery Iodinated Contrast Media Hives with [...] Talwin Compound Other (see comments) 12/05/2024 Per [facility] Medications acetaminophen (TylenoL) 500 mg tablet Take [...] Team Description 04/18/2025 Orders Only Division of parent trainer in [place], [place] [address] [place] [address] Sebastien Bo M.D., D.D.S. 04/17/2025 Orders Only Division of parent trainer in [place], [place] [address] [place] [address] Melonie Clayton M.D., D.M.D. [facility] (Primary Dx) 04/17/2025 Orders Only Division of parent trainer in [place], [place] [address] [place] [address] Bijal Ponce L.D.A. from Last 3 Months Immunizations Immunization Administration [...] drink = 0.6 oz pur e alcohol) [facility] [employer] Answer Date Recorded In the past 12 months has e [employer], gas, oil, or water [employer] threatened to shut off services in your [...] your living situation today? I have a [facility] place to live 08/24/2024 Comments No Sex and Gender Information Value Date Recorded Sex Assigned at Female 08/24/2024 1:36 PM CDT Legal Sex Female 11:47 AM ELECTRICAL & INSTRUMENTATION SUPERVISOR Gender Identity Female 08/24/2024 1:36 PM CDT Sexual Orientation Straight 08/24/2024 1: 36 PM CDT Last Filed Vital Signs Vital Sign Reading Time Taken Comments Blood Pressure 115/80 04/10/2025 2:43 PM CDT Pulse 93 04/10/2025 3:03 PM CDT Temperature 36.1 C (96.9 F) 12/06/2024 7:40 AM ELECTRICAL & INSTRUMENTATION SUPERVISOR Respiratory Rate 16 12/06/2024 7:40 AM ELECTRICAL & INSTRUMENTATION SUPERVISOR Oxygen Saturation 99% 04/10/2025 3:03 PM CDT Inhaled Oxygen Concentration - - Weight 111 kg (245 lb) 12/06/2024 7:40 AM ELECTRICAL & INSTRUMENTATION SUPERVISOR Height 157.5 cm (5' 2) 07/25/2024 2:09 PM CDT Body Mass Index 44.81 07/25/2024 2:09 PM CDT Plan of Treatment Upcoming Encounters Date Type Department Care Team (Late st Contact Info) Description 07/15/2025 3:40 PM CDT Appointment Division of parent trainer in [place], [place] [address] [place] [address] Ori Murray M.D., D.M.D. [address] [place] [address] Health Maintenance Due Date Last Done Comments Bone Density Scan (Osteoporosis Screen) 1950 CT Colonography 1950 Cologuard 1950 Colonoscopy 1950 Colorectal Cancer Screening 1950 Diabetic Eye Exam 1950 Diabetic Office Visit with Foot Exam 1950 FIT 1950 Hepatitis C Screening 1950 Mammogram 1950 Urine Albumin 1950 Zoster Vaccines (1 of 2) 2001 RSV vaccine - (32-36 weeks) or 60+ years (1 - Risk 60-74 years 1-dose series) 2011 Lipid (Cholesterol) Screening 03/12/2020 03/12/2019 Depression Screening (Annual PHQ-2) 10/23/2024 Fall Risk Screen (Annual) 10/23/2024 COVID-19 Vaccine ( season) 2025 Influenza Vaccine (#1) 2025 10/13/2006, 2002 Office Visit for Blood Pressure Check / Re-check 12/06/2025 12/06/2024 Hemoglobin A1C 01/06/2026 07/09/2025, 01/2023, 03/16/2022, Additional history exists Creatinine Level (Kidney Function Test) 07/09/2026 07/09/2025, 01/05/2025, 01/04/2025, Additional history exists DTaP,Tdap,and Td Vaccines (3 [...] Recently Relevant to Health Maintenance Insurance MEDICARE [facility] [place] [address] Advance Directives For more information, please contact: [phone] Documents on File Type Date Recorded Patient Torpedo Specialist Expl anation Advance Directives 07/22/2024 10:26 AM Advance Directives 07/18/2024 3:52 PM Clay Galeano HCPOA/ADVOCATE/AGENT/ TUGBOAT MATE/SURROG ATE Healthcare Agents on File Name Relationship Healthcare Agent Relationship Communication Clay Alberts Spouse Health Care Agent Jonathon Alberts Son First Alternat e Health Care Agent Fanny Galeano Unknown Second Alte rnate Health Care Agent Care Teams Wash Barrel Leader Relationship Specialty Start Date End Date Elsewhere, Pcp PCP - General Internal Medicine 12/06/24
--- OUTSIDE RECORDS SUMMARY | 2025-07-14 15:54 | XMS_ITS | Encounter Summary ---
Author Organization [facility] Address [address] [place] [address] Care Team Providers Care Collections Attorney Name Role Phone Samir Rascon MD Primary Care Provider Unavail le Encounter Details Date Type Department Care Team (Late st Contact Info) Description 05/28/2025 Orders Only [facility] [place] [address] [place] [address] Wesley Herrera MD [address] [place] [address] Social History Tobacco Use Types [...] Date/Time Associated Diagnosis Comments HD KINETICS Routine 05/28/2025 POST CHEMISTRY Routine 05/28/2025 HEMATOLOGY Routine 05/28/2025 CHEMISTRY Routine 05/28/2025 CHEMISTRY Routine 05/28/2025 [facility] RES[facility] Routine 05/28/2025 documented in this encounter Results * [facility] Results (05/28/2025) PCR 58.27 [facility] eKt/V (Tattersall) 1.46 [facility] nPCR_HD 1.05 [facility] eNPCR 0.99 [facility] spKt/V (Daugirdas II) 1.67 [facility] eKt/V [facility]ch [facility] e[facility]/V 1.53 [facility] spKt/V Gotch 1.76 [facility] Center WSTDKT/V 2.5 [facility] 05/28/2025 05/28/2025 [facility] [place] Provider LAB BLOOD ORDERABLES Final Result [facility] Center Contact Performing lab Unknown, [place] * HD KINETICS (05/28/2025) Pathologist [facility] % Urea Reduction 76 65 - 80 % [facility] 05/28/2025 05/30/2025 7:2 2 AM CDT Narrative Resulting Agency Comment Specimen source: Plasma Wesley Herrera MD LAB BLOOD ORDERABLES Final Re sult [facility] See order comments or contact performing lab Unknown, [place] * POST CHEMISTRY (05/28/2025) BUN Post Dialysis 13 6 - 19 mg/dL [facility] 05/28/2025 05/30/2025 7:2 2 AM CDT Narrative [facility] - 05/30/2025 Unless otherwise specified, test(s) performed at: [facility], [address] [place] [address], [place] [address] DAM ATTENDANT: Dwayne Musa M.D., Ph.D For any questions, please call customer service at FREQUENCY:MONTHLY Resulting Agency Comment Specimen source: Plasma Wesley Herrera MD LAB BLOOD ORDERABLES Final Re sult [facility] See order comments or contact performing lab Unknown, [place] * (ABNORMAL) [facility] (05/28/2025) BUN 55(H) 6 - 19 mg/dL [facility] Creatinine 5.11(H) 0.60 - 1.30 mg/dL [facility] BUN/Creatinine Ratio 10.8 10.0 - 20.0 [facility] Sodium 137 136 - 145 mEq/L [facility] Potassium 5.9(H) 3.5 - 5.1 mEq/L [facility] Chloride 99 96 - 108 mEq/L [facility] Bicarbonate (CO2) 24 20 - 31 mEq/L [facility] Calcium 9.4 8.7 - 10.4 mg/dL [facility] Comment: Please note change in reference range. Corrected Calcium 9.2 8.7 - 10.4 mg/dL [facility] Comment: Corrected Calcium is not equivalent to measured Ionized Calcium. Phosphorus 5.5(H) 2.6 - 4.5 mg/dL [facility] Calcium Phosphorus Product 52 0 - 54 [facility] Calcium Phosporus Product, Cor 51 0 - 54 [facility] Alkaline Phosphatase 179(H) 35 - 104 U/L [facility] Total Protein 6.3 6.0 - 8.5 g/dL [facility] Albumin 4.2 3.5 - 5.2 g/dL [facility] Globulin, Total 2.1 2.0 - 4.0 g/dL [facility] A/G Ratio 2.0 1.0 - 2.0 [facility] Magnesium 2.2 1.6 - 2.6 mg/dL [facility] Ferritin 1,365(H) 10 - 291 ng/mL [facility] Comment: Verified by repeat analysis. Iron 104 30 - 160 mcg/dL [facility] UIBC 125(L) 155 - 355 mcg/dL [facility] TIBC 229 185 - 515 mcg/dL [facility] Iron Saturation (TSat) 45 20 - 55 % [facility] 05/28/2025 05/30/2025 1:5 4 AM CDT Narrative [facility] - 05/30/2025 Unless otherwise specified, test(s) performed at: [facility], [address] [place] [address], [place] [address] DAM ATTENDANT: Dwayne Musa M.D., Ph.D For any questions, please call customer service at FREQUENCY:MONTHLY Resulting Agency Comment Specimen source: Serum us Wesley Herrera MD LAB BLOOD ORDERABLES Final Re sult Performing Organization Address [facility]/ZIP Co de Phone Number [facility] See order comments or contact performing lab Unknown, [place] * (ABNORMAL) [facility] (05/28/2025) Pathologist [facility] PTH 711(H) 16 - 80 pg/mL [facility] 05/28/2025 05/30/2025 4:4 1 AM CDT Narrative [facility] - 05/30/2025 Unless otherwise specified, test(s) performed at: [facility], [address] [place] [address], [place] [address] DAM ATTENDANT: Dwayne Musa M.D., Ph.D For any questions, please call customer service at FREQUENCY:MONTHLY Resulting Agency Comment Specimen source: Plasma us Wesley Herrera MD LAB BLOOD ORDERABLES Final [facility] Performing Organization Address [facility] de Phone Number [facility] See order comments or contact performing lab Unknown, [place] * (ABNORMAL) HEMATOLOGY (05/28/2025) Pathologist [facility] Neutrophils 80.0(H) 40.0 - 75.0 % [facility] Lymphocytes Relative 12.5(L) 19.0 - 48.0 % [facility] Monocytes 3.9 3.0 - 10.0 % [facility] Eosinophils Relative 2.0 0.0 - 7.0 % [facility] Basophils Relative 0.6 0.0 - 1.5 % [facility] CHARMAINE 1.0 0.0 - 4.0 % [facility] WBC 8.05 4.80 - 10.80 1000/mcL [facility] RBC 3.61(L) 4.20 - 5.40 mill/mcL [facility] Hematocrit 40.2 37.0 - 47.0 % [facility] MCV 111(H) 80 - 100 fl [facility] MCH 32.6(H) 27.0 - 31.0 pg [facility] MCHC 29.3(L) 30.0 - 36.0 g/dL [facility] RDW 16.1(H) 11.5 - 14.5 % [facility] Hemoglobin 11.8(L) 12.0 - 16.0 g/dL [facility] Hemoglobin x 3 35.4(L) 36.0 - 48.0 % [facility] Platelets 173 130 - 400 1000/mcL [facility] 05/28/2025 05/29/2025 5:2 5 PM CDT Narrative [facility] - 05/29/2025 Unless otherwise specified, test(s) performed at: [facility], [address] [place] [address], [place] [address] DAM ATTENDANT: Dwayne Musa M.D., Ph.D For any questions, please call customer service at FREQUENCY:MONTHLY Resulting Agency Comment Specimen source: Blood us Wesley Herrera MD LAB BLOOD ORDERABLES Final Re sult [facility] See order comments or contact performing lab Unknown, [place] documented in this encounter Visit Diagnoses Not on filedocumented in this encounter Care Teams Collections Attorney Relationship Specialty Start Date End Date Samir Rascon MD PCP - General 07/08/19 documented as of this encounter
--- OUTSIDE RECORDS SUMMARY | 2025-07-14 15:54 | XMS_ITS | Encounter Summary ---
Author Organization [facility] Address [address] [place] [address] Care Team Providers Care Vault Maker Name Role Phone Samir Rascon MD Primary Care Provider Des crooks Encounter Details Date Type Department Care Team (Late st Contact Info) Description 06/27/2025 Treatment [facility] [address] [place] [address] Felicita Flowers APRN-CNP [address] [place] [address] End stage renal disease; Dependence [...] Dialysis Note - Felicita Flowers APRN-CNP - 06/27/2025 12:00 AM CDT Patient: Soo Alberts : 1950 Note Type: Dialysis Rounds-Comp Service Date: 06/27/2025 This patient was personally seen [id number] for a complete visit as part of routine monthly dialysis care for end stage renal disease. Attending Gum Rolling Machine Tender: MANDA BROWER Dialysis Location: [facility] Schedule: Shift: 2 OVERVIEW COMMENTS: 05/28/25 [...] I will help arrange this. JUANITO SUBJECTIVE: COUNCILLOR ABORIGINAL LAND COUNCIL 06/27/25: Soo is tired today but overall feeling ok. No shortness of breathe, no dizziness or cramping today. RN reports no more concerns with drainage at PCAD exit site. Soo denies any fever/chills. Gets near edw. COUNCILLOR ABORIGINAL LAND COUNCIL 06/11/25: Soo denies any shortness of breathe, chest pain or dizziness. PCAD exit site swabbed. Pt denies any fever/chills. She received cefazolin x 1 last week for same complaints. PCAD was swabbed but unfortunately, sample was lost during transportation as we have no lab results from last week. She is reaching edw. HOME MEDICATIONS Medications reviewed. COMMENTS: She did not tolerate midodrine in past, a-fib and had side effects Current [facility] Outpatient Medications acetaminophen 500 mg capsule Take [...] Skin) DIALYSIS PRESCRIPTION Treatment Data Treatment Date: 06/27/2025 started at: 10:05 AM Dialysate / Machine Temp (prescribed): 37.0*C Dialysate / Machine Temp (actual): 37.0*C BFR (prescribed): 450 BFR (actual): 450 DFR (prescribed): Manual 800 DFR (actual): 400 Prescribed Time: 04:00 EDW (kg): 111.0 Dialyzer: 180NRe Optiflux Dialysate: 2.0 K, 2.5 Ca, 1.0 Mg, 100 Dextrose (G2251) Sodium: 138 Bicarb: 31 Pre Dialysis Vitals Pre BP Sit: 98/62 Pre Wt (kg): 113.5 EDW Deviation (kg): 2.5 Temp: 97.3*F Current Dialysis Vitals BP Sit: 105/55 AP/HAND SPRING REPAIRER: 172/107 Pulse: 87 TREATMENT MEDICATIONS ORDERS DefenCath Catheter Lock Arterial [...] and doesn't tolerate midodrine Post BP Sit 92/50 - 06/25/2025 133/65 - 06/23/2025 111/60 - 06/20/2025 Post Wt (kg) 112.7 - 06/25/2025 111.8 - 06/23/2025 111.1 - 06/20/2025 EDW (kg) 111.0 - 06/25/2025 111.0 - 06/23/2025 111.0 - 06/20/2025 Deviation (kg) 1.7 - 06/25/2025 0.8 - 06/23/2025 0.1 - 06/20/2025 [facility]Y ASSESSMENT spKt/V (Daugirdas II) 1.67 (05/28/25) 1.84 (04/28/25) 1.80 (04/23/25) eKdrt/V 1.53 (05/28/25) 1.58 (04/23/25) 1.53 (03/28/25) % Urea Reduction 79 (06/25/25) 76 (05/28/25) 79 (04/28/25) BUN 72 (06/25/25) 55 (05/28/25) 53 (04/28/25) BUN Post Dialysis 15 (06/25/25) 13 (05/28/25) 11 (04/28/25) Creatinine 5.12 (06/25/25) 5.11 (05/28/25) 3.87 (04/23/25) Bicarbonate (CO2) 20 (06/25/25) 24 (05/28/25) 22 (04/23/25) Sodium 136 (06/25/25) 137 (05/28/25) 131 (04/23/25) Target met. Prescription compliance acceptable. Missed Treatments 0 - Last 30 days 0 - Last 60 days ACCESS ASSESSMENT Vascular access examined. COMMENTS: PCAD working well; no reported issues from staff. No access options elsewhere anymore unfortunately COUNCILLOR ABORIGINAL LAND COUNCIL 06/11/25: Exit site swabbed today and sent for culture. CVCatheter Tunneled Chest Active (In Use) - 01/14/2022 Placed - 01/14/2022 ANEMIA ASSESSMENT Hemoglobin 11.2 (06/25/25) 11.7 (06/18/25) 11.6 (06/11/25) Iron Saturation (TSat) 86 (06/25/25) 45 (05/28/25) 3 (04/23/25) Ferritin 1,365 (05/28/25) 1,090 (03/03/25) 1,410 (11/27/24) Iron 195 (06/25/25) 104 (05/28/25) 19 (04/23/25) TIBC 228 (06/25/25) 229 (05/28/25) 576 (04/23/25) MCV 106 (06/25/25) 111 (05/28/25) 108 (04/23/25) Platelets 165 (06/25/25) 173 (05/28/25) 199 (04/23/25) Anemia targets met. Hemoglobin at target. COMMENTS: Hold PARAM with Hgb ?11 BMM ASSESSMENT Calcium 8.8 06/25/25 9.4 05/28/25 9.9 04/23/25 Corrected Calcium 8.8 06/25/25 9.2 05/28/25 9.8 04/23/25 Phosphorus 5.5 06/25/25 5.5 05/28/25 3.0 05/02/25 Calcium Phosphorus Product 48 06/25/25 52 05/28/25 25 04/23/25 PTH 711 05/28/25 106 04/23/25 46 03/26/25 Vitamin D, 25-OH, Total 13.2 08/28/24 Magnesium 2.1 06/25/25 2.2 05/28/25 2.3 04/23/25 Alkaline Phosphatase 179 05/28/25 125 02/26/25 236 11/27/24 Aluminum 6 08/28/24 PTH elevated. Phosphorus controlled. Calcium controlled. Bone and mineral metabolism parameters reviewed. NUTRITION ASSESSMENT Albumin 4.0 06/25/25 4.2 05/28/25 4.1 04/23/25 Potassium 4.9 06/25/25 5.9 05/28/25 5.1 05/02/25 eNPCR 0.99 05/28/25 0.75 04/23/25 0.87 03/28/25 Albumin at goal. Potassium controlled. TRANSPLANT STATUS COMMENT COMMENTS: Patient not a candidate for transplant PHYSICAL EXAM Exam performed. Vital Signs Reviewed. Lungs - Clear. CV - Blood pressure noted. CV - RRR. No edema. VISIT DIAGNOSES N18.6 End stage renal disease Z99.2 Dependence on renal dialysis ADDITIONAL LABS WBC 8.67 (06/25/25) 8.05 (05/28/25) 21.70 (04/23/25) Hepatitis B Surface Ab ?10 (08/28/24) Signed by: FELICITA FLOWERS APRN-CNP on 06/27/2025 at 11:05:00 AM Transcribed by: FELICITA FLOWERS APRN-CNP on 06/27/2025 at 11:05:00 AM documented in this encounter Plan of Treatment Not on file documented as of this encounter Visit Diagnoses Diagnosis End stage renal disease Dependence on renal dialysis documented in this encounter Care Teams Vault Maker Relationship Specialty Start Date End Date Samir Rascon MD PCP - General 07/08/19 documented as of this encounter
[2025-07-14 16:03] VITALS: BP 110/62; PULSE 65; RESP 22; TEMP 36.8; O2SAT 95; BMI 45.0
--- NOTE | 2025-07-14 16:19 | ED.GENADULT ---
HPI - General Adult General Chief complaint: Nausea/Vomiting Stated complaint: hypotension Time Seen by Provider: 07/14/25 15:57 History of Present Illness HPI narrative: This 74-year-old female is in renal failure and goes to dialysis. Today she almost completed her dialysis run. It was stopped about 20 minutes short of the normal duration because she grew lightheaded and hypotensive. She reports a systolic blood pressure at that time around 70. She states that she feels much better now. Her blood pressure on arrival here is 110 for systolic value. Prior to this she states that she was feeling normal for herself. She does have 3 abdominal hernias that are causing complications of constipation according to her. She does not report any fevers and otherwise states that her health has been stable. Related Data Home Medications ?Medication ?Instructions ?Recorded ?Confirmed acetaminophen .Route 11/08/24 allopurinol 100 mg tablet mg 11/08/24 amiodarone 200 mg tablet mg DAILY 11/08/24 apixaban 2.5 mg tablet (Eliquis) mg 11/08/24 cyclobenzaprine 10 mg tablet mg 3XD 11/08/24 doxycycline hyclate 100 mg tablet mg 11/08/24 ferrous fumarate 325 mg (106 mg 325 mg PO DAILY 11/08/24 11/08/24 iron) tablet (Ferretts) nystatin 100,000 unit/gram topical topical 11/08/24 ointment omeprazole 20 mg capsule,delayed 20 mg PO DAILY 11/08/24 11/08/24 release oxycodone 5 mg tablet mg 11/08/24 sucroferric oxyhydroxide 500 mg 500 mg PO TID 11/08/24 11/08/24 chewable tablet (Velphoro) Allergies Allergy/AdvReac Type Severity Reaction Status Date / Time aspirin Allergy Unknown Verified 07/14/25 16:12 astemizole Allergy Unknown Verified 07/14/25 16:12 benzalkonium Allergy Unknown Verified 07/14/25 16:12 brimonidine Allergy Unknown Verified 07/14/25 16:12 cinacalcet Allergy Unknown Verified 07/14/25 16:12 cobalt Allergy Unknown Verified 07/14/25 16:12 cranberry Allergy Unknown Verified 07/14/25 16:12 influenza virus vaccine ts Allergy Unknown Verified 07/14/25 16:12 [id number] (36 mos,up) (From Fluarix) Iodinated Contrast Media Allergy Unknown Verified 07/14/25 16:12 ketorolac (From Toradol) Allergy Unknown Verified 07/14/25 16:12 latex Allergy Unknown Verified 07/14/25 16:12 levofloxacin (From Levaquin) Allergy Unknown Verified 07/14/25 16:12 lisinopril Allergy Unknown Verified 07/14/25 16:12 methacholine Allergy Unknown Verified 07/14/25 16:12 morphine Allergy Unknown Verified 07/14/25 16:12 naproxen (From Naprosyn) Allergy Unknown Verified 07/14/25 16:12 oxycodone Allergy Unknown Verified 07/14/25 16:12 pentazocine Allergy Unknown Verified 07/14/25 16:12 propoxyphene Allergy Unknown Verified 07/14/25 16:12 quinidine Allergy Unknown Verified 07/14/25 16:12 succinylcholine Allergy Unknown Verified 07/14/25 16:12 Sulfa (Sulfonamide AdvReac Unknown Verified 07/14/25 16:12 Antibiotics) hydrocodone (From Vicodin) AdvReac Verified 07/14/25 16:12 Review of Systems Status of ROS: Reports: 10 or more systems reviewed and unremarkable except as noted in History and below Narrative: Constitutional: No fevers, no weight gain or loss. Eyes: No discharge. No vision changes. HENT: No congestion, no sore throat, no ear pain. Cardiovascular: No chest pain, no palpitations. Respiratory: No shortness of breath, no wheezes, no cough. Gastrointestinal: No abdominal pain, no vomiting, no diarrhea. Genitourinary: Renal failure on dialysis. Musculoskeletal: Normal range of motion. Skin: No rashes, no pruritis. Neurological: No weakness, sensory change, speech change. Lightheadedness toward the end of dialysis prior to arrival. Endo/Heme/Allergies: No bruising or bleeding. No polydipsia. Pysch: no suicidality, no anxiety, no insomnia. All other systems reviewed and are negative. Exam Narrative: Exam Narrative: Constitutional: Well-developed, well-nourished, no acute distress. HEENT: Normocephalic, atraumatic. Neck: Normal range of motion. Nontender. Supple. Heart: Regular. No murmurs. Normal rate. Intact distal pulses. Lungs: Clear to auscultation. No chest discomfort. No wheezes, rhonchi, or rales. Abdomen: Normal bowel sounds. Nontender. No rebound tenderness. Abdominal hernias. Genitalia: Deferred. Back: No midline tenderness. Normal range of motion. Extremities: Normal range of motion. No injury. Skin: Intact. No rash. Warm. No erythema or pallor. Neurologic: No altered sensation. No weakness. Alert and oriented. Psychiatric: No suicidality. No anxiety or depression. No insomnia. Nursing notes and vitals signs are reviewed. Const: Vital Signs, click to edit/add: Vital Signs - 24 hr 07/14/25 16:03 07/14/25 16:53 07/14/25 16:54 Temperature 98.2 F Pulse Rate 96 Pulse Rate [Pulse Oximeter] 65 Respiratory Rate 22 16 Blood Pressure 100/61 100/61 Blood Pressure [Ri ght Upper Arm] 110/62 Pulse Oximetry 95 97 Oxygen Delivery Me thod Room Air Nasal Cannula Oxygen Flow Rate 2 07/14/25 17:22 Temperature Pulse Rate 94 Pulse Rate [Pulse Oximeter] Respiratory Rate 16 Blood Pressure 98/65 Blood Pressure [Ri ght Upper Arm] Pulse Oximetry 97 Oxygen Delivery Me thod Nasal Cannula Oxygen Flow Rate 2 Course Vital Signs Vital signs: Initial Vital Signs Temperature 98.2 F 07/14/25 16:03 Temperature Source Temporal Artery Scan 07/14/25 16:03 Pulse Rate 65 07/14/25 16:03 Respiratory Rate 22 07/14/25 16:03 Blood Pressure 110/62 07/14/25 16:03 Blood Pressure Mean 78 07/14/25 16:03 Pulse Oximetry 95 07/14/25 16:03 Oxygen Delivery Method Room Air 07/14/25 16:03 Vital Signs Temperature 98.2 F 07/14/25 16:03 Pulse Rate 65 07/14/25 16:03 Respiratory Rate 22 07/14/25 16:03 Blood Pressure 110/62 07/14/25 16:03 Pulse Oximetry 95 07/14/25 16:03 Oxygen Delivery Method Room Air 07/14/25 16:03 Temperature 98.2 F 07/14/25 16:03 Pulse Rate 94 07/14/25 17:22 Respiratory Rate 16 07/14/25 17:22 Blood Pressure 98/65 07/14/25 17:22 Pulse Oximetry 97 07/14/25 17:22 Oxygen Delivery Method Nasal Cannula 07/14/25 17:22 Oxygen Flow Rate 2 07/14/25 17:22 Medical Decision Making MDM Narrative Medical decision making narrative: Toward the end of her routine dialysis today this patient developed hypotension. Upon arrival here her blood pressure has normalized. She continues to maintain normal vital signs and states that she is feeling better. She came by ambulance who did place an IV and I did order her half a L of normal saline. The patient did not receive much of this as I do not want to overload her with fluids and her blood pressure has been well maintained. Labs are acquired and these returned with reassuring findings. Lab Data Labs: Lab Results 07/14/25 Range/Units 16:31 WBC 8.83 (4.50-11.00) K/uL RBC 3.22 L (4.00-5.20) m/uL Hgb 10.7 L (12.0-16.0) gm/dL Hct 34.0 (33.0-51.0) % MCV 106 H (80-100) fL MCH 33 (26-34) pg MCHC 32 (32-36) gm/dL RDW Coeff of Nba 14.9 (11.5-15.5) % Plt Count 168 (140-440) K/uL Neut % (Auto) 81.7 H (42.0-72.0) % Lymph % (Auto) 8.5 L (20-44) % [place] % (Auto) 6.8 (0.0-11.0) % Eos % (Auto) 1.5 (0.0-7.0) % Baso % (Auto) 0.5 (0.0-3.0) % Neut # (Auto) 7.20 H (1.7-7.0) K/uL Lymph # (Auto) 0.80 L (0.90-2.90) K/uL [place] # (Auto) 0.60 (0.00-0.90) K/UL Eos # (Auto) 0.13 (0.00-0.50) K/uL Baso # (Auto) 0.04 (0.00-0.30) K/uL Abs Immat Gran (auto) 0.09 (0.00-0.30) K/uL Imm/Tot Granulo (auto) 1.0 % ECG Data Attestation: I personally reviewed and interpreted this ECG as follows: Interpretation: Normal sinus rhythm. Rate is 95 beats per minute. There are no ST or T-wave abnormalities. Discharge Plan Discharge Clinical Impression: Hypotensive episode, Dialysis patient Patient Disposition: Home w/ Parent or Adult Condition: Improved Additional Instructions: Continue current plans. Follow up with MD return if symptoms are persistent or worsening. Prescriptions: No Action allopurinol 100 mg tablet Patient Comments: [NO ORIGINAL SIG] cyclobenzaprine 10 mg tablet 3XD nystatin 100,000 unit/gram ointment topical amiodarone 200 mg tablet DAILY doxycycline hyclate 100 mg tablet oxycodone 5 mg tablet Patient Comments: [NO ORIGINAL SIG] Eliquis 2.5 mg tablet omeprazole 20 mg capsule,delayed release(DR/EC) 20 mg PO DAILY Velphoro 500 mg tablet,chewable 500 mg PO TID Ferretts 325 mg (106 mg iron) tablet 325 mg PO DAILY acetaminophen .Route Follow Up/Referrals: Samir Rascon MD [Primary Care Provider, Family Practice] Stand Alone Forms: [employer] Info Instructions
[2025-07-14 16:53] VITALS: BP 100/61
[2025-07-14 16:53] LABS: Hematocrit* 34.0 % (33.0-51.0); Hemoglobin* 10.7 gm/dL (12.0-16.0); Immature Granulocytes Abs Auto 0.09 K/uL (0.00-0.30); Immature Granulocytes Pct Auto 1.0 %; Mean Corpuscular HGB Conc 32 gm/dL (32-36); Mean Corpuscular Hemoglobin 33 pg (26-34); Mean Corpuscular Volume 106 fL (80-100); RDW Coefficient of Variation % 14.9 % (11.5-15.5); Red Blood Count* 3.22 m/uL (4.00-5.20); White Blood Count* 8.83 K/uL (4.50-11.00)
[2025-07-14 16:54] VITALS: BP 100/61; PULSE 96; RESP 16; O2SAT 97
[2025-07-14 17:01] LABS: Lymphocytes Absolute Auto 0.80 K/uL (0.90-2.90); Slide Review Reflex No
[2025-07-14 17:22] VITALS: BP 98/65; PULSE 94; RESP 16; O2SAT 97
[2025-07-14 18:28] LABS: Chloride* 96 mmol/L (96-114); Potassium* 4.5 mmol/L (3.6-5.1); Sodium* 134 mmol/L (135-149)
[2025-07-14 18:31] LABS: Anion Gap 10 mEq/L (7-15); Blood Urea Nitrogen* 19 mg/dL (7-30); Calcium* 9.4 mg/dL (8.4-10.6); Carbon Dioxide* 28 mmol/L (20-32); Creatinine* 2.2 mg/dL (0.5-1.5); Est. Creatinine Clearance* 18.01; Estimated Glomerular Filt Rate 23 ml/min; Glucose* 130 mg/dL (60-115)
[2025-07-14 19:00] VITALS: BP 116/76; PULSE 82; RESP 18; O2SAT 97
== END 2025-07-14 19:04 | disposition home or self-care (01) ==
PROVIDERS: Emergency Provider Emergency Medicine Emergency Medical Services; PCP Family Medicine
DX: T80.89XA Other complications following infusion, transfusion and therapeutic injection, initial encounter (principal); I95.9 Hypotension, unspecified
CPT/HCPCS: 36415; 80048; 85025; 93005; 99284

== ENCOUNTER 2025-07-14 18:45 | Outpatient (CLI) | payer MEDICARE, BC, SELFPAY | END 2025-07-14 18:46 | disposition home or self-care (01) | PROVIDERS: PCP Family Medicine; Visit Provider Emergency Medicine Emergency Medical Services | DX: I95.9 Hypotension, unspecified (principal); Z99.2 Dependence on renal dialysis | CPT/HCPCS: A0425; A0428 ==

== ENCOUNTER 2025-08-14 14:47 | Outpatient (CLI) | payer MEDICARE, BC, SELFPAY ==
--- NOTE | 2025-08-14 15:30 | CRLHL7_ITS ---
For Patients: As a result of the Century Cures Act, medical imaging exams and procedure reports are released immediately into your electronic medical record. You may view this report before your referring provider. If you have questions, please contact your health care provider. Indication: INCISIONAL HERNIA W/O OBSTRUCTION OR GANGRENE Technique: Noncontrast CT abdomen and pelvis Please note that all CT scans at this facility use dose modulation, iterative reconstruction, and/or weight-based dosing when appropriate to reduce radiation dose to as low as reasonably achievable. Comparison: 06/12/2024 Findings: Linear areas of atelectasis/scarring are present within both lower lobes. Noncontrast enhanced liver is within normal limits. Spleen is normal. Large mostly fat circumscribed left adrenal mass measures 10.6 cm, not significantly changed. Right adrenal mass measures 4.1 cm, also similar. Bilateral renal cortical atrophy. No hydronephrosis. Atherosclerotic changes. Pancreas normal. No adenopathy. No pelvic mass. Left paramidline hernias present containing loops of transverse colon. The defect in the fascia measures 4.2 cm. Additionally, there is an adjacent left paramidline hernia within the lower abdominal wall with the defect measuring 4.7 cm. This contains loops of small bowel. Overall weakening of the abdominal wall is present with muscle atrophy. Multifocal subcutaneous granulomas noted. Fusion across the L3-4 disc spaces. No vertebral body compression fracture. Leftward curvature lumbar spine. Gallbladder absent. Impression: Diffuse abdominal wall muscle atrophy with associated weakening and pannus formation with lobular left paramidline abdominal wall hernias containing loops of noninflamed small and large bowel. Overall, the hernia measures approximately 12.2 cm combined dimension. 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 Bilateral renal cortical atrophy with bilateral renal cysts. Please note that all CT scans at this facility use dose modulation, iterative reconstruction, and/or weight-based dosing when appropriate to reduce radiation dose to as low as reasonably achievable. Dictated by Andrew Rodgers MD @ 08/15/2025 9:20:05 AM (Electronically Signed)
== END 2025-08-14 14:48 | disposition home or self-care (01) ==
LOC: CT 14:49
PROVIDERS: PCP Family Medicine; Visit Provider Surgery
DX: K43.2 Incisional hernia without obstruction or gangrene (principal); N28.1 Cyst of kidney, acquired
CPT/HCPCS: 74176

== ENCOUNTER 2025-08-14 14:49 | Outpatient (CLI) | payer MEDICARE, BC, SELFPAY ==
--- NOTE | 2025-08-14 15:00 | CRLHL7_ITS ---
For Patients: As a result of the Century Cures Act, medical imaging exams and procedure reports are released immediately into your electronic medical record. You may view this report before your referring provider. If you have questions, please contact your health care provider. INDICATION: : Right leg pain, increased pain, status post contusion. TECHNIQUE: : CT right tibia and fibula without contrast. COMPARISON: : Radiographs: 04/25/2025. FINDINGS: : Chronic right distal tibial diaphyseal fracture deformity status post intramedullary nail of the distal tibia extending through the talus and calcaneus. Transfixing tibial, syndesmotic, and calcaneal screws. The hardware is intact. No evidence of loosening within the limits of extensive osseous demineralization. No significant bony fusion across the ankle arthrodesis. Healed nondisplaced distal fibular shaft fracture. No acute fracture or dislocation. Severe knee osteoarthritis partially imaged. Severe fatty atrophy of all imaged musculature. A focal 1.6 x 0.7 cm area of nodular retractile scar-like tissue along the anteromedial proximal tibial diaphysis with underlying smooth periosteal reaction of the tibia and no definite erosion. No significant surrounding subcutaneous edema. Atherosclerotic calcifications of the imaged arteries. Neurovascular structures and tendons are otherwise unremarkable. No discrete fluid collection or subcutaneous mass. IMPRESSION: : 1. Healed distal tibial fracture post ORIF without hardware complication. No acute osseous abnormality. 2. Proximal anteromedial pretibial soft tissue scarring and underlying tibial periosteal reaction without findings of osteomyelitis or significant surrounding edema. Correlate with exam. Please note that all CT scans at this facility use dose modulation, iterative reconstruction, and/or weight-based dosing when appropriate to reduce radiation dose to as low as reasonably achievable. Dictated by Martin Gomez MD @ 08/15/2025 10:45:19 AM (Electronically Signed)
--- NOTE | 2025-08-14 16:00 | CRLHL7_ITS ---
For Patients: As a result of the Century Cures Act, medical imaging exams and procedure reports are released immediately into your electronic medical record. You may view this report before your referring provider. If you have questions, please contact your health care provider. INDICATION: Posterior calf pain, increased pain after contusion TECHNIQUE: Ultrasound venous duplex lower right extremity. Compression venous exam was performed using reyes-scale, color Doppler, and spectral Doppler imaging. COMPARISON: None. FINDINGS: Sonographic imaging demonstrates the right common femoral, deep femoral, superficial femoral, popliteal, posterior tibial and greater saphenous and the contralateral left common femoral veins to be fully compressible with normal color Doppler blood flow. IMPRESSION: Normal right lower extremity venous ultrasound, no sign of deep venous thrombosis. Dictated by Antony Zhang MD @ 08/14/2025 7:22:37 PM (Electronically Signed)
== END 2025-08-14 14:50 | disposition home or self-care (01) ==
LOC: CT 14:50
PROVIDERS: PCP Family Medicine; Visit Provider Physician Assistant
DX: M79.661 Pain in right lower leg (principal); S82.391D Other fracture of lower end of right tibia, subsequent encounter for closed fracture with routine healing
CPT/HCPCS: 73700; 74176; 93971